=== PATIENT | male | born 1970 | race Caucasian/White ===

== ENCOUNTER 2025-04-25 18:33 | Emergency (ER) | payer MEDICARE, SELFPAY ==
--- NOTE | ~2025-04-25 | CT_ITS ---
CLINICAL HISTORY: RLQ pain CT abdomen and pelvis with contrast Comparison: None provided Findings: Mild bibasilar atelectasis and/or pneumonitis. Emphysematous changes and scarring also noted in the imaged lung bases. Mild/borderline cardiomegaly partially imaged. Steatotic change of the fat deposition of the liver noted. Gallbladder is distended. Imaged CBD measures 1 cm diameter. Adjacent low-density in the pancreas measures 2.2 cm, involving head and uncinate process of the pancreas, not further characterized by CT. Differential considerations include forming pseudo sinus dorsal sequela of pancreatitis. Pancreatic neoplasm not excluded given mild/borderline ductal dilatation of the imaged main pancreatic duct. Acute adjacent inflammatory stranding is noted as can be seen with a acute and/or recurrent pancreatitis. Mild bilateral adrenal hyperplasia. Spleen is nonenlarged. No hydronephrosis. Calcified and noncalcified plaque involving the imaged aorta and its branches. Small mesenteric, peripancreatic, and retroperitoneal lymph nodes are nonspecific and likely reactive. Mild small bowel dilatation likely due to sentinel loop ileus including left hemiabdomen. No definite small bowel obstruction at this time. Imaged appendix is within normal limits (image 53 of series 3). Wall thickening of the large intestine is nonspecific and may reflect colitis, including imaged cecum. Otherwise, severe stool burden present. Prostate gland measures 4.4 cm transverse. Mild wall thickening of the urinary bladder is nonspecific. Degenerative changes include the hips, SI joints, and spine. Degenerative disc changes and facet arthropathy are multifocal. Mild retrolisthesis of the L3-L4. Moderate height loss of the T11 compression fracture appears old/chronic and accentuated by upper endplate Schmorl's node. Vacuum disc phenomenon is multifocal. IMPRESSION: 1. Acute inflammatory stranding in the upper abdomen is concerning for acute or recurrent pancreatitis. 2. Mild biliary ductal dilatation and borderline pancreatic duct dilatation of the nonspecific by CT. Please consider ERCP, if clinically indicated, when clinically able. 3. Indeterminate cystic structure involving head and uncinate process of the pancreas may reflect sequela of pancreatitis. Please consider short-term follow-up or additional diagnostics. Pancreatic neoplasm not excluded by CT at this time. This document has been electronically signed by: Brandyn Davies MD on 04/26/2025 02:26:35
[2025-04-25 18:44] VITALS: BP 164/102; PULSE 102; O2SAT 97
[2025-04-25 18:50] VITALS: BP 175/106; PULSE 93; RESP 16; TEMP 36.8; O2SAT 97; BMI 22.0
[2025-04-25 20:05] LABS: MANUAL DIFF FLAG NO
[2025-04-25 20:07] VITALS: BP 178/105; PULSE 93; RESP 19; O2SAT 96
--- NOTE | 2025-04-25 20:07 | PC.NURSE ---
Labs drawn and sent for analysis. Results pending.
[2025-04-25 20:08] LABS: Appearance Urine Clear; Glucose Urine UA Negative (Negative); PH 6.0 (5.0-9.0); Specific Gravity - Urine 1.010 (1.005-1.025)
[2025-04-25 20:11] LABS: Hematocrit 45.0 % (42.0-52.0); Hemoglobin 16.2 g/dl (14.0-18.0); Imm Gran Abs Auto 0.12 X10*3/uL (0.00-0.03); Imm Gran Pct Auto 0.9 % (0.0-0.4); Lymphocytes Absolute Auto 2.0 X10*3/uL (1.2-4.9); Mean Corpuscular HGB Conc 36.0 g/dl (31.0-36.0); Mean Corpuscular Hemoglobin 34.2 pg (27.0-33.0); Mean Corpuscular Volume 94.9 fL (80.0-98.0); NRBC Abs Auto 0.000 X10*3/uL (0.0-0.012); NRBC Pct Auto 0.0 /100WBC (0.0-0.2); Platelet Count 348 X10*3/uL (160-400); Red Blood Count 4.74 X10*6/uL (4.60-5.80); White Blood Count 14.1 X10*3/uL (4.8-10.8)
[2025-04-25 20:20] LABS: Alanine Aminotransferase 9 U/L (0-40); Albumin Level 4.6 g/dL (3.5-5.0); Alkaline Phosphatase 102 U/L (39-117); Anion Gap 14 (12-20); Aspartate Amino Transferase 24 U/L (5-37); Blood Urea Nitrogen 5 mg/dL (9-16); Calcium 9.3 mg/dL (8.4-10.2); Carbon Dioxide 26 mmol/L (22-29); Chloride 100 mmol/L (96-108); Creatinine Clr Calc Pharmacy 114.8; Estimated Glomerular Filt Rate > 60; Potassium 3.8 mmol/L (3.3-5.1); Sodium 136 mmol/L (135-145); Total Protein 7.2 g/dL (6.5-8.0)
--- NOTE | 2025-04-25 20:52 | ED.GENADULT ---
HPI - General Adult General Chief complaint: General Medical Stated complaint: lower Ab pain and cramps x2 days radiates to back Time Seen by Provider: 04/25/25 20:50 Source: patient, RN notes reviewed and old records reviewed Mode of arrival: ambulatory Limitations: no limitations History of Present Illness ED Provider: Estefanía MADRIGAL narrative: 55-year-old male presents for evaluation of right-sided abdominal pain. He reports that he was lifting 3 days ago when he was lifting up his bed frame without any assistance. He did not have any pain at that time but developed pain the next morning pain He thought he had pulled a muscle in his head and uncinate back pain His pain worsened, was initially periumbilical now localized to the right lower abdomen. He denies any other significant symptoms including nausea vomiting, diarrhea, black or bloody stool Denies any fevers or chills pain Denies any burning with urination pain His pain radiates to his back in his currently a 01/01 Related Data Allergies Allergy/AdvReac Type Severity Reaction Status Date / Time Seasonal Allergies Allergy Intermediate Itchy Eyes Verified 04/25/25 18:56 Review of Systems Constitutional: Constitutional: Denies body ache(s), Denies chills and Denies fever(s) Eyes: Eyes: Denies blurry vision ENT: Denies vertigo and Denies dizziness Cardiovascular: Cardiovascular: Denies chest pain and Denies dyspnea on exertion Respiratory: Respiratory: Denies cough and Denies dyspnea on exertion Gastrointestinal: Gastrointestinal: Reports abdominal pain, Denies nausea and Denies vomiting Musculoskeletal: Musculoskeletal: Denies back pain Integumentary/Breasts: Skin/Breast: Denies rash Neurologic: Denies vertigo and Denies dizziness [facility] Social History Social History Alcohol intake: current Smoked in Last 30 Days: Yes Use of substances other than those prescribed or required for medical reasons: No Advance Directives: No Advance Directives Information Provided: No Physical Exam ED Vital Signs: Vital Signs - 24 hr 04/25/25 18:50 04/25/25 20:07 04/25/25 21:55 Temperature 98.3 F 97.7 F Pulse Rate 93 93 98 Respiratory Rate 16 19 18 Blood Pressure 175/106 H 178/105 H 174/104 H Pulse Oximetry 97 96 97 Oxygen Delivery Method Room Air Room Air Room Air BMI result Body Mass Index 22.0 Const General: healthy appearing, comfortable, no acute distress, alert and awake Nutritional Appearance: well nourished Orientation/consciousness: patient oriented x3 HENMT Head: Yes normocephalic and Yes atraumatic Eyes Eyelids: Yes eyelids normal Conjunctivae: conjunctivae normal Sclerae: sclerae normal Corneas: corneas normal Pupils: Equal, round and reactive pupils present EOM: EOMs intact bilaterally Neck Neck: Yes full ROM Resp Effort & Inspection: normal respiratory effort, able to speak in complete sentences and not labored Cardio Rate: regular rate Rhythm: regular rhythm GI Inspection: No distended Palpation (GI): Soft to palpation, not firm, Tenderness to palpation present (GI) in the RLQ and in the RUQ; Bardales's sign negative, Guarding due to palpation present (GI) in the RLQ and not rigid Auscultation: normoactive bowel sounds Skin General skin exam: elasticity normal Neuro General: patient oriented x3 Cranial nerves: Yes Equal, round and reactive pupils present and Yes Bilaterally intact EOM present Cognition (Neuro): normal cognition Extrem Other: Moving all extremities well without any obvious deformities Course Reevaluation(s) Reevaluation #1: The patient expressed desire to leave against medical advice prior to his CT scan that took several hours to be obtained. I was able to convince the patient to wait for the pictures to be taken but he does not want to wait for the report. He understands the risks of leaving of acute appendicitis and ultimately appendiceal perforation and sepsis/peritonitis. He reports he will come back if he feels worse or develops a fever Time: 00:16 Medications Administered Discontinued Medications Generic Name Dose Route Start Last Admin Trade Name Gustavo PRN Reason Stop Dose Admin Iohexol 85 ml 04/26/25 00:02 04/26/25 00:03 Iohexol 350 Mg/Ml 100 Ml Infus..Btl IV 04/26/25 00:03 85 ml ONCE ONE Administration Ketorolac Tromethamine 30 mg 04/25/25 21:17 04/25/25 21:35 Ketorolac Tromethamine 30 Mg/Ml Vial IVPUSH 04/25/25 21:18 30 mg ONCE ONE Administration Medical Decision Making Medical Decision Making MDM Narrative: 55-year-old male presents for evaluation of abdominal pain. The patient reports his pain started the day after lifting heavy, this possibly has a muscle strain or inguinal hernia. However he has a leukocytosis of 14.1 1000. His pain was initially umbilical and radiates to the right lower abdomen, I am concerned for acute appendicitis. Plan for CT scan to evaluate. His urinalysis is clear, less likely obstructive uropathy or pyelonephritis Differential Diagnosis Differential Diagnoses: The differential diagnosis associated with the presentation includes As above Lab Data MDM Lab Attestation statement: I reviewed the patient's lab results. Mild leukocytosis, no significant anemia. Normal platelet count. No electrolyte abnormalities warranting intervention. 04/25/25 20:01 04/25/25 20:01 Labs: Lab Results 04/25/25 04/25/25 Range/Units 19:56 20:01 WBC 14.1 H (4.8-10.8) X10*3/uL RBC 4.74 (4.60-5.80) X10*6/uL Hgb 16.2 (14.0-18.0) g/dl Hct 45.0 (42.0-52.0) % MCV 94.9 (80.0-98.0) fL MCH 34.2 H (27.0-33.0) pg MCHC 36.0 (31.0-36.0) g/dl RDW 13.1 (11.0-16.0) % Plt Count 348 (160-400) X10*3/uL MPV 9.0 L (9.4-12.4) fL Immature Gran % (Auto) 0.9 H (0.0-0.4) % Neut % (Auto) 70.8 (45-73) % Lymph % (Auto) 14.5 L (20-40) % [place] % (Auto) 7.6 (2-11) % Eos % (Auto) 5.6 H (0-4) % Baso % (Auto) 0.6 (0-2) % Lymph # (Auto) 2.0 (1.2-4.9) X10*3/uL Churchill # (Auto) 1.1 (0.1-1.2) X10*3/uL Eos # (Auto) 0.8 H (0.0-0.4) X10*3/uL Baso # (Auto) 0.1 (0.0-0.2) X10*3/uL Abs Immat Gran (auto) 0.12 H (0.00-0.03) X10*3/uL Absolute Neuts (auto) 10.0 H (2.0-8.3) x10*3/uL Absolute Nucleated RBC 0.000 (0.0-0.012) X10*3/uL Nucleated RBC % (auto) 0.0 (0.0-0.2) /100WBC Sodium 136 (135-145) mmol/L Potassium 3.8 (3.3-5.1) mmol/L Chloride 100 (96-108) mmol/L Carbon Dioxide 26 (22-29) mmol/L Anion Gap 14 (12-20) BUN 5 L (9-16) mg/dL Creatinine 0.66 (0.5-1.4) mg/dL Estim Creat Clear Calc 114.8 Estimated GFR > 60 Random Glucose 96 (60-115) mg/dL Calcium 9.3 (8.4-10.2) mg/dL Total Bilirubin 0.6 (0.0-1.0) mg/dL AST 24 (5-37) U/L ALT 9 (0-40) U/L Alkaline Phosphatase 102 (39-117) U/L Total Protein 7.2 (6.5-8.0) g/dL Albumin 4.6 (3.5-5.0) g/dL Urine Color Yellow Urine Appearance Clear Urine pH 6.0 (5.0-9.0) Ur Specific [place] 1.010 (1.005-1.025) Urine Protein Negative (Neg-Trace) mg/dL Urine Glucose (UA) Negative (Negative) mg/dL Urine Ketones 15 (Negative) mg/dL Urine Blood Negative (Negative) Urine Nitrite Negative (Negative) Ur Leukocyte Esterase Negative (Negative) Discharge Plan Discharge Clinical Impression: Abdominal pain Patient Disposition: Left Against Medical Advice Instructions: Abdominal Pain (ED) Additional Instructions: [place] [id number]. Given the location and radiation of your pain I am concerned for acute appendicitis. Therefore you are leaving against medical advice as you are leaving prior to the report of your CT scan. Return to the ER immediately if you develop severe or worsening pain, or if you develop a fever. Stand Alone Forms: Against Medical Advice Print Language: Faroese
[2025-04-25 21:55] VITALS: BP 174/104; PULSE 98; RESP 18; TEMP 36.5; O2SAT 97
--- NOTE | 2025-04-25 22:03 | PC.NURSE ---
Addendum entered by Lore Sumner 04/25/25 22:03: AUGUST Euceda aware of BP, no new orders at this time Original Note: aware of BP
[2025-04-26] MEDS: iohexoL 350 MG/ML 100 ML INFUS..BTL 85 ML IV (00:03)
[2025-04-26 00:18] VITALS: BP 171/102; PULSE 100; RESP 20; TEMP 36.6; O2SAT 99
--- NOTE | 2025-04-26 00:29 | PC.NURSE ---
pt requesting to leave after CT scan. provider aware. pt left AMA
[2025-04-26 00:30] VITALS: BP 171/102; PULSE 100; RESP 20; TEMP 36.6; O2SAT 99
== END 2025-04-26 02:32 | disposition left against medical advice (07) ==
PROVIDERS: Emergency Provider Emergency Medicine Emergency Medical Services; PCP Family Medicine
DX: R10.9 Unspecified abdominal pain (principal); Z53.29 Procedure and treatment not carried out because of patient's decision for other reasons
CPT/HCPCS: 36415; 74177; 80053; 81003; 85025; 96374; 99284; 99285; J1885; Q9967

== ENCOUNTER → 2025-04-25 21:17 | Outpatient (BNV) | payer MEDICARE, MEDICAID, SELFPAY | PROVIDERS: Emergency Provider Emergency Medicine Emergency Medical Services; PCP Family Medicine; Visit Provider Radiology Neuroradiology | DX: K83.8 Other specified diseases of biliary tract (principal) | CPT/HCPCS: 74177 ==

== ENCOUNTER 2025-06-24 21:07 | Inpatient (IN) | payer MEDICARE, SELFPAY ==
--- OUTSIDE RECORDS SUMMARY | 2014-03-19 23:00 | XMS_ITS | Encounter Summary ---
Author Organization [facility] Address [address] [place] [phone] Phone Care Team Providers Care Plant Changer Name Role Phone Unavailable Primary Care Provider Unavailabl e Reason for Visit * MRI/CAT Scan - Closed Specialty Diagnoses / Procedures Referred By Libertad ellis Referred To Contact Procedures MRI Brain Outside (No Interpretation) System, Provider Not In, [facility] [address] [address] Referral ID Status Reason Start Date Expiration Date Visits Re quested Visits Authorized [id number] Closed 11/23/2017 11/23/2018 1 1 Encounter Details Date Type Department Care Team (Late st Contact Info) Description 03/20/2014 Hospital Encounter [facility],Outside Imaging [address] [place] [address] System, Provider Not In, [facility] [address] [address] Social History Tobacco Use Types Packs/Day Years Used Date Smoking Tobacco: Every Day Cigarettes 0.5 30 Smokeless Tobacco: Never Alcohol Use Standard Drinks/Week Comments Yes 2 (1 standard drink = 0.6 oz pur e alcohol) occasionally Child or Family Care Answer Date Record ed Do you have problems with on e of the following making it difficult for you to work, study, or receive health care? I choose not to answer 07/14/2021 Education Answer Date Recorded Are you interested in more education? Not on kirk e 07/19/2023 Are you concerned about learning? Not on file 07/19/2023 No 07/19/2023 No 07/19/2023 Food Answer Date Recorded Within the past 6 months we worried whether our food would run out before we got money to buy more. Never True 07/14/2021 Within the past 6 months the food we bought just didn't last and we didn't have enough money to get more. Never True Residential Stability Answer Date Recor ded What is your housing situation today? I have aracelis frazier 07/14/2021 How many times have you moved in the past 12 tue ths? One time 07/14/2021 Paying for Meds Answer Date Recorded Do you have trouble paying for medicines? No 07/14/2021 Paying Utility Bills Answer Date Record ed Do you have trouble paying your heating or elect ricity bill? No 07/14/2021 Transportation Answer Date Recorded Has the lack of transportati on kept you from medical appointments or from getting medications? I choose not to answer 07/14/2021 Unemployment Answer Date Recorded Are you currently unemployed or working on a part-time or temporary basis, and looking for work? No 07/14/2021 Digital Access Answer Date Recorded No 12/20/2022 No 12/20/2022 Reliable internet access at home? Not on file 12/20/2022 Device with a working camera? Not on file Sex and Gender Information Value Date Recorded Sex Assigned at Male 09/22/2017 6:08 PM EST Legal Sex Male 9:37 PM EDT Gender Identity Male 09/22/2017 6:08 PM EST Sexual Orientation Lesbian or Mcnally 09/22/2017 6: 08 PM EST Occupation Industry Job Start Date Job End Date Disabled Not on file Not on file Not on file documented as of this encounter Functional Status * Calculated C-SSRS Risk Score (Lifetime/Recent) Answer Date of Assessment Author No Risk Indicated 06/18/2022 4:11 AM Veronica Faye RN * [place] Suicide Severity Rating Scale (Screener/Recent Self-Report) Question Answer Date of Assessment Author 1. Wish to be (Past 1 Month) No 022 4:11 AM Veronica Amos, DEBBY 2. Non-Specific Active Suici eliseo Thoughts (Past 1 Month) No 06/18/2022 4:11 AM Nikos Amos, RN 6. Suicidal Behavior (Lifetime) No 4:11 AM Veronica Amos, DEBBY documented as of this encounter Plan of Treatment Not on file documented as of this encounter Procedures Procedure Name Priority Date/Time Associated Diagnosis Comments MRI BRAIN OUTSIDE (NO INTERPRETATION) Routine 03/20/2014 12:00 AM EDT documented in this encounter Results * MRI Brain Outside (No Interpretation) (03/20/2014 12:00 AM EDT) Narrative SYSTEMGENERATED, DOCUMENTATION - 11/23/2017 2:01 PM EDT This study is for PACS storage only and not for interpretation. us Provider Not In System [facility] OUTSIDE IMAG[facility] W /OUT INTERPRETATION Final Result documented in this encounter Visit Diagnoses Not on filedocumented in this encounter Additional Source Comments The information contained in this document represents components of the legal health record. It is not the complete legal health record.[facility]
--- NOTE | ~2025-06-24 | CT_ITS ---
CLINICAL HISTORY: epigastric pain CT abdomen and pelvis with contrast Comparison: CT/SR - CT ABDOMEN PELVIS W IV CON - 04/25/25 23:58 EDT Findings: LIMITED CHEST: Scarring/atelectasis at the lung bases. LIVER: No focal liver lesion. BILIARY: No gallbladder wall thickening, radiopaque stone, or ductal dilatation. PANCREAS: Increased peripancreatic inflammatory stranding and peripancreatic edema. No organized fluid collection. Normal parenchymal enhancement. There is again question of a hypoenhancing mass in the pancreatic head measuring 1.9 x 1.4 cm on today's exam. SPLEEN: No splenomegaly. KIDNEYS: No hydronephrosis or radiopaque stone. ADRENALS: No nodule. VASCULAR: No aneurysm. 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 RETROPERITONEUM: No lymphadenopathy or mass. BOWEL/MESENTERY: No evidence of obstruction. No free fluid or air. ABDOMINAL WALL: No mass or significant abnormality. URINARY BLADDER: No focal wall thickening. PELVIC NODES: No pelvic lymphadenopathy. PELVIC ORGANS: Normal for age. BONES: No acute fracture. OTHER: Negative. IMPRESSION: Compared to prior examination on 04/26/2025, interval increase in peripancreatic inflammatory stranding and peripancreatic edema suggesting ongoing pancreatitis. No organized fluid collection or abscess. Pancreatic head hypoenhancing lesion measuring 1.9 cm, suspicious for underlying mass. 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 This document has been electronically signed by: eNena Johnson MD on 06/25/2025 00:41:11
--- NOTE | ~2025-06-24 | MR_ITS ---
EXAMINATION: MRCP HISTORY: ?pancreatitis and pancreatic mass COMPARISON: Correlation is made with CT scans of the abdomen performed 06/24/2025 and 04/26/2025. TECHNIQUE: Axial gradient echo in and out of phase T1, axial T2 and fat suppressed T2, and coronal haste T2 with fat saturation images were obtained through the abdomen. 3D MRCP Reconstructed images and thick slab imaging of the biliary tree were obtained. FINDINGS: There is heterogeneous loss of signal intensity within the liver on opposed phase imaging, consistent with steatosis. There is no intrahepatic biliary ductal dilatation. There is a lack of a normal flow void in the left intrahepatic portal vein compatible with thrombosis. There is extension into the main portal vein. No evidence of cholelithiasis. The common bile duct is normal in caliber. There is no evidence of choledocholithiasis. The pancreas is enlarged and there is a moderate to large amount of peripancreatic inflammatory stranding and fluid, consistent with the given history of acute pancreatitis. Evaluation for pancreatic necrosis is not possible without intravenous contrast material. Again seen is a 1.7 x 1.3 cm probable mass of the pancreatic head. This cannot be adequately evaluated without intravenous contrast. The pancreatic duct is normal in caliber. The spleen, adrenals, and kidneys have an unremarkable unenhanced appearance. No retroperitoneal lymphadenopathy is identified. The visualized bones demonstrate normal marrow signal intensity. MR/MR MRCP IMPRESSION: 1. Findings consistent with acute pancreatitis as described. Evaluation for necrosis is not possible without intravenous contrast. 2. Probable 1.7 x 1.3 cm mass of the pancreatic head. This cannot be adequately evaluated without intravenous contrast material. 3. 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 4. No evidence of cholelithiasis or choledocholithiasis. 5. Findings were sent to iVckie Garcia NP by secure text message on 06/25/2025 at 11:05 AM. Electronically signed by: Raad Rosa MD 06/25/2025 11:05 AM [facility]
[2025-06-24 21:16] VITALS: BP 168/92; PULSE 88; O2SAT 100
[2025-06-24 21:21] VITALS: BP 170/93; PULSE 88; RESP 20; TEMP 36.7; O2SAT 96; BMI 22.0
[2025-06-24 22:06] LABS: MANUAL DIFF FLAG NO
[2025-06-24 22:14] LABS: Hematocrit 47.3 % (42.0-52.0); Hemoglobin 16.5 g/dl (14.0-18.0); Imm Gran Abs Auto 0.17 X10*3/uL (0.00-0.03); Imm Gran Pct Auto 1.2 % (0.0-0.4); Lymphocytes Absolute Auto 2.1 X10*3/uL (1.2-4.9); Mean Corpuscular HGB Conc 34.9 g/dl (31.0-36.0); Mean Corpuscular Hemoglobin 33.5 pg (27.0-33.0); Mean Corpuscular Volume 96.1 fL (80.0-98.0); NRBC Abs Auto 0.000 X10*3/uL (0.0-0.012); NRBC Pct Auto 0.0 /100WBC (0.0-0.2); Platelet Count 295 X10*3/uL (160-400); Red Blood Count 4.92 X10*6/uL (4.60-5.80); White Blood Count 14.6 X10*3/uL (4.8-10.8)
[2025-06-24 22:16] LABS: Appearance Urine Clear; Glucose Urine UA Negative (Negative); PH 5.5 (5.0-9.0); Specific Gravity - Urine 1.010 (1.005-1.025)
[2025-06-24 22:29] LABS: Alanine Aminotransferase 18 U/L (0-40); Albumin Level 4.6 g/dL (3.5-5.0); Alkaline Phosphatase 94 U/L (39-117); Anion Gap 14 (12-20); Aspartate Amino Transferase 49 U/L (5-37); Blood Urea Nitrogen 7 mg/dL (9-16); Calcium 9.1 mg/dL (8.4-10.2); Carbon Dioxide 29 mmol/L (22-29); Chloride 98 mmol/L (96-108); Creatinine Clr Calc Pharmacy 101.0; Estimated Glomerular Filt Rate > 60; Potassium 4.3 mmol/L (3.3-5.1); Sodium 137 mmol/L (135-145); Total Protein 7.2 g/dL (6.5-8.0)
[2025-06-24 22:39] LABS: Lipase > 3000 U/L (8-78)
[2025-06-24 23:05] LABS: Triglycerides 50 mg/dL (<150)
--- NOTE | 2025-06-24 23:18 | ED_ITS ---
HPI - General Adult General Chief complaint: Abdominal Pain Stated complaint: R side flank pain x1 week Time Seen by Provider: 06/24/25 22:48 Source: patient and EMS Mode of arrival: EMS Limitations: no limitations History of Present Illness ED Provider: Dr. Ana Paula Escobedo HPI narrative: patient comes to the emergency room complaining of 2 weeks of epigastric pain that radiates towards the back. Patient states that today he started having pain and becoming more nauseous and vomiting. patient admits that he drank 4 beers throughout the day today, states that he was watching the football game. States that he usually does not drink large amounts of alcohol, binge drinking or chronic EtOH drinker. Patient denies any history of gastritis, small bowel obstructions or kidney stones. No issues with gallstones in the past. Related Data Allergies Allergy/AdvReac Type Severity Reaction Status Date / Time Seasonal Allergies Allergy Intermediate Itchy Eyes Verified 06/24/25 21:23 Review of Systems 2 Review of Systems: Constitutional : No Weight loss, No Fever, No Chills, No Night Sweats, No Fatigue, No Malaise ENT/Mouth : No Hearing loss, No Ear Pain, No Nasal Congestion, No Sinus Pain, No Hoarseness, No sore throat, No Rhinorrhea, No Swallowing Difficulty Eyes: No Eye Pain, No Swelling, No Redness, No Foreign Body, No Discharge, No Vision Changes Cardiovascular : No Chest Pain, No SOB, No Dyspnea on Exertion, No Orthopnea, No Edema, No Palpitations Respiratory : No Cough, No Sputum, No Wheezing, No Smoke Exposure, No Dyspnea Gastrointestinal : Complaining of nausea and vomiting, no diarrhea, complaining of epigastric pain radiating towards the back, No Hematochezia, No Melena Genitourinary : no irregular bleeding, No Dysuria, No Urinary Frequency, No Hematuria, No Urinary Incontinence, No Urgency, No Flank Pain, No Urinary Flow Changes, No Hesitancy Musculoskeletal : No joint pain, No Myalgias, No Joint Swelling Skin : No Skin Lesions, No rash Neuro : No Weakness, No Numbness, No Paresthesias, No Loss of Consciousness, No Dizziness, No Headache Psych : No Anxiety/Panic, No Depression, No SI/HI/AH/VH, No Social Issues, Heme/Lymph: No Bruising, No Bleeding,No Lymphadenopathy Endocrine : No Polyuria, No Polydipsia, No Temperature Intolerance PMFSH Past Medical History Medical History Seizures Parkinson's disease Social History Social History Alcohol intake: current Alcohol intake frequency: a few times a week Smoked in Last 30 Days: No Use of substances other than those prescribed or required for medical reasons: No Advance Directives: No Advance Directives Information Provided: Yes Physical Exam ED Exam Exam: Appearance: Alert. Oriented X3. seems uncomfortable Eyes: Pupils equal, round and reactive to light. has xanthelasma under the right lower eyelid ENT: Pharynx normal. Neck: Normal inspection. Neck supple. No lymph nodes noted. No crepitus CVS: Normal heart rate and rhythm. Pulses normal. Normal S1 and S2 Respiratory: No respiratory distress. Breath sounds normal. No Wheezing. No rales Abdomen: Soft tenderness to palpation in the epigastric area, mild guarding, no rebound Skin: Skin warm and dry. Normal skin color. Normal skin turgor. Extremities: No lower extremity edema. No Lacerations. No Rash Neuro: Oriented X 3. No motor deficit. No sensory deficit. Moving all extremities. No slurred speech. CN 2 through 12 grossly intact Psych: calm, cooperative, tearful Vital Signs: Vital Signs - 24 hr 06/24/25 21:21 Temperature 98.0 F Pulse Rate 88 Respiratory Rate 20 Blood Pressure 170/93 H Pulse Oximetry 96 Oxygen Delivery Method Room Air BMI result Body Mass Index 22.0 Course Course Course Narrative: as patient was waiting in triage, it was noted that patient's lipase is greater than 3000. Triglycerides within normal limits. Patient denies any history of kidney stones, alcohol abuse or dependence. Patient does take lamotrigine and Keppra, both which can cause pancreatitis CT scan of the abdomen pelvis pending. Patient is empirically getting IV fluids, nausea meds and pain medications. Medications Administered Generic Name Dose Route Start Last Admin Trade Name Freq PRN Reason Stop Dose Admin Sodium Chloride 3,000 mls @ 999 mls/hr 06/24/25 22:50 06/24/25 23:13 Ns IVCONT 06/25/25 01:50 999 mls/hr .Q3H1M ONE Administration Discontinued Medications Generic Name Dose Route Start Last Admin Trade Name Freq PRN Reason Stop Dose Admin Iohexol 85 ml 06/24/25 23:42 06/24/25 23:43 Iohexol 350 Mg/Ml 100 Ml Infus..Btl IV 06/24/25 23:43 85 ml ONCE ONE Administration Morphine Sulfate 4 mg 06/24/25 22:50 06/24/25 23:13 Morphine Sulfate 4 Mg/Ml Cartridge IVPUSH 06/24/25 22:51 4 mg ONCE ONE Administration Protocol Ondansetron HCl 4 mg 06/24/25 22:50 06/24/25 23:11 Ondansetron Hcl 4 Mg/2 Ml Vial IVPUSH 06/24/25 22:51 4 mg ONCE ONE Administration Medical Decision Making Medical Decision Making [facility] Narrative: My interpretation of labs: Patient's white blood cell count 14.6. Chemistry within normal limits, normal LFTs, lipase greater than 3000, triglycerides normal, ETOH 128. As mentioned above, patient states that he was drinking beer earlier today watching a football game, denies alcohol abuse. Patient denies previous history of gallbladder stones. Lamotrigine and Keppra are known to cause pancreatitis in rare cases. CT scan of the abdomen pelvis shows pancreatitis, possible mass in the pancreas. Patient may need an MRI in the morning or other advanced imaging. Patient already received IV fluids, pain medication. Patient is still complaining of ongoing pain. Nausea has resolved. I discussed the above-mentioned with Dr. Deleon from the Medicine team, patient being admitted Differential Diagnosis Differential Diagnoses: The differential diagnosis associated with the presentation includes ( pancreatitis, peptic ulcer disease, peptic ulcer perforation, SBO) Admission/Observation Consideration of admission/observation: Escalation of care including admission/observation considered Consult Healthcare Provider Management of the patient was discussed with: Hospitalist Lab Data [facility] Lab Attestation statement: I reviewed the patient's lab results. 06/24/25 21:56 06/24/25 21:56 Labs: Lab Results 06/24/25 06/24/25 Range/Units 21:53 21:56 WBC 14.6 H (4.8-10.8) X10*3/uL RBC 4.92 (4.60-5.80) X10*6/uL Hgb 16.5 (14.0-18.0) g/dl Hct 47.3 (42.0-52.0) % MCV 96.1 (80.0-98.0) fL MCH 33.5 H (27.0-33.0) pg MCHC 34.9 (31.0-36.0) g/dl RDW 14.0 (11.0-16.0) % Plt Count 295 (160-400) X10*3/uL MPV 8.8 L (9.4-12.4) fL Immature Gran % (Auto) 1.2 H (0.0-0.4) % Neut % (Auto) 68.0 (45-73) % Lymph % (Auto) 14.4 L (20-40) % [place] % (Auto) 9.5 (2-11) % Eos % (Auto) 6.1 H (0-4) % Baso % (Auto) 0.8 (0-2) % Lymph # (Auto) 2.1 (1.2-4.9) X10*3/uL [place] # (Auto) 1.4 H (0.1-1.2) X10*3/uL Eos # (Auto) 0.9 H (0.0-0.4) X10*3/uL Baso # (Auto) 0.1 (0.0-0.2) X10*3/uL Abs Immat Gran (auto) 0.17 H (0.00-0.03) X10*3/uL Absolute Neuts (auto) 9.9 H (2.0-8.3) x10*3/uL Absolute Nucleated RBC 0.000 (0.0-0.012) X10*3/uL Nucleated RBC % (auto) 0.0 (0.0-0.2) /100WBC Sodium 137 (135-145) mmol/L Potassium 4.3 (3.3-5.1) mmol/L Chloride 98 (96-108) mmol/L Carbon Dioxide 29 (22-29) mmol/L Anion Gap 14 (12-20) BUN 7 L (9-16) mg/dL Creatinine 0.75 (0.5-1.4) mg/dL Estim Creat Clear Calc 101.0 Estimated GFR > 60 Random Glucose 90 (60-115) mg/dL Calcium 9.1 (8.4-10.2) mg/dL Total Bilirubin 0.5 (0.0-1.0) mg/dL AST 49 H (5-37) U/L ALT 18 (0-40) U/L Alkaline Phosphatase 94 (39-117) U/L Total Protein 7.2 (6.5-8.0) g/dL Albumin 4.6 (3.5-5.0) g/dL Triglycerides 50 (<150) mg/dL Lipase > 3000 H (8-78) U/L Urine Color Yellow Urine Appearance Clear Urine pH 5.5 (5.0-9.0) Ur Specific [place] 1.010 (1.005-1.025) Urine Protein Negative (Neg-Trace) mg/dL Urine Glucose (UA) Negative (Negative) mg/dL Urine Ketones Trace (Negative) mg/dL Urine Blood Negative (Negative) Urine Nitrite Negative (Negative) Ur Leukocyte Esterase Negative (Negative) Urine RBC 0-2 (0-2) /HPF Urine WBC 0-5 (0-5) /HPF Ur Squamous Epith Cells 0-2 (0-2) /HPF Urine Bacteria None Seen (None Seen) Hyaline Casts 0-2 (0-2) /LPF Ethyl Alcohol 128 mg/dL Independent Interpretation I performed an independent interpretation of an: CT Scan Radiology Impression Discussion of test interpretation with radiology: I have reviewed the radiologist's reading. Radiologist Impression: Findings: LIMITED CHEST: Scarring/atelectasis at the lung bases. LIVER: No focal liver lesion. BILIARY: No gallbladder wall thickening, radiopaque stone, or ductal dilatation. PANCREAS: Increased peripancreatic inflammatory stranding and peripancreatic edema. No organized fluid collection. Normal parenchymal enhancement. There is again question of a hypoenhancing mass in the pancreatic head measuring 1.9 x 1.4 cm on today's exam. SPLEEN: No splenomegaly. KIDNEYS: No hydronephrosis or radiopaque stone. ADRENALS: No nodule. VASCULAR: No aneurysm. 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 RETROPERITONEUM: No lymphadenopathy or mass. BOWEL/MESENTERY: No evidence of obstruction. No free fluid or air. ABDOMINAL WALL: No mass or significant abnormality. URINARY BLADDER: No focal wall thickening. PELVIC NODES: No pelvic lymphadenopathy. PELVIC ORGANS: Normal for age. BONES: No acute fracture. OTHER: Negative. IMPRESSION: Compared to prior examination on 04/26/2025, interval increase in peripancreatic inflammatory stranding and peripancreatic edema suggesting ongoing pancreatitis. No organized fluid collection or abscess. Pancreatic head hypoenhancing lesion measuring 1.9 cm, suspicious for underlying mass. 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 Critical Care Time Critical Care Time Critical Care Time: Yes Total Critical Care Time: 60 Attestation: I have personally provided critical care time. Time includes review of lab data, radiology results, discussion with consultants, and monitoring for potential decompensation. Intervention performed as documented. Discharge Plan Discharge Clinical Impression: Pancreatitis Patient Disposition: Admitted As Inpatient Print Language: Mongolian
[2025-06-24] MEDS: iohexoL 350 MG/ML 100 ML INFUS..BTL 85 ML IV (23:43)
[2025-06-25] VITALS (10 sets, daily range): BP systolic 125–190; BP diastolic 78–116; PULSE 102–115; RESP 16–18; TEMP 36.4–37.7; O2SAT 92–99; BMI 23.7
--- OUTSIDE RECORDS SUMMARY | 2025-06-25 00:26 | XMS_ITS | Encounter Summary ---
Author Organization [facility] Address [address] [place] [address] Phone Care Team Providers Care Acute Care Occupational Therapist Name Role Phone Robert Loredo DO Primary Care Provider [phone] Reason for Visit * Reason Onset Date Comments same day cancel 05/24/2025 Encounter Details Date Type Department Care Team (Late st Contact Info) Description 05/24/2025 Telephone [employer] [facility] [address] [place] [address] Robert Loredo DO [address] [place] [address] [email or web address] same day cancel Social History Tobacco Use Types Packs/Day Years [...] is your housing situation today? I have araeclis frazier 07/14/2021 How many times have you [...] on file documented as of this encounter Progress Notes * Jeff Graves - 05/24/2025 9:05 AM EDT 24-48 Hour No-Show Notice If caller not the patient: Name: Relationship: Cancel Appt Visit Type: SICK VISIT Cancelation Reason: Lack of Transportation Cancelation Detail: ride did not show up Was Appt Reschedule: Yes Why Reschedule was not performed (W/Detail) Awareness: I have reiterated our late cancellation policy to the caller. Agent Action: > Reason for Call: NO SHOW > Comment: Enter Cancel Appt date > Route: Route to FD if the No-Show is a future date. > Route: OXBOW SDV and Sick Visit No-Show, route to RN for rescheduling. Do not Call Center: Ensure the appt has been cancel from the future tab > Reiterate Scripting: Provide our late cancellation policy to the caller Required Scripting for Existing Patients: Thank you for notifying us about the cancellation. We will inform the provider. As a reminder, our policy requires at least 24 hours' notice for cancellations, as providers reserve time for your appointment, and short notice often makes it difficult to reschedule. You can cancel appointments anytime through your [facility]. We appreciate your understanding. Required Scripting for New Patients: Thank you for notifying us about the cancellation. We will inform the provider. Please be aware of our 48-hour cancellation policy for new patients. If you need to cancel or reschedule, we ask for at least 48 hours' notice. If you miss an appointment or cancel without sufficient notice, it will be marked as a No-Show appointment. We allow for two unforeseen circumstances under this policy. This policy ensures that our providers can manage their schedules effectively. Additionally, you can cancel appointments anytime through your [facility]. documented in this encounter Plan of Treatment Not on file documented as of this encounter Visit Diagnoses Not on filedocumented in this encounter Additional Health Concerns Assessment Noted Time PHQ-9 Depression Total Score: 6 07/14/20 9:18 AM EST PHQ-2 Depression Total Score: 3 07/14/20 9:18 AM EST documented as of this encounter Care Teams Acute Care Occupational Therapist Relationship Specialty Start Date End Date Robert Loredo DO [address] [place] [id number] PCP - General 07/28/17 documented as of this encounter Additional Source Comments The information contained in this document represents components of the legal health record. It is not the complete legal health record.[facility]
--- OUTSIDE RECORDS SUMMARY | 2025-06-25 00:26 | XMS_ITS | Encounter Summary ---
Author Organization [facility] Address [address] [place] [address] Phone Care Team Providers Care Mason Apprentice Name Role Phone Robert Loredo DO Primary Care Provider [phone] Robert Loredo DO Unavailable Encounter Details Date Type Department Care Team (Late st Contact Info) Description 09/07/2022 Procedure Pass [facility] Admitting Dept Virtual Department [address] [place], [place] [id number] Social History Tobacco Use Types Packs/Day Years [...] Answer Date Recorded Are you interested in help w ith more adult education (for example, completing high school, GED, job training, learning the [place] language, technical skills, or developing parenting skills)? No 07/14/2021 Food Answer Date Recorded Within the past [...] basis, and looking for work? No 07/14/2021 Sex and Gender Information Value Date Recorded [...] documented as of this encounter Care Teams Mason Apprentice Relationship Specialty Start Date End Date Robert Loredo DO [address] [place] [address] PCP - General 07/28/17 Robert Loredo DO [address] [place] [address] Insurance Assigned Provider 10/30/22 documented as of this encounter Additional Source Comments The information contained in this document represents components of the legal health record. It is not the complete legal health record.[facility]
--- OUTSIDE RECORDS SUMMARY | 2025-06-25 00:26 | XMS_ITS | Encounter Summary ---
Author Organization [facility] Address [address] [place] [address] Phone Care Team Providers Care Gluing Machine Operator Automatic Name Role Phone Robert Loredo DO Primary Care Provider [phone] Robert Loredo DO Unavailable Alejandra Reveles RN Unavailable [email or web address] Robert Loredo DO Unavailable Encounter Details Date Type Department Care Team (Late st Contact Info) Description 01/09/2018 Procedure Pass [facility], [address] [address] Social History Tobacco Use Types Packs/Day Years Used Date Smoking Tobacco: Every Day Cigarettes 1 30 Smokeless Tobacco: Never Comments:now only 2 cigs per day since deetox program 1 month ago Alcohol Use Standard Drinks/Week Comments No 0 (1 standard drink = 0.6 oz pur e alcohol) stopped drinking 4-6 weeks ago Sex and Gender Information Value Date Recorded [...] Diagnoses Not on filedocumented in this encounter Care Teams Gluing Machine Operator Automatic Relationship Specialty Start Date End Date Robert Loredo DO [address] [place] [address] [email or web address] PCP - General 07/28/17 Robert Loredo DO [address] [place] [address] [email or web address] Insurance Assigned Provider 03/25/18 Alejandra Reveles RN [address] [place] [address] [email or web address] 01/21/2002/05 Robert Loredo DO [address] [place] [address] Insurance Assigned Provider 10/30/22 documented as of this encounter Additional Source Comments The information contained in this document represents components of the legal health record. It is not the complete legal health record.[facility]
--- OUTSIDE RECORDS SUMMARY | 2025-06-25 00:26 | XMS_ITS | Encounter Summary ---
Author Organization [facility] Address [address] [place] [id number] Phone Care Team Providers Care Handyperson Name Role Phone Robert Loredo DO Primary Care Provider [phone] Robert Loredo DO Unavailable Alejandra Reveles RN Unavailable [email or web address] Robert Loredo DO Unavailable Reason for Referral * MRI/CAT Scan - Closed Specialty Diagnoses / Procedures Referred By Libertad ellis Referred To Contact Radiology Diagnoses Left hand weakness Numbness Lightheadedness Carpal tunnel syndrome, unspecified laterality White matter disease Procedures MRI Brachial Plexus (Left) MRI CHEST MRI NECK Dru Nuñez MD Phone: tel: fax: [email or web address] Referral ID Status Reason Start Date Expiration Date Visits Re quested Visits Authorized [id number] Closed 09/11/2018 09/11/2019 1 1 Encounter Details Date Type Department Care Team (Late st Contact Info) Description 08/31/2018 Ancillary Orders [facility] Department [address] [place] [id number] Dru Nuñez MD [address] [place] [address], [address] [place] [address] [email or web address] Left hand weakness; Numbness; Lightheadedness; Carpal tunnel syndrome, unspecified laterality; White matter disease; TIA (transient ischemic attack) Social History Tobacco Use Types Packs/Day Years Used Date Smoking Tobacco: Every Day Cigarettes 1 30 Smokeless Tobacco: Never Alcohol Use Standard Drinks/Week Comments Yes 0 (1 standard drink = 0.6 oz pur e alcohol) daily several 12 packs of beer Sex and Gender Information Value Date Recorded [...] on file documented as of this encounter Results * US Carotid Duplex (Bilateral) (09/11/2018 2:25 PM EST) Anatomical Region Laterality Modality Heart, Thoracic Vasculature, Neck Ultrasound 09/11/2018 3:15 PM EST Impressions 09/11/2018 3:18 PM EST Soft plaque evident in the carotid bulbs bilaterally of minor degree. No significant internal carotid artery stenosis is evident on either side. Vertebral arteries are patent with antegrade flow bilaterally. S/S: TIA POS - [id number] Narrative 09/11/2018 3:18 PM EST The carotid circulation is visualized well with grayscale imaging, color flow imaging, and Doppler spectral analysis. On the right there is a small amount of soft plaque in the carotid bulb evident. On the left there is a small amount of soft plaque in the carotid bulb evident. Both external carotid and vertebral arteries are patent with antegrade flow bilaterally. No internal carotid artery stenosis is seen on either side. The right internal carotid artery has a peak systolic velocity of 1.0 m/s with an end-diastolic velocity of 0.46 m/s. On the left the internal carotid artery has a peak systolic velocity of 0.87 m/s with an end-diastolic velocity of 0.39 m/s. Mild bilateral spectral broadening is evident. Any stenosis measurement is relative to the distal ICA diameters. Procedure Note Joe Salomon MD - 09/11/2018 The carotid circulation is visualized well with grayscale imaging, colorflow imaging, and Doppler spectral analysis. On the right there is asmall amount of soft plaque in the carotid bulb evident. On the leftthere is a small amount of soft plaque in the carotid bulb evident. Bothexternal carotid and vertebral arteries are patent with antegrade flowbilaterally. No internal carotid artery stenosis is seen on either side. The right internal carotid artery has a peak systolic velocity of 1.0 m/swith an end-diastolic velocity of 0.46 m/s. On the left the internalcarotid artery has a peak systolic velocity of 0.87 m/s with anend-diastolic velocity of 0.39 m/s. Mild bilateral spectral broadening isevident. Any stenosis measurement is relative to the distal ICA diameters. IMPRESSION: Soft plaque evident in the carotid bulbs bilaterally of minor degree. Nosignificant internal carotid artery stenosis is evident on either side.Vertebral arteries are patent with antegrade flow bilaterally. S/S: TIA POS - [id number] us Dru Nuñez MD US NEUROVASCULAR Final Re sult * MRI BRACHIAL PLEXUS WITH AND WITHOUT CONTRAST(LEFT) (09/11/2018 1:37 PM EST) Anatomical Region Laterality Modality Chest Magnetic Resonan ce 09/11/2018 1:40 PM EST Impressions 09/11/2018 6:10 PM EST Degenerative changes in the mid/lower cervical spine where there appear to be multiple levels of severe neural foraminal narrowing which may account for symptoms. This would be better assessed with a dedicated cervical spine MRI. Progressive height loss of a moderate to severe compression fracture of T6 with mild marrow edema on the STIR sequences indicating a more recent fracture. There is retropulsion which has mild mass effect on the ventral cord. [id number] Edited by: Marifer Nguyen on 09/11/2018 2:35 PM Narrative 09/11/2018 6:10 PM EST HISTORY: Left hand (fourth and fifth digits) into left elbow numbness for two years. Left hand cramping and weakness. No surgery or trauma. COMPARISON: None. CORRELATION: Chest x-ray 07/25/2018, CT cervical spine 07/20/2018, CT chest 07/22/2018, MRI cervical spine 01/17/2018. TECHNIQUE: Multiplanar imaging performed without and with gadolinium. FINDINGS: Multilevel degenerative changes in the spine greatest at C4-5 through C6-7 where there is severe bilateral neural foraminal narrowing at C4-5 and C5-6 and severe on the left at C6-7. Mildly progressive compression fracture of T6 with greater than 50% loss of vertebral body height. This shows mild edema on the STIR sequence indicating a more acute compression fracture. There is retropulsion primarily in the midline which has slight mass effect on the ventral aspect of the cord. No cord signal abnormality detected. No clear abnormality involving the roots, trunks, divisions, cords, and branches of the brachial plexus. Scalene musculature appears within normal limits. No evidence of muscle denervation. No evidence of cervical ribs. No abnormality within the thoracic outlet. No soft tissue mass apparent. No vascular abnormality identified. Mild mucosal thickening in the visualized paranasal sinuses. Procedure Note Latasha Villegas MD - 09/11/2018 HISTORY: Left hand (fourth and fifth digits) into left elbow numbness fortwo years. Left hand cramping and weakness. No surgery or trauma. COMPARISON: None. CORRELATION: Chest x-ray 07/25/2018, CT cervical spine 07/20/2018, CTchest 07/22/2018, MRI cervical spine 01/17/2018. TECHNIQUE: Multiplanar imaging performed without and with gadolinium. FINDINGS: Multilevel degenerative changes in the spine greatest at C4-5 through C6-7where there is severe bilateral neural foraminal narrowing at C4-5 andC5-6 and severe on the left at C6-7. Mildly progressive compression fracture of T6 with greater than 50% lossof vertebral body height. This shows mild edema on the STIR sequenceindicating a more acute compression fracture. There is retropulsionprimarily in the midline which has slight mass effect on the ventralaspect of the cord. No cord signal abnormality detected. No clear abnormality involving the roots, trunks, divisions, cords, andbranches of the brachial plexus. Scalene musculature appears within normal limits. No evidence of muscledenervation. No evidence of cervical ribs. No abnormality within the thoracicoutlet. No soft tissue mass apparent. No vascular abnormality identified. Mild mucosal thickening in the visualized paranasal sinuses. IMPRESSION: Degenerative changes in the mid/lower cervical spine where there appear hank multiple levels of severe neural foraminal narrowing which may accountfor symptoms. This would be better assessed with a dedicated cervicalspine MRI. Progressive height loss of a moderate to severe compression fracture of T6with mild marrow edema on the STIR sequences indicating a more recentfracture. There is retropulsion which has mild mass effect on the ventralcord. [id number] Edited by: Marifer Nguyen on 09/11/2018 2:35 PM Dru Nuñez MD IM MR HEAD/NECK Final Resul t documented in this encounter Visit Diagnoses Diagnosis Left hand weakness Muscle weakness (generalized) Numbness Disturbance of skin sensation Lightheadedness Dizziness and giddiness Carpal tunnel syndrome, unspecified laterality White matter disease TIA (transient ischemic attack) Unspecified transient cerebral ischemia Left hand weakness Muscle weakness (generalized) Numbness Disturbance of skin sensation Lightheadedness Dizziness and giddiness Carpal tunnel syndrome, unspecified laterality White matter disease TIA (transient ischemic attack) Unspecified transient cerebral ischemia documented in this encounter Care Teams Handyperson Relationship Specialty Start Date End Date Robert Loredo DO [address] [place] [id number] PCP - General 07/28/17 Robert Loredo DO [address] [place] [id number] Insurance Assigned Provider 03/25/18 Alejandra Reveles, DEBBY [address] [place] [address] [email or web address] Childcare Worker 01/21/2002/05 Robert Loredo DO [address] [place] [address] [email or web address] Insurance Assigned Provider 10/30/22 documented as of this encounter Additional Source Comments The information contained in this document represents components of the legal health record. It is not the complete legal health record.[facility]
--- OUTSIDE RECORDS SUMMARY | 2025-06-25 00:26 | XMS_ITS | Clinical Summary ---
Author Organization [facility] Address [address] [place] [id number] Phone Care Team Providers Care Tin Roofer Name Role Phone Robert Loredo DO Primary Care Provider [phone] Allergies Active Allergy Reactions Criticality Noted Date Comments Amlodipine GI Upset 11/03/2018 Pollens Extract 10/27/2017 Medications * This document contains information received from the source organization and may not represent a complete record from that organization. calcium carbonate 1,250 mg (500 mg elemental) capsule Take 1,250 mg by mouth 2 (two) times a day with meals. Active fexofenadine (COLTON) 180 MG tablet Take 180 mg by mouth daily. Active cetirizine (ZYRTEC) 10 MG tablet Take 1 tablet (10 mg total) by mouth daily. 90 tablet 3 11/16/2024 Active multivitamin per tablet Take 1 tablet by mouth daily. 90 tablet 3 11/16/2024 Active carbidopa-levodo pa (SINEMET) 25-100 mg per tabletIndication s:Parkinson's disease TAKE 1 TABLET BY MOUTH 3 TIMES DAILY 300 tablet 2 12/06/2024 Active levETIRAcetam (KEPPRA) 500 MG tablet TAKE 3 TABLETS BY MOUTH TWICE DAILY 600 tablet 2 12/06/2024 Active acetaminophen (TYLENOL) 500 MG tablet TAKE 1 TABLET BY MOUTH EVERY 6 HOURS NEEDED FOR PAIN 360 tablet 3 02/01/2025 Active lamoTRIgine (LAMICTAL) 150 MG IMMEDIATE release tabletIndication s:Parkinson's disease TAKE 1 TABLET BY MOUTH TWICE DAILY 200 tablet 2 02/18/2025 Active diclofenac sodium (VOLTAREN) 50 MG EC tablet TAKE 1 TABLET BY MOUTH TWICE DAILY 180 tablet 3 03/01/2025 Active levothyroxine (SYNTHROID, LEVOTHROID) 112 MCG tabletIndication s:Hypothyroidism , unspecified type TAKE 1 TABLET BY MOUTH EVERY MORNING 90 tablet 05/06/2025 Active Active Problems Problem Noted Date Diagnosed Date Xanthelasma 11/16/2024 Assessment & Plan (11/16/2024 2:06 PM EDT): Will check lipids. Pt may wish to see Derm or plastics in the future to have lesion removed Arthralgia 11/16/2024 Assessment & Plan (11/16/2024 2:08 PM EDT): ? Inflammatory OA ? Lyme ? OA. Will order labs and refer to Rheumatology to further evaluate. Look to obtain imaging from previous evaluations. Chronic hip pain, right 02/17/2024 Assessment & Plan (02/17/2024 2:08 PM EDT): I suspect OA. Will order xray and refer to Orthopedics for further evaluation. Pt may be a candidate for PT and injection. Pt may use tylenol for discomfort in the interim. Chronic midline low back pain with bilateral sci atica 08/05/2022 Assessment & Plan (10/28/2023 11:55 AM EDT): Referral to physiatry. May use celebrex for pain. May be a candidate for spinal injections and PT. Assessment & Plan (08/05/2022 3:02 PM EST): Pt given handout with some gentle stretches to do at start of day some before getting out of bed, every day. If no improvement or worsening can consider PT referral. Pain in both thighs 08/05/2022 Assessment & Plan (08/05/2022 3:03 PM EST): Probably radicular in nature but tender right quad and so in addition to above back stretches, recommend massage, heat and gentle stretching to both thighs Vasectomy status 03/27/2021 Assessment & Plan (03/27/2021 8:07 AM EDT): Pt reports that he is in a stable relationship and has financial stability at this time. He and his partner wish to have a child. He is aware it can be difficult to reverse a vasectomy but wishes to proceed. Referral placed. Parkinson's disease 05/14/2020 Assessment & Plan (10/28/2023 11:47 AM EDT): Pt on sinemet and will be following with Neurology at [facility] as he is transferring care from Dr Nuñez. Assessment & Plan (04/08/2022 3:09 PM EDT): Pt on sinemet and will be following with Neurology at [facility] as he is transferring care from Dr Nuñez. Assessment & Plan (07/14/2021 9:52 AM EST): Pt on sinemet and will be following with Neurology Erin Li. Advice given about COVID-19 virus by telephone 0 11/05/2019 Assessment & Plan (04/24/2020 2:38 PM EDT): A virtual visit was used during the COVID-[address] of an in-person visit. This real-time, interactive virtual clinical encounter was conducted using videoconferencing technology from clinic or home office. The patient participated in the visit from home/temporary residence or other location as specified below. Consent for virtual care, including informing the patient that insurance will be billed, and that in-person care is available in case of emergencies or as needed otherwise, was discussed at the time of scheduling. Assessment & Plan (02/01/2020 12:00 PM EDT): A virtual visit was used during the COVID-[address] of an in-person visit. This real-time, interactive virtual clinical encounter was conducted using videoconferencing technology from clinic or home office. The patient participated in the visit from home/temporary residence or other location as specified below. Consent for virtual care, including informing the patient that insurance will be billed, and that in-person care is available in case of emergencies or as needed otherwise, was discussed at the time of scheduling. Assessment & Plan (11/12/2019 1:31 PM EDT): A virtual visit was used during the COVID-[address] of an in-person visit. This real-time 15 minuteinteractive virtual clinical encounter was conducted using telephone-only technology from clinic or home office. Consent for virtual care, including informing the patient that insurance will be billed, and that in- person care is available in case of emergencies or as needed otherwise, was discussed at the time of scheduling. Assessment & Plan (11/05/2019 12:24 PM EDT): A 30 minute virtual visit was used during the COVID-[address] of an in-person visit. This real-time interactive virtual clinical encounter was conducted using telephone-only technology from clinic or home office. Consent for virtual care, including informing the patient that insurance will be billed, and that in- person care is available in case of emergencies or as needed otherwise, was discussed at the time of scheduling. Diplopia 11/05/2019 Tremor 11/05/2019 Assessment & Plan (12/27/2019 11:00 AM EDT): ? Orthostatic tremor vs parkinsons. ? Trial with clonazepam or gabapentin. I will reach out to Dr Nuñez to discuss further Assessment & Plan (11/12/2019 1:30 PM EDT): Has Neurology appointment with Dr Nuñez pending to further evaluate. Assessment & Plan (11/05/2019 12:23 PM EDT): ? Whether pt may have TBI vs electrolyte abnormality vs poorly controlled thyroid. Pt has hx of ETOH and low sodium. He also had poorly controlled thyroid with last lab draw in August and no f/u labs. He was sent to the ED for eval, imaging and labs. Acute pain of right knee 09/25/2019 Assessment & Plan (11/05/2019 12:24 PM EDT): ? Fracture vs internal derangement vs sprain. Pt sent to the ED for eval and likely imaging, Assessment & Plan (09/25/2019 12:14 PM EST): ? Contusion vs Fracture. We'll obtain xray and consider Ortho eval prn. Pt may use ice and tylenol for discomfort. Annual physical exam 07/26/2019 Assessment & Plan (10/28/2023 12:21 PM EDT): Pt UTD with tdap, flu, pneumovax. He will get covid booster today and look into coverage for shingrix. Referred for colonoscopy. Pt declines prostate ca screening. Pt counseled on diet and exercise regimen. Routine fasting labs ordered. Assessment & Plan (07/14/2021 10:02 AM EST): Pt UTD with tdap, flu covid with booster and will have pneumovax today. Look into coverage for shingrix. Referred for colonoscopy. Pt declines prostate ca screening. Pt counseled on diet and exercise regimen. Routine fasting labs ordered. Assessment & Plan (07/26/2019 12:28 PM EST): Pt declines flu shot. UTD with tdap. Referred for colonoscopy. Pt declines prostate ca screening. Pt counseled on diet and exercise regimen. Routine fasting labs ordered. Alcohol dependence 07/26/2019 Overview (07/26/2019): chronic Assessment & Plan (07/14/2021 9:58 AM EST): Pt is not interested in medication. He has cut back significantly down to 0-8 beers a week from > 30 beers daily. Pt advised to completely refrain from drinking. Assessment & Plan (07/26/2019 12:27 PM EST): Pt is not interested in medication. He has cut back significantly down to 0-8 beers a week from > 30 beers daily. Pt advised to completely refrain from drinking. Impaired fasting blood sugar 01/12/2019 Assessment & Plan (10/28/2023 11:39 AM EDT): Elevated sugars in the past were likely not fasting.Pt's hgba1c was very reassuring returning at 4.9. We'll continue to monitor. Assessment & Plan (07/26/2019 12:25 PM EST): Elevated sugars in the past were likely not fasting.Pt's hgba1c was very reassuring returning at 4.9. We'll continue to monitor. Assessment & Plan (01/12/2019 3:14 PM EDT): Pt's hgba1c is very reassuring returning at 4.9. I suspect that the values reviewed by Dr Buchanan were not fasting. Pt reassured. Costochondritis 01/12/2019 Assessment & Plan (05/01/2019 2:00 AM EDT): Negative CXR and cardiac workup in the ED. Pt managing with diclofenac. Assessment & Plan (01/12/2019 2:37 PM EDT): Negative CXR and cardiac workup in the ED. We'll do a trial with diclofenac. RTC prn if symptoms fail to resolve. Other osteoporosis without current pathological fracture 01/03/2019 Assessment & Plan (10/28/2023 11:44 AM EDT): Pt previously followed with Dr Buchanan and had good improvement in bone density on fosamax. He struggled with compliance and switched to prolia. His last shot was 03/15 and the shot is administered q 6 months. He will schedule f/u with Dr Buchanan and is due for next BDS this month. I will order it and pt will f/u with Dr Buchanan to review and get his prolia injection. Assessment & Plan (03/11/2022 3:47 PM EDT): Patient has had good improvement of bone mineral density with Fosamax even though he has not been taking the medication more or less for the last year on a regular basis he states that because it is a weekly medication is different compared to his daily medications which he has a routine. He would like to switch over to Prolia subcutaneous injections and he does have Medicare so he is covered and we will administer the first injection today. He was again informed that he needs to stay current with calcium intake in order to prevent hypocalcemia. He is due for repeat DXA scan on 10/24/2023. Assessment & Plan (03/19/2021 3:06 PM EDT): He continues to do well with alendronate and he will continue take calcium and vitamin D supplementation. He has been scheduled for repeat DXA scan on 05/12/2021. I will see him in May 2021 to review the DXA scan. Assuming he is doing well with alendronate then we will continue the current medication if not we can consider other medications. I have renew Fosamax. He needs to do the basic panel today if at all possible because I need to see his glomerular filtration rate. This has to be in the normal reference range for him to continue with alendronate. Assessment & Plan (02/13/2020 12:37 PM EDT): This is a patient with osteoporosis who has multiple risk factors as indicated in the HPI. He continues with calcium 1 tablet daily with food vitamin D 2000 units and Fosamax once a week. Again I reminded him that Fosamax is taken fasting weekly on an empty stomach he must not eat for 30 minutes and remain upright for 30 minutes. Apparently he has not had any adverse effects so I have renew the medication. He is due for repeat DEXA scan in November 21, 2020 and have requested the studies I will see him approximately a month later in 2020. I requested a basic panel for review of glomerular filtration rate. Assessment & Plan (02/07/2019 1:05 PM EDT): The patient has osteoporosis with T6 compression fractures. I did not find any other etiology for him developing osteoporosis. Today we discussed management other than calcium and vitamin D supplementation. I discussed the use of anabolic hormones which are not contraindicated for him but he does not like needles and does not want to do daily injections. It is unclear that he will get approved for this medication anyway so this is fine. I also discussed IV bisphosphonates once yearly but again does not like the idea of getting an IV put in and having to drive to the hospital so he rather not do this. As for Prolia he will have to come to the office every 6 months. He informs me with his seizure disorder he cannot really drive and usually requires others to transport him to the doctor's office. He rather use oral bisphosphonate such as Fosamax. I will prescribe Fosamax 70 mg weekly. I informed him that this medication must be taking fasting with water and he should remain upright or standing for half an hour and not eat for half an hour after taking the medication. He is due for repeat DEXA scan on 11/21/2020. At this point what I will do is schedule him for a follow-up visit in 1 year and I will ask him to repeat urine N-telopeptide level prior to the visit in 1 year. Assessment & Plan (01/03/2019 2:31 PM EDT): This is a patient who had a T6 compression fracture which prompted DEXA scan and found that he has osteoporosis primarily of the lumbar spine. He has multiple reasons for having osteoporosis these include antiepileptic medications, tobacco use, heavy alcohol use in the past, possibly malnutrition or decreased calcium intake and vitamin D deficiency. Vitamin D levels have much been checked and it would be worthwhile to obtain them he is currently on cholecalciferol 2000 units but if he is quite deficient he may need ergocalciferol. He is currently taking calcium at least getting 500 mg of elemental calcium daily with food. He has some green leafy vegetables otherwise his diet is low in calcium intake. He states he is a lot of meat, potatoes. He does not tend to have dairy products such as milk cheese. He states that if he has cookies he may have an occasional glass of milk. In any case I suspect that his calcium dietary intake is not adequate and he may have to take 2 calcium supplementation tablets daily with food. In the meantime I will do secondary work-up for osteoporosis before recommending management. Hypothyroidism 10/16/2018 Assessment & Plan (11/16/2024 2:06 PM EDT): Due for TSH. Clinically euthyroid. Will adjust meds prn. Assessment & Plan (10/28/2023 11:39 AM EDT): Due for TSH. Clinically euthyroid. Will adjust meds prn. Assessment & Plan (07/14/2021 9:51 AM EST): Due for TSH. Clinically euthyroid. Will adjust meds prn. Assessment & Plan (03/27/2021 8:06 AM EDT): Due for TSH. Clinically euthyroid. Will adjust meds prn. Assessment & Plan (11/12/2019 1:29 PM EDT): Pt just restarted levothyroxine at 100 mcg dose. He will take I the AM on an empty stomach. We'' repeat labs in 6 weeks with prn med adjustments. Assessment & Plan (11/05/2019 12:19 PM EDT): Pt due for labs. He was subtherapeutic with last check. ? Relationship to tremor. Will check in the ED. Assessment & Plan (07/26/2019 12:24 PM EST): Pt due for f/u labs. We'll make med adjustments prn. Assessment & Plan (01/12/2019 3:13 PM EDT): Pt to take 100 mcg x 6 weeks and repeat labs. We'll make prn med adjustments. Pt counseled on the need to take daily and on an empty stomach Assessment & Plan (10/16/2018 1:39 PM EDT): Pt to be started on 100 mcg of levothyroxine with f/u lab in 6 weeks. Pt advised to take on an empty stomach and is advised of potential side effects Closed compression fracture of thoracic vertebra 09/28/2018 Assessment & Plan (05/01/2019 2:04 AM EDT): Related to osteoporosis. Pt started on alendronate, calcium and vit D and following with Dr Buchanan. Assessment & Plan (11/03/2018 6:28 PM EDT): Fracture is likely related to a fall. He has a BDS pending and is awaiting evaluation with surgery for consideration of balloon kyphoplasty. Pt may use tylenol and ibuprofen for pain. Assessment & Plan (09/28/2018 2:50 PM EST): Fracture is likely related to a fall. We will check BDS and expedite a referral to surgeon for consideration of balloon kyphoplasty. Pt may use tylenol for pain. Movement disorder 07/24/2018 Assessment & Plan (07/24/2018 3:17 PM EST): Continue Keppra Fatigue 07/24/2018 Assessment & Plan (04/08/2022 3:16 PM EDT): We'll check labs. Pt has not been fully compliant with his levothyroxine. Presentation raises ? Of possible VAIBHAV. We'll order sleep study. ? Possible relationship of parkinson's or antiseizure meds. Close f/u after labs and Neurology eval advised. Assessment & Plan (07/26/2018 3:22 PM EST): Continue efforts to mobilize Hyponatremia 07/20/2018 Assessment & Plan (07/27/2018 5:12 PM EST): Presented with severe hyponatremia, sodium 113. Likely related to chronic alcohol abuse beer potomaina Multiple contributing factors including CHF. Improving stable sodium 130 --Continue to trend labs Primary insomnia 04/04/2018 Assessment & Plan (02/01/2020 12:06 PM EDT): Pt's anxiety appears to be the primary helper/driver. He is advised to get exercise during the day such as taking a walk. He is advised to refrain from ETOH completely. He is working with his therapist and has an evaluation with [facility] pending. He will be started on SSRI and he may use benadryl or melatonin at night, We'll have close f/u and consider alternative regimens prn. Assessment & Plan (04/04/2018 9:13 AM EDT): Pt's anxiety appears to be the primary helper/driver. He is advised to get exercise during the day such as taking a walk. He is advised to refrain from ETOH completely. He has an evaluation with [facility] pending. In the interim we will rx a course of lorazepam. He is counseled on sedating side effects and advised not to drink etoh. Depression with anxiety 04/04/2018 Assessment & Plan (11/16/2024 2:07 PM EDT): Will refer to behavioral health for med consult. Pt with seizure d/o so will wish to exercise caution with meds. Pt advised to establish with a therapist as well. Assessment & Plan (07/14/2021 9:57 AM EST): Pt stable on fluoxetine.He is no longer working with his therapist and have close f/u here. We'll consider referral to psychiatry Dr Lauren pierre for med consult prn as well. Assessment & Plan (02/01/2020 12:07 PM EDT): Pt to be started on fluoxetine. He is counseled on potential side effects and delayed onset of action. He will continue working with his therapist and have close f/u here. We'll consider referral to psychiatry Dr Lauren pierre for med consult as well if his pending visit with [facility] is not scheduled in a reasonable time frame. Assessment & Plan (07/26/2019 12:01 PM EST): Following with therapist at [facility] and waiting to see psychiatrist. Assessment & Plan (04/04/2018 9:14 AM EDT): Intake with [facility] pending. Pt given short course of lorazepam in the interim. Chest wall pain 01/02/2018 Assessment & Plan (02/23/2019 1:45 PM EDT): Negative CXR and cardiac workup in the ED. We'll continue with diclofenac. I suspect he may have aggravated the issue inadvertently. RTC prn if symptoms fail to resolve and we'll consider repeating imaging. Assessment & Plan (01/02/2018 1:33 PM EDT): Workup in ED was unremarkable. Likely related to anxiety. Further eval prn if symptoms return. Chronic pain of both knees 11/10/2017 Assessment & Plan (05/01/2019 2:03 AM EDT): Xrays wnl. pt has worked with P.T with limited benefit. Assessment & Plan (01/02/2018 1:32 PM EDT): Xrays wnl. pt referred to [facility]. Consider injections and Ortho referral prn. Assessment & Plan (11/10/2017 8:17 AM EDT): I suspect OA. We'll obtain xrays and pt referred to P.T. Consider injections and Ortho referral prn. Acute gastric ulcer with hemorrhage 11/08/2017 Assessment & Plan (11/08/2017 9:20 AM EDT): Pt on pantoprazole BID and will be following with Dr Pastrana next month. Pt advised to avoid etoh, tobacco and nsaids. Disorder of right rotator cuff 11/08/2017 Assessment & Plan (03/27/2021 8:08 AM EDT): PT offered minimal relief. We will try injection today. If no relief noted we'll refer to Ortho. Patient informed of potential risks and benefits associated with the procedure including pain, bleeding, infection, bleaching of skin and steroid flare. Patient verbally agrees to proceed. The right shoulder is cleaned with betadine x 3 and alcohol, anesthetized with ethyl chloride a 22 gauge 1&1/2 inch needle was used to inject 5ml of lidocaine and 40 mg of kenalog from the posterior aspect into the joint space. Patient tolerated the procedure well with no complaints. Any signs of infection or complications and pt is instructed to follow up. Assessment & Plan (04/24/2020 2:37 PM EDT): Referral back to PT. We'll consider injection or referral to ortho prn. Pt to continue with HEP as well. Assessment & Plan (09/25/2019 12:13 PM EST): Referral back to [facility] for consideration of injection. Pt to continue with HEP as well. Assessment & Plan (11/10/2017 8:16 AM EDT): Exam is suggestive of rotator cuff tendonitis vs tear. Pt referred to P.T. And we'll consider Ortho eval prn. Melena 10/27/2017 Assessment & Plan (10/27/2017 4:07 PM EDT): As above. Stool is heme positive. Assessment & Plan (10/27/2017 1:36 PM EDT): Pt with likely GI ulcer from NSAID and etoh. He has been advised to d/c both. He will be started on PPI and have a GI eval. Labs to evaluate for anemia. Dizziness 10/27/2017 Assessment & Plan (10/27/2017 4:09 PM EDT): Improving with IV fluids and oxygen. Assessment & Plan (10/27/2017 1:35 PM EDT): Pt with ? GI ulcer and anemia. As we were attempting to have pt go to the lab for a draw he became dizzy and nearly passed out. EMS was called and quickly arrived. He will likely require EGD and ? Transfusion. GI bleed 10/27/2017 Assessment & Plan (10/27/2017 4:08 PM EDT): Presentation with several episodes of melena over the past 2 days, now status post endoscopy with Dr Pastrana which showed multiple gastric ulcers with small amount of bleeding. Per Dr Pastrana, significant ulcer volume, at risk for bleeding. - Admitted to medicine for overnight observation - Clear liquid diet - IV PPI given 80 mg today, then 40 mg twice a day starting tomorrow - Monitor H&H every 6 hours. If stable in a.m. Will advance diet and change PPI to oral. Anxiety disorder 10/10/2017 Assessment & Plan (11/03/2018 6:27 PM EDT): Pt advised to consider working with therapist. Not currently interested due to transportation issues and financial concerns. Will consider referral to psychiatrist Dr Aguilar as well. Assessment & Plan (01/02/2018 1:32 PM EDT): Pt advised to consider working with therapist. Not currently interested due to transportation issues and financial concerns. Will consider referral to psychiatrist Dr Aguilar as well. Assessment & Plan (10/27/2017 4:10 PM EDT): Stable. Patient calm. Lorazepam PRN. Assessment & Plan (10/10/2017 1:37 AM EDT): Pt advised to consider working with therapist. Not currently interested due to transportation issues and financial concerns. Will consider referral to psychiatrist Dr Aguilar as well. HTN (hypertension) 10/10/2017 Assessment & Plan (11/16/2024 2:05 PM EDT): Not an active issue. Previously consumed 30 + beers daily. Lifestyle changes have likely resolved the issue. Due for labs. Assessment & Plan (10/28/2023 11:37 AM EDT): Not an active issue. Previously consumed 30 + beers daily. Lifestyle changes have likely resolved the issue. Due for labs. Assessment & Plan (07/14/2021 9:47 AM EST): Not an active issue. Previously consumed 30 + beers daily. Lifestyle changes have likely resolved the issue. Due for labs. Assessment & Plan (07/26/2019 11:47 AM EST): Not an active issue. Previously consumed 30 + beers daily. Lifestyle changes have likely resolved the issue. Tobacco abuse 10/10/2017 Assessment & Plan (10/28/2023 11:52 AM EDT): He has used nicotine patch in the past and would like to try again.Wellbutrin and varencicline contraindicated due to seizure d/o. Assessment & Plan (07/14/2021 9:56 AM EST): He has used nicotine patch in the past and would like to try again.Wellbutrin contraindicated due to seizure d/o. Assessment & Plan (07/26/2019 12:02 PM EST): Pt is down to a few cigarettes and is hoping to quit prior to moving into his own place. He has used nicotine patch in the past. He is not interested in additional medication at this time. Assessment & Plan (10/27/2017 4:10 PM EDT): Patient now down to several cigarettes daily. Requesting a low-dose patch. Seizure disorder 09/23/2017 Overview (01/02/2018): Follows with Dr Nuñez Assessment & Plan (11/16/2024 2:07 PM EDT): No recent seizures. Follows with [facility]. Pt previously followed with Dr Nuñez and given a dx of epilepsy. Currently on Keppra and lamictal. He is no longer driving and exercising caution with ladders etc. Assessment & Plan (10/28/2023 12:21 PM EDT): No recent seizures. Transferring care to [facility]. Pt previously followed with Dr Nuñez and given a dx of epilepsy. Currently on Keppra and lamictal. He is no longer driving and exercising caution with ladders etc. Assessment & Plan (04/08/2022 3:14 PM EDT): No recent seizures. Transferring care to [facility]. Pt previously followed with Dr Nuñez and given a dx of epilepsy. Currently on Keppra and lamictal. He is no longer driving and exercising caution with ladders etc. ? Whether medication could be contributing to fatigue? Assessment & Plan (07/14/2021 9:51 AM EST): No seizures this year. Transferring care to [facility].Pt previously followed with Dr Nuñez and given a dx of epilepsy. Currently on Keppra and lamictal. He is no longer driving and exercising caution with ladders etc.Labs due and will be drawn. Assessment & Plan (11/12/2019 1:30 PM EDT): Pt following with Dr Nuñez and given a dx of epilepsy. Currently on Keppra and lamictal. He is no longer driving and exercising caution with ladders etc. Assessment & Plan (11/05/2019 12:20 PM EDT): Pt following with Dr Nuñez and given a dx of epilepsy. Currently on Keppra and lamictal. He is no longer driving and exercising caution with ladders etc. Dr Nuñez aware of recent episode and will have outpt f/u with further med adjustments prn. Assessment & Plan (09/25/2019 12:16 PM EST): Pt following with Dr Nuñez and given a dx of epilepsy. Currently on Keppra and lamictal. He is no longer driving and exercising caution with ladders etc. Recent seizure activity while compliant with meds and labs in therapeutic range. Pt to follow with Dr Nuñez for further eval and med adjustment. Assessment & Plan (07/26/2019 12:26 PM EST): Pt following with Dr Nuñez and given a dx of epilepsy. Currently on Keppra and lamictal. He is no longer driving and exercising caution with ladders etc. We will exercise caution with potential med changes so as not to increase risk for seizure. Pt's disability eval is pending. Recent seizure activity while compliant with meds and labs in therapeutic range. Pt to follow with Dr Nuñez for further eval and med adjustment. Assessment & Plan (05/01/2019 2:02 AM EDT): Pt following with Dr Nuñez and given a dx of epilepsy. Currently on Keppra and lamictal. He is no longer driving and exercising caution with ladders etc. We will exercise caution with potential med changes so as not to increase risk for seizure. Pt's disability paperwork completed today. Please see attached. Agree with disability due to above conditions. See scanned disability documents for additional information. Assessment & Plan (11/03/2018 6:31 PM EDT): Pt following with Dr Nuñez and given a dx of epilepsy. Currently on Keppra. He is no longer driving and exercising caution with ladders etc. We will exercise caution with potential med changes so as not to increase risk for seizure. Pt's disability paperwork completed today. Please see attached. Agree with disability due to above conditions. Assessment & Plan (04/04/2018 9:14 AM EDT): Pt following with Dr Nuñez and given a dx of epilepsy. Currently on Keppra. He is no longer driving and exercising caution with ladders etc. We will exercise caution with potential med changes so as not to increase risk for seizure. Assessment & Plan (01/02/2018 1:40 PM EDT): Pt following with Dr Nuñez and given a dx of epilepsy. Currently on Keppra. He is no longer driving and exercising caution with ladders etc. He is being further evaluated due to some concerns of possible development of MS as well. Disability paperwork completed. See attached Assessment & Plan (11/10/2017 8:14 AM EDT): Pt following with Dr Nuñez and given a dx of epilepsy. Currently on Keppra. He is no longer driving and exercising caution with ladders etc. He has an EEG pending. Some concerns of possible development of MS as well and an MRI was ordered by Dr Nuñez. Assessment & Plan (10/27/2017 4:08 PM EDT): Continue Keppra 1250 mg twice a day. This was taken this morning before his PCP appointment. Last seizure approximately one month ago when he went into alcohol detox. Assessment & Plan (10/10/2017 1:35 AM EDT): Stable on Keppra. Pt follows with Erin Li. He is advised to refrain from ETOH. Assessment & Plan (09/24/2017 3:31 PM EST): No acute issues, his usual Keppra ordered Multiple gastric ulcers Overview (10/27/2017): endoscopy with Dr Pastrana 10/27/17 Assessment & Plan (10/27/2017 4:08 PM EDT): As above Resolved Problems Problem Noted Date Diagnosed Date Resolved Date Alcohol withdrawal syndrome 10/10/2017 07/28/2018 Overview (10/10/2017): chronic Assessment & Plan (07/26/2018 3:22 PM EST): Completing phenobarbital protocol, thiamine, folate, MVI Assessment & Plan (11/10/2017 8:15 AM EDT): Drinking infrequently primarily as he does not have the money for ETOH. He is advised to refrain altogether. Assessment & Plan (10/27/2017 4:09 PM EDT): Recent detox 4-6 weeks ago. No alcohol since that time. Patient reports that his social life is difficult as his friends often come over to drink beer. - Social work consult Assessment & Plan (10/27/2017 1:34 PM EDT): Pt denies that he is currently drinking and states he intends to refrain from drinking. Assessment & Plan (10/10/2017 1:39 AM EDT): Pt insists he is not drinking heavily and can manage at present. He is not currently interested in AA, counseling or meds. Diarrhea 09/23/2017 09/25/2017 Assessment & Plan (09/24/2017 3:33 PM EST): Most likely related to WD , resolving, C. difficile negative Hyponatremia 09/22/2017 09/25/2017 Assessment & Plan (09/24/2017 3:32 PM EST): Improved, probably due to alcohol abuse Encounters Date Type Department Care Team Description 05/24/2025 Telephone [facility] [address] [place] [address] Robert Loredo, DO same day cancel 05/17/2025 Telephone [facility] [address] [place] [address] Robert Loredo, DO Triage (Green+Back and hip pain) 05/06/2025 Refill [facility] [address] [place] [address] Robert Loredo, DO Medication Refill 04/26/2025 Orders Only [facility] [address] [place] [address] Provider, MD Sabi from Last 3 Months Immunizations Immunization Administration Dates Next Due COVID-19 (Pre-05/16) Tigist Vaccine, [id number], P F 02/22/2021 COVID-19 Pfizer Comirnaty Vaccine 12+ 10/28/2023 Influenza Quadrivalent MDCK Preservative Free IM 05/21/2022 Influenza Quadrivalent Preservative Free IM 11/0 09/2020,04/12/2020 Influenza, Unspecified Formulation 04/12/2020, Pneumococcal conjugate, unspecified formulation 05/15/2015 Pneumococcal polysaccharide PPSV23 07/14/2021 Tdap 10/18/2016,05/12/2001 Family History Medical History Relation Comments Arthritis Father Bone cancer Father Hypertension Father Asthma Mother Emphysema Mother Heart disease Mother Hypertension Mother Kidney disease Mother Relation Status Comments Father Alive Mother Social History Tobacco Use Types Packs/Day Years Used Date Smoking Tobacco: Every Day Cigarettes 0.5 30 Smokeless Tobacco: Never Tobacco Cessation:Ready to Q uit: Yes; Counseling Given: Not Answered Alcohol Use Standard Drinks/Week Comments Yes 2 [...] file Not on file Not on file Last Filed Vital Signs Vital Sign Reading Time Taken Comments Blood Pressure 130/70 11/16/2024 1:06 PM EDT Pulse 84 11/16/2024 1:06 PM EDT Temperature 36.4 C (97.6 F) 11/16/2024 1:06 PM EDT Respiratory Rate 20 11/16/2024 1:06 PM EDT Oxygen Saturation 97% 11/16/2024 1:06 PM EDT Inhaled Oxygen Concentration 24% 07/26/2018 1 0:55 AM EST Weight 73.5 kg (162 lb) 11/16/2024 1:06 PM EDT Height 174.8 cm (5' 8.82 ) 10/28/2023 11:18 AM E DT Body Mass Index 24.05 10/28/2023 11:18 AM EDT Plan of Treatment Health Maintenance Due Date Last Done Comments SMOKING Hx and SMOKELESS TOBACCO SCREENING 02/18/1981 COLOGUARD 02/18/2013 COLONOSCOPY 02/18/2013 COLORECTAL CANCER SCREENING 02/18/2013 FIT TEST 02/18/2013 FOBT 02/18/2013 SIGMOIDOSCOPY 02/18/2013 VIRTUAL COLONOSCOPY 02/18/2013 ZOSTER VACCINES (1 of 2) 02/18/2018 DEPRESSION SCREENING 07/14/2022 07/14/2021, 07/14/20 21 PNEUMOCOCCAL VACCINES (50+ years) (2 of 2 - PCV) 07/14/2022 07/14/2021 TSH LEVEL 04/08/2023 04/08/2022, 06/25, 11/05/2019, Additional history exists INFLUENZA VACCINE (#1) 2025 , 05/21/2022, 05/27/2021, Additional history exists COVID-19 VACCINE (2024- season) 2025 10/28/2023, 05/21/2022, 06/02/2021, Additional history exists BLOOD PRESSURE 05/18/2025 11/16/2024 LIPID PANEL 07/14/2026 07/14/2021, 09/14/2016 Adult Td,Tdap Booster 10/18/2026 10/18/2016, 001 RSV VACCINE (1 - 1-dose 75+ series) 02/18/2043 HEPATITIS C SCREENING Completed 10/18/2016 HIV ONE-TIME SCREENING (18-65 YEARS) Completed 07/21/2018 HEPATITIS A VACCINES Aged Out No long er eligible based on patient's age to complete this topic HIB VACCINES Aged Out No longer eligi ble based on patient's age to complete this topic IPV VACCINES Aged Out No longer eligi ble based on patient's age to complete this topic MENINGOCOCCAL VACCINES (ACWY) Aged Out No longer eligible based on patient's age to complete this topic MENINGOCOCCAL VACCINES (B) Aged Out N o longer eligible based on patient's age to complete this topic Medical Devices Not on file Procedures Procedure Name Priority Date/Time Associated Diagnosis Comments OUTSIDE IMAGING Routine 04/25/2025 8:24 AM EDT TSH WITH REFLEX Routine 04/08/2022 3:10 PM EDT Hypothyroidism, unspecified type LIPID PANEL Routine 07/14/2021 10:23 AM EST Annual physical exam from Last 3 Months or Most Recently Relevant to Health Maintenance Results * Outside Imaging Report Only (04/25/2025 8:24 AM EDT) us Historical Provider MD RODRIGUEZ XR CHEST Edited Re sult - Final * (ABNORMAL) TSH with reflex (04/08/2022 3:10 PM EDT) TSH 9.24(H) 0.27 - 4.20 uIU/mL [facility] Blood 04/08/2022 3:10 PM EDT 04/08/2022 3:14 PM EDT Robert Loredo DO LAB BLOOD BKR ORDERABLES Final R esult [address] [id number] * (ABNORMAL) Lipid panel (07/14/2021 10:23 AM EST) HDL 90 mg/dL [facility] Comment: Interpretation <40 mg/dL: Low HDL cholesterol (major risk factor for CHD) Greater than or equal to 60 mg/dL: High HDL cholesterol ( negative risk factor for CHD) HDL - cholesterol is affected by a number of factors, e.g. smoking, excerise, hormones, sex and age. CHOLESTEROL 141 0 - 240 mg/dL [facility] TRIGLYCERIDES 49 30 - 160 mg/dL [facility] LDL 41(L) 50 - 129 mg/dL [facility] Comment: LDL levels in terms of risk for coronary heart disease: <100 mg/dL: Optimal 100-129 mg/dL: Near or above optimal 130-159 mg/dL: Borderline high 160-189 mg/dL: High >190 mg/dL: Very High CARDIAC RISK RATIO 1.6(L) 3.4 - 5.0 C [facility] Blood 07/14/2021 10:2 3 AM EST 07/14/2021 10:43 AM EST us Robert Loredo DO LAB BLOOD BKR ORDERABLES Final R esult [facility] [address] [place], [place] [id number] from Last 3 Months or Most Recently Relevant to Health Maintenance Insurance MEDICARE PART A & B Member Subscriber Plan / Payer (Ef fective 2020-Present) Name:Carlos Wiggins Member ID:[id number] Relation to Subscriber:Self Name:Carlos Wiggins Subscriber ID:[id number] Payer ID:[id number] Group ID:Not on file Type:Medicare Address: [facility] [employer] [facility] [address] [facility] [place] [address] UNITED [employer] MEDICARE REPLACEMENT MEDICARE PART A & B CARE MEDICARE REPLACEMENT Member Subscriber Plan / Payer (Ef fective 2024-Present) Name:Rosalie Carlos Relation to Subscriber:Self Name:Enrique Wigginsale Payer ID:[id number] (NAIC) Group ID:[id number] Type:Medicare Address: [place] [phone] [place] [address] MEDICARE PART A & B CARE MEDICARE REPLACEMENT [address] [place] [address] MEDICARE PART A & B MEDICARE RE[address] [place] [phone] MEDICARE PART A & B MEDICARE RE[address] [place] [address] MEDICARE PART A & B UNITED ONE [employer] MEDICARE REPLACEMENT Member Subscriber Plan / Payer (Ef fective 2024-) Name:Carlos Wiggins Relation to Subscriber:Self Name:Carlos Wiggins Payer ID:[id number] (NAIC) Group ID:[id number] Type:Medicare Address: [place] [phone] [place] [address] MEDICARE PART A & B [address] [place] [address] MEDICARE PART A & B [address] [place] [address] MEDICARE PART A & B Advance Directives For more information, please contact: [phone] (9AM - 5PM [facility], Tuesday-Tuesday) Documents on File Type Date Recorded Patient Intake Man Expl anation Healthcare Proxy 07/31/2018 12:19 PM * Full Code (Presumed) (Latest Code Status on File) Date Activated Date Inactivated Comments 07/20/2018 8:08 PM 07/28/2018 2:35 PM * Full Code (Confirmed) Date Activated Date Inactivated Comments 10/27/2017 5:45 PM 10/28/2017 3:54 PM Question Answer Comments Code Discussion Comments: patient * Full Code (Confirmed) Date Activated Date Inactivated Comments 09/22/2017 10:37 PM 09/25/2017 2:24 PM Question Answer Comments Code Discussion Comments: patient Healthcare Agents on File Name Relationship Healthcare Agent Relationship Communication Halie Clark Sister .Primary Health Care Agent (Proxy form on file) Care Teams Tin Roofer Relationship Specialty Start Date End Date Robert Loredo DO [address] [place] [id number] [email or web address] PCP - General 07/28/17 Additional Source Comments The information contained in this document represents components of the legal health record. It is not the complete legal health record.[facility]
--- OUTSIDE RECORDS SUMMARY | 2025-06-25 00:26 | XMS_ITS | Encounter Summary ---
Author Organization [facility] Address [address] [place] [phone] Phone Care Team Providers Care Baker Doughnut Name Role Phone Robert Loredo DO Primary Care Provider [phone] Robert Loredo DO Unavailable Alejandra Reveles RN Unavailable [email or web address] Robert Loredo DO Unavailable Reason for Referral * MRI/CAT Scan - Closed Specialty Diagnoses / Procedures Referred By Libertad ellis Referred To Contact Radiology Diagnoses Compression fracture of T6 vertebra . Procedures MRI Thoracic Spine Dru Nuñez MD Phone: tel: fax: [email or web address] Referral ID Status Reason Start Date Expiration Date Visits Re quested Visits Authorized [id number] Closed 12/05/2018 01/05/2019 1 1 Encounter Details Date Type Department Care Team (Latest Contact Info) Description 11/24/2018 Transcribe Orders [facility] Department [address] [place] [phone] Dru Nuñez MD [address] [facility], [address] [place] [address] [email or web address] Compression fracture of T6 vertebra (Primary Dx) Social History Tobacco Use Types Packs/Day Years Used Date Smoking Tobacco: Every Day Cigarettes 1 30 Smokeless Tobacco: Never Alcohol Use Standard Drinks/Week Comments Yes 0 (1 standard drink = 0.6 oz pur e alcohol) daily several 12 packs of beer Child or Family Care Answer Date Record ed Do you have problems with on e of the following making it difficult for you to work, study, or receive health care? No 10/16/2018 Education Answer Date Recorded Are you interested in help w ith more adult education (for example, completing high school, GED, job training, learning the Czech language, technical skills, or developing parenting skills)? I choose not to answer 10/16/2018 Are you concerned about learning? Not on file 10/16/2018 Not on file 10/16/2018 Not on file 10/16/2018 Food Answer Date Recorded Within the past 6 months we worried whether our food would run out before we got money to buy more. Sometimes True 019 Food didn't last Not on file 10/16/2018 Paying for Meds Answer Date Recorded Do you have trouble paying for medicines? Yes 10/16/2018 Paying Utility Bills Answer Date Record ed Do you have trouble paying your heating or elect ricity bill? No 10/16/2018 Transportation Answer Date Recorded Has the lack of transportati on kept you from medical appointments or from getting medications? Yes 10/16/2018 Sex and Gender Information Value Date Recorded [...] documented as of this encounter Results * MRI THORACIC SPINE (NEURO) WITHOUT CONTRAST (01/05/2019 2:01 PM EDT) Anatomical Region Laterality Modality T-spine Magnetic Resonan ce 01/05/2019 2:34 PM EDT Impressions 01/05/2019 3:20 PM EDT 1. Severe subacute compression deformity of T6 vertebral body with small retropulsed fracture fragment that results in mild local canal stenosis. 2. Chronic mild compression deformities of T9 and T11 vertebral bodies. 3. Mild bilateral neuroforaminal stenosis at T6-T7, T9-T10 and T10-T11. POS - [id number] Narrative 01/05/2019 3:20 PM EDT EXAM: MRI THORACIC SPINE WITHOUT INTRAVENOUS CONTRAST COMPARISON: Chest radiograph on October 22, 2018. Lumbar spine radiograph on September 04, 2018. TECHNIQUE: MRI of the thoracic spine TECHNIQUE: Exam performed on a 1.5 Suad high-field MRI scanner. Multiple sequences were obtained without administration of intravenous contrast using standard department protocols. FINDINGS: ALIGNMENT: Anatomic alignment is maintained. No anterior or posterior subluxations. VERTEBRAL BODIES: Severe compression deformity of T6 vertebral body with small retropulsed fracture fragment, associated with minimal marrow edema represents subacute fracture. Chronic mild compression fracture deformities of T9 and T11 vertebral bodies. Bone marrow signal pattern is within normal limits. INTERVERTEBRAL DISCS: Desiccation changes involving all included discs. No significant loss of disc height. SPINAL CORD: Included spinal cord has normal caliber and signal characteristics. Level by level analysis yields the following: Canal stenosis: Mild canal stenosis at the level of the retropulsed fracture fragment at T6 level. Neuroforamina: Mild bilateral neuroforaminal stenosis at T6-T7. Tiny bulging discs at T9-T10 and T10-T11 results in mild bilateral neuroforaminal stenosis at those levels. OTHERS: Posterior paraspinal soft tissues are unremarkable. Procedure Note Magdi Baker MD - 01/05/2019 EXAM: MRI THORACIC SPINE WITHOUT INTRAVENOUS CONTRAST COMPARISON: Chest radiograph on October 22, 2018. Lumbar spine radiographon September 04, 2018. TECHNIQUE: MRI of the thoracic spine TECHNIQUE: Exam performed on a 1.5 Suad high-field MRI scanner. Multiplesequences were obtained without administration of intravenous contrastusing standard department protocols. FINDINGS: ALIGNMENT: Anatomic alignment is maintained. No anterior or posteriorsubluxations. VERTEBRAL BODIES: Severe compression deformity of T6 vertebral body withsmall retropulsed fracture fragment, associated with minimal marrow edemarepresents subacute fracture. Chronic mild compression fracturedeformities of T9 and T11 vertebral bodies. Bone marrow signal pattern iswithin normal limits. INTERVERTEBRAL DISCS: Desiccation changes involving all included discs. Nosignificant loss of disc height. SPINAL CORD: Included spinal cord has normal caliber and signalcharacteristics. Level by level analysis yields the following: Canal stenosis: Mild canal stenosis at the level of the retropulsedfracture fragment at T6 level. Neuroforamina: Mild bilateral neuroforaminal stenosis at T6-T7. Tinybulging discs at T9-T10 and T10-T11 results in mild bilateralneuroforaminal stenosis at those levels. OTHERS: Posterior paraspinal soft tissues are unremarkable. IMPRESSION: 1. Severe subacute compression deformity of T6 vertebral body with smallretropulsed fracture fragment that results in mild local canal stenosis. 2. Chronic mild compression deformities of T9 and T11 vertebral bodies. 3. Mild bilateral neuroforaminal stenosis at T6-T7, T9-T10 and T10-T11. POS - [id number] Dru Nuñez MD IMG MR XSPECIALTY Final Resu lt documented in this encounter Visit Diagnoses Diagnosis Compression fracture of T6 vertebra- Primary Compression fracture of T6 vertebra documented in this encounter Care Teams Baker Doughnut Relationship Specialty Start Date End Date Robert Loredo DO [address] [place] [address] PCP - General 07/28/17 Robert Loredo DO [address] [place] [address] Insurance Assigned Provider 03/25/18 Alejandra Reveles RN [address] [place] [address] [email or web address] [employer] Service Engineer 01/21/2002/05 Robert Loredo DO [address] [place] [address] [email or web address] Insurance Assigned Provider 10/30/22 documented as of this encounter Additional Source Comments The information contained in this document represents components of the legal health record. It is not the complete legal health record.[facility]
--- OUTSIDE RECORDS SUMMARY | 2025-06-25 00:26 | XMS_ITS | Encounter Summary ---
Author Organization [facility] Address [address] [place] [address] Phone Care Team Providers Care Outer Diameter Grinder Tool Name Role Phone Robert Loredo DO Primary Care Provider [phone] Robert Loredo DO Unavailable Alejandra Reevles RN Unavailable [email or web address] Robert Loredo DO Unavailable Encounter Details Date Type Department Care Team (Late st Contact Info) Description 08/31/2018 Procedure Pass [address] [address] Social History Tobacco Use Types Packs/Day Years [...] on filedocumented in this encounter Care Teams Outer Diameter Grinder Tool Relationship Specialty Start Date End Date Robert Loredo DO [address] [place] [address] [email or web address] PCP - General 07/28/17 Robert Loredo DO [address] [place] [address] Insurance Assigned Provider 03/25/18 Alejandra Reveles, DEBBY [address] [place] [address] [email or web address] [facility] Offset Machine Operator 01/21/2002/05 Robert Loredo DO [address] [place] [address] Insurance Assigned Provider 10/30/22 documented as of this encounter Additional Source Comments The information contained in this document represents components of the legal health record. It is not the complete legal health record.[facility]
--- OUTSIDE RECORDS SUMMARY | 2025-06-25 00:27 | XMS_ITS | Encounter Summary ---
Author Organization [facility] Address [address] [place] [address] Phone Care Team Providers Care International Bank Manager Name Role Phone Robert Loredo DO Primary Care Provider [phone] Robert Loredo DO Unavailable Alejandra Reveles RN Unavailable [email or web address] Robert Loredo DO Unavailable Encounter Details Date Type Department Care Team (Late st Contact Info) Description 11/24/2018 Procedure Pass [facility], [address] [address] Social History Tobacco Use Types Packs/Day Years [...] high school, GED, job training, learning the Venezuelan language, technical skills, or developing parenting skills)? [...] on filedocumented in this encounter Care Teams International Bank Manager Relationship Specialty Start Date End Date Robert Loredo DO [address] [place] [address] [email or web address] PCP - General 07/28/17 Robert Loredo DO [address] [place] [address] [email or web address] Insurance Assigned Provider 03/25/18 Alejandra Reveles RN [address] [place] [address] [facility] Outside Plant Engineer 01/21/2002/05 Robert Loredo DO [address] [place] [address] [email or web address] Insurance Assigned Provider 10/30/22 documented as of this encounter Additional Source Comments The information contained in this document represents components of the legal health record. It is not the complete legal health record.[facility]
--- OUTSIDE RECORDS SUMMARY | 2025-06-25 00:27 | XMS_ITS | Encounter Summary ---
Author Organization [facility] Address [address] [place] [address] [place] [address] Phone Care Team Providers Care Java Xml Developer Name Role Phone Robert Loredo DO Primary Care Provider [phone] Robert Loredo DO Unavailable Alejandra Reveles RN Unavailable [email or web address] Robert Loredo DO Unavailable Encounter Details Date Type Department Care Team (Latest Contact Info) Description 04/04/2019 Transcribe Orders [address] [place] [address] Dru Nuñez MD [address] [place] [address], [address] [place], [place] [id number] [email or web address] Seizure (Primary Dx) Social History Tobacco Use Types [...] high school, GED, job training, learning the Slovenian language, technical skills, or developing parenting skills)? [...] documented as of this encounter Results * Lamotrigine level (04/04/2019 12:40 PM EDT) LAMOTRIGINE 4.3 4.0 - 18.0 mg/L [facility] Blood 04/04/2019 12:4 0 PM EDT 04/04/2019 12:44 PM EDT us Dru Nuñez MD LAB BLOOD BKR ORDERABLES Fin al Result [facility] [address] [place] [address] documented in this encounter Visit Diagnoses Diagnosis Seizure- Primary Other convulsions documented in this encounter Care Teams Java Xml Developer Relationship Specialty Start Date End Date Robert Loredo DO [address] [facility] [place] [address] [email or web address] PCP - General 07/28/17 Robert Loredo DO [address] [place] [address] [email or web address] Insurance Assigned Provider 03/25/18 Alejandra Reveles RN [address] [place] [address] [email or web address] 01/21/2002/05 Robert Loredo DO [address] [place] [address] [email or web address] Insurance Assigned Provider 10/30/22 documented as of this encounter Additional Source Comments The information contained in this document represents components of the legal health record. It is not the complete legal health record.[facility]
--- OUTSIDE RECORDS SUMMARY | 2025-06-25 00:27 | XMS_ITS | Encounter Summary ---
Author Organization [facility] Address [address] [place] [address] Phone Care Team Providers Care Glaze Mixer Name Role Phone Robert Loredo DO Primary Care Provider [phone] Robert Loredo DO Unavailable Alejandra Reveles RN Unavailable [email or web address] Robert Loredo DO Unavailable Encounter Details Date Type Department Care Team (Latest Contact Info) Description 11/14/2017 Transcribe Orders [facility] [address] [place] [address] Dru Nuñez MD [address] [place] [address], [address] [place], [place] [id number] [email or web address] Numbness (Primary Dx) Social History Tobacco Use Types [...] documented as of this encounter Results * Vitamin B12 (11/14/2017 12:12 PM EDT) VITAMIN B12 827 232 - 1,245 pg/mL [facility] Comment:The reference range had been changed on November 04, 2017 from 243 - 894pg/mL to 232 - 1245 pg/mL. Blood 11/14/2017 12:1 2 PM EDT 11/14/2017 12:17 PM EDT us Dru Nuñez MD LAB BLOOD BKR ORDERABLES Fin al Result Performing Organization Address City/[facility]/ZIP Co de Phone Number [facility] [address] [place] [address] * Ceruloplasmin (11/14/2017 12:12 PM EDT) CERULOPLASMIN,S 30.0 19.0 - 31.0 mg/dL [facility] DPT OF LAB MED AND PAT+ Blood 11/14/2017 12:1 2 PM EDT 11/14/2017 12:17 PM EDT us Dru Nuñez MD LAB BLOOD ORDERABLES Final R esult [facility] DPT OF LAB MED AND PAT+ [address] [place] [address] * (ABNORMAL) Monoclonal protein study, serum (11/14/2017 12:12 PM EDT) TOTAL PROTEIN 7.3 6.3 - 7.9 g/dL [facility] DPT OF LAB MED AND PAT+ ALBUMIN 3.5 3.4 - 4.7 g/dL [facility] DPT OF LAB MED AND PAT+ ALPHA-1 GLOBULIN 0.3 0.1 - 0.3 g/dL [facility] DPT OF LAB MED AND PAT+ ALPHA-2 GLOBULIN 1.3(H) 0.6 - 1.0 g/dL [facility] DPT OF LAB MED AND PAT+ BETA-GLOBULIN 1.0 0.7 - 1.2 g/dL [facility] DPT OF LAB MED AND PAT+ GAMMA-GLOBULIN 1.3 0.6 - 1.6 g/dL [facility] DPT OF LAB MED AND PAT+ A/G RATIO 0.91 [facility] DPT OF LAB MED AND PAT+ M SPIKE Test component not applicable or not reported. not reported [facility] DPT OF LAB MED AND PAT+ M SPIKE Test component not applicable or not reported. not reported [facility] DPT OF LAB MED AND PAT+ IMPRESSION SEE NOTE [facility] DPT OF LAB MED AND PAT+ Comment: (NOTE) No apparent monoclonal protein on serum electrophoresis. See Immunofixation. IMMUNOFIXATION No monoclonal protein detected. [facility] DPT OF LAB MED AND PAT+ Blood 11/14/2017 12:1 2 PM EDT 11/14/2017 12:17 PM EDT us Dru Nuñez MD LAB BLOOD BKR ORDERABLES Fin al Result [facility] DPT OF LAB MED AND PAT+ [address] [place] [address] * (ABNORMAL) TSH (11/14/2017 12:12 PM EDT) TSH 4.88(H) 0.27 - 4.20 uIU/mL [facility] Blood 11/14/2017 12:1 2 PM EDT 11/14/2017 12:17 PM EDT Dru Nuñez MD LAB BLOOD BKR ORDERABLES Fin al Result [facility] [address] [place] [address] * (ABNORMAL) Antinuclear antibody (GIOVANNI) (11/14/2017 12:12 PM EDT) GIOVANNI SCREEN ON HEP 2 Positive(A ) Negative [facility] Comment:An GIOVANNI Titer has bee n reflexed. The results will follow. Blood 11/14/2017 12:1 2 PM EDT 11/14/2017 12:17 PM EDT us Dru Nuñez MD LAB BLOOD BKR ORDERABLES Fin al Result [facility] [address] [place] [address] documented in this encounter Visit Diagnoses Diagnosis Numbness- Primary Disturbance of skin sensation documented in this encounter Care Teams Glaze Mixer Relationship Specialty Start Date End Date Robert Loredo DO [address] [place] [address] [email or web address] PCP - General 07/28/17 Robert Loredo DO [address] [place] [address] Insurance Assigned Provider 03/25/18 Alejandra Reveles RN [address] [place] [address] [email or web address] [facility] Adult Educator 01/21/2002/05 Robert Loredo DO [address] [place] [address] [email or web address] Insurance Assigned Provider 10/30/22 documented as of this encounter Additional Source Comments The information contained in this document represents components of the legal health record. It is not the complete legal health record.[facility]
--- OUTSIDE RECORDS SUMMARY | 2025-06-25 00:27 | XMS_ITS | Encounter Summary ---
Author Organization [facility] Address [address] [place] [address] [place] [address] Phone Care Team Providers Care Supervisor Color Paste Mixing Name Role Phone Robert Loredo DO Primary Care Provider [phone] Robert Loredo DO Unavailable Alejandra Reveles RN Unavailable [email or web address] Robert Loredo DO Unavailable Encounter Details Date Type Department Care Team (Late st Contact Info) Description 03/08/2019 Ancillary Orders [facility], X-Ray - [address] [address] Vincent Willams, DO [address] [place], [place] [id number] [email or web address] Pain in thoracic spine; Low back pain, unspecified back pain laterality, unspecified chronicity, with sciatica presence unspecified Social History Tobacco Use Types Packs/Day Years [...] high school, GED, job training, learning the Bulgarian language, technical skills, or developing parenting skills)? [...] documented as of this encounter Results * XR LUMBOSACRAL SPINE 2-3 VIEWS (03/08/2019 12:13 PM EDT) Anatomical Region Laterality Modality L-spine Radiographic Lilly ging 03/08/2019 12:2 2 PM EDT Impressions 03/08/2019 12:24 PM EDT No significant interval change from 01/02/2019. POS - [id number] Narrative 03/08/2019 12:24 PM EDT COMPARISON: 01/02/2019 FINDINGS: Frontal and lateral views reveal a minimal stable upper endplate compression deformity of the L1 body and inferior endplate compression deformity of the L3 body. No new fracture or subluxation apparent. There is a 4 mm retrolisthesis of the L5 relation to S1 bodies which I believe was present previously but seen to better advantage currently. Disc spaces are stable in height. Procedure Note Leo Duarte MD - 03/08/2019 COMPARISON: 01/02/2019 FINDINGS: Frontal and lateral views reveal a minimal stable upper endplatecompression deformity of the L1 body and inferior endplate compressiondeformity of the L3 body. No new fracture or subluxation apparent. Thereis a 4 mm retrolisthesis of the L5 relation to S1 bodies which I believewas present previously but seen to better advantage currently. Discspaces are stable in height. IMPRESSION: No significant interval change from 01/02/2019. POS - [email or web address] Vincent Willams DO IMG XR SPINE Final Result * XR THORACIC SPINE 3 VIEW (03/08/2019 12:11 PM EDT) Anatomical Region Laterality Modality T-spine Radiographic Lilly ging 03/08/2019 12:2 1 PM EDT Impressions 03/08/2019 12:22 PM EDT Grossly stable compression deformities at the T6, T9, and T11 levels. POS - [email or web address] Narrative 03/08/2019 12:22 PM EDT COMPARISON: 01/05/2019 MR FINDINGS: Frontal and lateral views were obtained. No gross progression of the compression deformities of the T6, T9, or T11 levels apparent. No new fracture or subluxation. There is a right convex thoracolumbar scoliotic curvature. Visualized paraspinal soft tissues are within normal limits. Procedure Note Leo Duarte MD - 03/08/2019 COMPARISON: 01/05/2019 MR FINDINGS: Frontal and lateral views were obtained. No gross progression of thecompression deformities of the T6, T9, or T11 levels apparent. No newfracture or subluxation. There is a right convex thoracolumbar scolioticcurvature. Visualized paraspinal soft tissues are within normal limits. IMPRESSION: Grossly stable compression deformities at the T6, T9, and T11 levels. POS - [email or web address] Vincent Kenny Willams IMG XR SPINE Final Result documented in this encounter Visit Diagnoses Diagnosis Pain in thoracic spine Low back pain, unspecified back pain laterality, unspecified chronicity, with sciatica presence unspecified Pain in thoracic spine Low back pain, unspecified back pain laterality, unspecified chronicity, with sciatica presence unspecified documented in this encounter Care Teams Supervisor Color Paste Mixing Relationship Specialty Start Date End Date Robert Loredo DO [address] [place] [address] [email or web address] PCP - General 07/28/17 Robert Loredo DO [address] [place] [address] [email or web address] Insurance Assigned Provider 03/25/18 Alejandra Reveles RN [address] [place] [address] [email or web address] Lodging Facilities Manager 01/21/2002/05 Robert Loredo DO [address] [place] [address] [email or web address] Insurance Assigned Provider 10/30/22 documented as of this encounter Additional Source Comments The information contained in this document represents components of the legal health record. It is not the complete legal health record.[facility]
--- OUTSIDE RECORDS SUMMARY | 2025-06-25 00:27 | XMS_ITS | Encounter Summary ---
Author Organization [facility] Address [address] [place] [address] [place] [address] Phone Care Team Providers Care Placement Manager Name Role Phone Robert Loredo DO Primary Care Provider [phone] Robert Loredo DO Unavailable Alejandra Reveles RN Unavailable [email or web address] Robert Loredo DO Unavailable Encounter Details Date Type Department Care Team (Late st Contact Info) Description 01/02/2019 Ancillary Orders [facility], X-Ray - [address] [address] Vincent Willams, DO [address] [place] [address] [email or web address] Low back pain, unspecified back pain laterality, [...] high school, GED, job training, learning the Romansh language, technical skills, or developing parenting skills)? [...] this encounter Results * XR LUMBOSACRAL SPINE 4 OR MORE VIEWS (01/02/2019 12:52 PM EDT) Anatomical Region Laterality Modality L-spine Radiographic Lilly ging 01/02/2019 1:10 PM EDT Impressions 01/02/2019 1:14 PM EDT 1. Osteopenia and mild L1 and L3 and moderate T11 anterior wedge compression deformities. 2. Moderate L4-5 and L5-S1 disc space narrowing with L5-S1 facet arthropathy. POS - [email or web address] Narrative 01/02/2019 1:14 PM EDT HISTORY: As above. No trauma. COMPARISON: None. LUMBAR SPINE RADIOGRAPH FINDINGS: Seven views obtained. Bones are osteopenic. Mild L1 and L3 and moderate T11 anterior wedge compression deformities. Moderate L4-5 and L5-S1 disc space narrowing, moderate L5-S1 facet arthropathy and multilevel endplate spurring. No malalignment, spondylolysis or bone lesions. Mild abdominal aortic calcified plaque. Procedure Note Dm Chavarria MD - 01/02/2019 HISTORY: As above. No trauma. COMPARISON: None. LUMBAR SPINE RADIOGRAPH FINDINGS: Seven views obtained. Bones are osteopenic. Mild L1 and L3 and [id number] anterior wedge compression deformities. Moderate L4-5 and L5-S1 discspace narrowing, moderate L5-S1 facet arthropathy and multilevel endplatespurring. No malalignment, spondylolysis or bone lesions. Mild abdominalaortic calcified plaque. IMPRESSION: 1. Osteopenia and mild L1 and L3 and moderate T11 anterior wedgecompression deformities. 2. Moderate L4-5 and L5-S1 disc space narrowing with L5-S1 facetarthropathy. POS - [email or web address] Vincent Willams DO IMG XR SPINE Final Result documented in this encounter Visit Diagnoses Diagnosis Low back pain, unspecified back pain laterality, unspecified chronicity, with sciatica presence unspecified Low back pain, unspecified back pain laterality, unspecified chronicity, with sciatica presence unspecified documented in this encounter Care Teams Placement Manager Relationship Specialty Start Date End Date Robert Loredo DO [address] [place] [address] PCP - General 07/28/17 Robert Loredo DO [address] [place] [address] Insurance Assigned Provider 03/25/18 Alejandra Reveles RN [address] [place] [address] [facility] Physician'S Aide 01/21/2002/05 Robert Loredo DO [address] [place] [address] [email or web address] Insurance Assigned Provider 10/30/22 documented as of this encounter Additional Source Comments The information contained in this document represents components of the legal health record. It is not the complete legal health record.[facility]
--- OUTSIDE RECORDS SUMMARY | 2025-06-25 00:27 | XMS_ITS | Encounter Summary ---
Author Organization [facility] Address [address] [place] [address] Phone Care Team Providers Care Tumbling Instructor Name Role Phone Robert Loredo DO Primary Care Provider [phone] Robert Loredo DO Unavailable Alejandra Reveles RN Unavailable [email or web address] Robert Loredo DO Unavailable Reason for Referral * MRI/CAT Scan - Closed Specialty Diagnoses / Procedures Referred By Libertad ellis Referred To Contact Procedures MRI Brain Outside (No Interpretation) System, Provider Not In, [facility] [address] [address] Referral ID Status Reason Start Date Expiration Date Visits Re quested Visits Authorized [id number] Closed 11/23/2017 11/23/2018 1 1 Encounter Details Date Type Department Care Team (Late st Contact Info) Description 11/23/2017 Ancillary Orders [facility],Outside Imaging [address] [place] [address] System, Provider Not In, [facility] [address] [address] Social History Tobacco Use Types Packs/Day Years [...] as of this encounter Results * MRI Brain Outside (No Interpretation) (03/20/2014 12:00 AM EDT) Narrative SYSTEMGENERATED, DOCUMENTATION - 11/23/2017 2:01 PM EDT This study is for PACS storage only and not for interpretation. us Provider Not In System PhD IMG OUTSIDE IMAGING W /OUT INTERPRETATION Final Result documented in this encounter Visit Diagnoses Not on filedocumented in this encounter Care Teams Tumbling Instructor Relationship Specialty Start Date End Date Robert Loredo DO [address] [place] [address] [email or web address] PCP - General 07/28/17 Robert Loredo DO [address] [place] [address] [email or web address] Insurance Assigned Provider 03/25/18 Alejandra Reveles RN [address] [place] [address] [email or web address] [facility] Hospital Scientist 01/21/2002/05 Robert Loredo DO [address] [place] [address] Insurance Assigned Provider 10/30/22 documented as of this encounter Additional Source Comments The information contained in this document represents components of the legal health record. It is not the complete legal health record.[facility]
--- OUTSIDE RECORDS SUMMARY | 2025-06-25 00:27 | XMS_ITS | Encounter Summary ---
Author Organization [facility] Address [address] [place] [address] Phone Care Team Providers Care Nut Culler Name Role Phone Robert Loredo DO Primary Care Provider [phone] Robert Loredo DO Unavailable Alejandra Reveles RN Unavailable [email or web address] Robert Loredo DO Unavailable Encounter Details Date Type Department Care Team (Late st Contact Info) Description 12/26/2017 Ancillary Orders [facility] [address] [place] [address] Te Pendleton DO [address] [place] [address] [facility] [place] [address] [email or web address] Social History Tobacco Use Types Packs/Day Years [...] on filedocumented in this encounter Care Teams Nut Culler Relationship Specialty Start Date End Date Robert Loredo DO [address] [place] [address] PCP - General 07/28/17 Robert Loredo DO [address] [place] [address] Insurance Assigned Provider 03/25/18 Alejandra Reveles RN [address] [place] [address] [email or web address] 01/21/2002/05 Robert Loredo DO [address] [place] [address] [email or web address] Insurance Assigned Provider 10/30/22 documented as of this encounter Additional Source Comments The information contained in this document represents components of the legal health record. It is not the complete legal health record.[facility]
--- OUTSIDE RECORDS SUMMARY | 2025-06-25 00:27 | XMS_ITS | Encounter Summary ---
Author Organization [facility] Address [address] [place] [address] Phone Care Team Providers Care Movie Theater Manager Name Role Phone Robert Loredo DO Primary Care Provider [phone] Robert Loredo DO Unavailable Alejandra Reveles RN Unavailable [email or web address] Robert Loredo DO Unavailable Encounter Details Date Type Department Care Team (Late st Contact Info) Description 10/27/2017 Procedure Pass [facility] Endoscopy Admitting Dept Virtual Department [address] [place] [address] Social History Tobacco Use Types Packs/Day Years [...] on filedocumented in this encounter Care Teams Movie Theater Manager Relationship Specialty Start Date End Date Robert Loredo DO [address] [place] [address] PCP - General 07/28/17 Robert Loredo DO [address] [place] [address] Insurance Assigned Provider 03/25/18 Alejandra Reveles RN [address] [place] [address] [email or web address] [facility] Public Bath Attendant 01/21/2002/05 Robert Loredo DO [address] [place] [address] [email or web address] Insurance Assigned Provider 10/30/22 documented as of this encounter Additional Source Comments The information contained in this document represents components of the legal health record. It is not the complete legal health record.[facility]
--- OUTSIDE RECORDS SUMMARY | 2025-06-25 00:27 | XMS_ITS | Encounter Summary ---
Author Organization [facility] Address [address] [place] [address] [place] [address] Phone Care Team Providers Care Cosmetic Maker Name Role Phone Robert Loredo DO Primary Care Provider [phone] Robert Loredo DO Unavailable Alejandra Reveles RN Unavailable [email or web address] Robert Loredo DO Unavailable Encounter Details Date Type Department Care Team (Late st Contact Info) Description 12/26/2017 Ancillary Orders [address] [address] Te Pendleton DO [address] [place] [address] Orthopedics & Sports Medicine, [facility] [place] [address] [email or web address] Pain in both knees, unspecified chronicity Social History Tobacco Use Types Packs/Day Years [...] documented as of this encounter Visit Diagnoses Diagnosis Pain in both knees, unspecified chronicity documented in this encounter Care Teams Cosmetic Maker Relationship Specialty Start Date End Date Robert Loredo DO [address] [place] [address] [email or web address] PCP - General 07/28/17 Robert Loredo DO [address] [place] [address] [email or web address] Insurance Assigned Provider 03/25/18 Alejandra Reveles, DEBBY [address] [place] [address] [email or web address] [facility] Watermelon Harvesting Supervisor 01/21/2002/05 Robert Loredo DO [address] [place] [address] [email or web address] Insurance Assigned Provider 10/30/22 documented as of this encounter Additional Source Comments The information contained in this document represents components of the legal health record. It is not the complete legal health record.[facility]
--- OUTSIDE RECORDS SUMMARY | 2025-06-25 00:27 | XMS_ITS | Encounter Summary ---
Author Organization [facility] Address [address] [place] [address] Phone Care Team Providers Care Tank House Operator Helper Name Role Phone Robert Loredo DO Primary Care Provider [phone] Robert Loredo DO Unavailable Alejandra Reveles RN Unavailable [email or web address] Robert Loredo DO Unavailable Encounter Details Date Type Department Care Team (Late st Contact Info) Description 11/08/2017 Procedure Pass [facility], [address] [address] Social History Tobacco Use Types Packs/Day Years [...] on filedocumented in this encounter Care Teams Tank House Operator Helper Relationship Specialty Start Date End Date Robert Loredo DO [address] [place] [address] PCP - General 07/28/17 Robert Loredo DO [address] [place] [address] Insurance Assigned Provider 03/25/18 Alejandra Reveles RN [address] [place] [address] [email or web address] Investigator Fraud 01/21/2002/05 Robert Loredo DO [address] [place] [address] Insurance Assigned Provider 10/30/22 documented as of this encounter Additional Source Comments The information contained in this document represents components of the legal health record. It is not the complete legal health record.[facility]
--- OUTSIDE RECORDS SUMMARY | 2025-06-25 00:27 | XMS_ITS | Encounter Summary ---
Author Organization [facility] Address [address] [place] [address] Phone Care Team Providers Care Card Painter Name Role Phone Robert Loredo DO Primary Care Provider [phone] Robert Loredo DO Unavailable Alejandra Reveles RN Unavailable [email or web address] Robert Loredo DO Unavailable Encounter Details Date Type Department Care Team (Late st Contact Info) Description 11/08/2017 Ancillary Orders Virtual Department [address] [place] [address] Dru Nuñez MD [address] [place] [address], [address] [place], [place] [id number] [email or web address] Ataxia; Seizure Social History Tobacco Use Types Packs/Day Years [...] as of this encounter Results * MRI BRAIN (SEIZURE) WITHOUT CONTRAST (11/25/2017 1:31 PM EDT) Anatomical Region Laterality Modality Head Magnetic Resonan ce 11/25/2017 1:24 PM EDT Impressions 11/25/2017 2:06 PM EDT No intracranial hemorrhage, mass, or infarction detected. No specific source of the seizures is identified. No prominent posterior fossa atrophy. There is moderate diffuse volume loss for age and multiple abnormal foci of white matter signal alteration throughout the supratentorial brain in a non-specific but similar pattern to study of March 20, 2014. POS - [id number] Edited by: Jaqui Jacobs on 11/25/2017 1:43 PM Narrative 11/25/2017 2:06 PM EDT HISTORY: Seizures. Numbness in left hand. Bilateral hand tremors. Dizziness and balance disturbance. COMPARISON: March 20, 2014 TECHNIQUE: Exam performed on a 1.5 Suad high-field MRI scanner. Axial T1, T2, T2 FLAIR and diffusion-weighted imaging with ADC map, coronal T2 FLAIR and STIR, sagittal T1 sequences were obtained. FINDINGS: There is moderate diffuse volume loss for age. There are multiple foci of abnormal white matter signal alteration in this supratentorial white matter tracts, both centrally and subcortically. Most of these appear to be present on prior study. There may be 1 or 2 new lesions in the frontal lobes but no dramatic change has occurred. No areas of restricted diffusion or worrisome susceptibility effect. Pituitary not enlarged. No prominent asymmetries in the medial temporal lobes. No abnormal signal seen. Pituitary not enlarged. Cerebellar tonsils not ectopic. No intra- or extra-axial blood or fluid collection, mass, or mass effect is identified. No gross orbital lesion. There appear to be preserved flow voids in the major intracranial arteries and veins. There is opacification of the left maxillary sinus with circumferential mucosal thickening and presumed partially desiccated debris centrally. Small amounts of fluid in the right maxillary sinus with mild mucosal thickening along the floor. Mild mucosal thickening in frontal sinuses as well as left sphenoid sinus. Procedure Note Maximino Wallace MD - 11/25/2017 HISTORY: Seizures. Numbness in left hand. Bilateral hand tremors.Dizziness and balance disturbance. COMPARISON: March 20, 2014 TECHNIQUE: Exam performed on a 1.5 Suad high-field MRI scanner. AxialT1, T2, T2 FLAIR and diffusion-weighted imaging with ADC map, coronal [id number] and STIR, sagittal T1 sequences were obtained. FINDINGS: There is moderate diffuse volume loss for age. There are multiple foci ofabnormal white matter signal alteration in this supratentorial whitematter tracts, both centrally and subcortically. Most of these appear hank present on prior study. There may be 1 or 2 new lesions in the frontallobes but no dramatic change has occurred. No areas of restricteddiffusion or worrisome susceptibility effect. Pituitary not enlarged. Noprominent asymmetries in the medial temporal lobes. No abnormal signalseen. Pituitary not enlarged. Cerebellar tonsils not ectopic. No intra- orextra-axial blood or fluid collection, mass, or mass effect is identified.No gross orbital lesion. There appear to be preserved flow voids in themajor intracranial arteries and veins. There is opacification of the leftmaxillary sinus with circumferential mucosal thickening and presumedpartially desiccated debris centrally. Small amounts of fluid in the rightmaxillary sinus with mild mucosal thickening along the floor. Mild mucosalthickening in frontal sinuses as well as left sphenoid sinus. IMPRESSION: No intracranial hemorrhage, mass, or infarction detected. No specificsource of the seizures is identified. No prominent posterior fossaatrophy. There is moderate diffuse volume loss for age and multipleabnormal foci of white matter signal alteration throughout thesupratentorial brain in a non-specific but similar pattern to study Luc 2013. POS - [id number] Edited by: Jaqui Jacobs on 11/25/2017 1:43 PM us Dru Nuñez MD IMG MR HEAD/NECK Final Resul t documented in this encounter Visit Diagnoses Diagnosis Ataxia Lack of coordination Seizure Other convulsions Ataxia Lack of coordination Seizure Other convulsions documented in this encounter Care Teams Card Painter Relationship Specialty Start Date End Date Robert Loredo DO [address] [place] [address] [email or web address] PCP - General 07/28/17 Robert Loredo DO [address] [place] [address] Insurance Assigned Provider 03/25/18 Alejandra Reveles RN [address] [place] [address] [email or web address] 01/21/2002/05 Robert Loredo DO [address] [place] [address] [email or web address] Insurance Assigned Provider 10/30/22 documented as of this encounter Additional Source Comments The information contained in this document represents components of the legal health record. It is not the complete legal health record.[facility]
--- OUTSIDE RECORDS SUMMARY | 2025-06-25 00:27 | XMS_ITS | Encounter Summary ---
Author Organization [facility] Address [address] [place] [address] Phone Care Team Providers Care Cloth Shader Name Role Phone Robert Loredo DO Primary Care Provider [phone] Robert Loredo DO Unavailable Alejandra Reveles RN Unavailable [email or web address] Robert Loredo DO Unavailable Encounter Details Date Type Department Care Team (Late st Contact Info) Description 01/09/2018 Ancillary Orders Virtual Department [address] [place] [address] Dru Nuñez MD [address] [place] [address], [address] [place], [place] [id number] [email or web address] Weakness; Numbness Social History Tobacco Use Types Packs/Day Years [...] as of this encounter Results * MRI CERVICAL SPINE (BONE) WITHOUT CONTRAST (01/17/2018 2:47 PM EDT) Anatomical Region Laterality Modality C-spine Magnetic Resonan ce 01/17/2018 4:58 PM EDT Impressions 01/17/2018 6:55 PM EDT 1. Multilevel degenerative changes as described above causing mild neuroforaminal stenosis at multiple levels. 2. Mild retrolisthesis of C4 on C5 and minimally of C5 on C6. POS [id number] Edited by: Marifer Nguyen on 01/17/2018 5:42 PM Narrative 01/17/2018 6:55 PM EDT EXAM: MRI CERVICAL SPINE (BONE) WITHOUT CONTRAST COMPARISON: None. TECHNIQUE: Exam performed on a 1.5 Suad high-field MRI scanner. Sagittal T1, T2 and STIR, axial T2* gradient echo and 3D bright fluid sequences were obtained. FINDINGS: ALIGNMENT: Anatomic alignment is maintained. Mild retrolisthesis of C4 on C5 and minimal retrolisthesis of C5 on C6. VERTEBRAL BODIES: Vertebral body heights are maintained. Bone marrow signal pattern is within normal limits. Endplate changes and prominent anterior marginal osteophytes at C4-C5 and a minor degree at C6-C7. INTERVERTEBRAL DISCS: Desiccation changes in all included levels. Mild loss of disc height at C4-C5, C5-C6 and C6-C7 levels. Schmorl node in the endplate of C4. POSTERIOR FOSSA STRUCTURES/SPINAL CORD: Posterior fossa structures are grossly unremarkable. Included spinal cord has normal caliber and signal characteristics. Axial images were obtained from C2-C3 through T1-T2. Level by level analysis yields the following: C2-C3: No disc herniation. No significant canal or neuroforaminal stenosis. C3-C4: Minimal bulging disc, but no significant canal or neuroforaminal stenosis. C4-C5: Mild retrolisthesis of C4 on C5, uncovertebral degenerative changes and facet arthropathy contributes to mild bilateral neuroforaminal stenosis. No significant canal stenosis. C5-C6: Disc osteophyte complex, uncovertebral degenerative changes and facet arthropathy result in mild bilateral neuroforaminal stenosis. No significant canal stenosis. C6-C7: Disc osteophyte complex, uncovertebral degenerative change of facet arthropathy result in mild bilateral neuroforaminal stenosis. No significant canal stenosis. C7-T1: No disc herniation. No significant canal or neuroforaminal stenosis. T1-T2: No disc herniation. No significant canal or neuroforaminal stenosis. OTHERS: Prevertebral soft tissues and posterior paraspinal soft tissues are unremarkable. Procedure Note Magdi Baker MD - 01/17/2018 EXAM: MRI CERVICAL SPINE (BONE) WITHOUT CONTRAST COMPARISON: None. TECHNIQUE: Exam performed on a 1.5 Suad high-field MRI scanner.Sagittal T1, T2 and STIR, axial T2* gradient echo and 3D bright fluidsequences were obtained. FINDINGS: ALIGNMENT: Anatomic alignment is maintained. Mild retrolisthesis of C4 onC5 and minimal retrolisthesis of C5 on C6. VERTEBRAL BODIES: Vertebral body heights are maintained. Bone marrowsignal pattern is within normal limits. Endplate changes and prominentanterior marginal osteophytes at C4-C5 and a minor degree at C6-C7. INTERVERTEBRAL DISCS: Desiccation changes in all included levels. Mildloss of disc height at C4-C5, C5-C6 and C6-C7 levels. Schmorl node in theendplate of C4. POSTERIOR FOSSA STRUCTURES/SPINAL CORD: Posterior fossa structures aregrossly unremarkable. Included spinal cord has normal caliber and signalcharacteristics. Axial images were obtained from C2-C3 through T1-T2. Level by levelanalysis yields the following: C2-C3: No disc herniation. No significant canal or neuroforaminalstenosis. C3-C4: Minimal bulging disc, but no significant canal or neuroforaminalstenosis. C4-C5: Mild retrolisthesis of C4 on C5, uncovertebral degenerative changesand facet arthropathy contributes to mild bilateral neuroforaminalstenosis. No significant canal stenosis. C5-C6: Disc osteophyte complex, uncovertebral degenerative changes andfacet arthropathy result in mild bilateral neuroforaminal stenosis. Nosignificant canal stenosis. C6-C7: Disc osteophyte complex, uncovertebral degenerative change of facetarthropathy result in mild bilateral neuroforaminal stenosis. Nosignificant canal stenosis. C7-T1: No disc herniation. No significant canal or neuroforaminalstenosis. T1-T2: No disc herniation. No significant canal or neuroforaminalstenosis. OTHERS: Prevertebral soft tissues and posterior paraspinal soft tissuesare unremarkable. IMPRESSION: 1. Multilevel degenerative changes as described above causing mildneuroforaminal stenosis at multiple levels. 2. Mild retrolisthesis of C4 on C5 and minimally of C5 on C6. POS [email or web address] Edited by: Marifer Nguyen on 01/17/2018 5:42 PM Dru Nuñez MD IMG MR XSPECIALTY Final Resu lt documented in this encounter Visit Diagnoses Diagnosis Weakness Other malaise and fatigue Numbness Disturbance of skin sensation Weakness Other malaise and fatigue Numbness Disturbance of skin sensation documented in this encounter Care Teams Cloth Shader Relationship Specialty Start Date End Date Robert Loredo DO [address] [place] [address] PCP - General 07/28/17 Robert Loredo DO [address] [place] [address] [email or web address] Insurance Assigned Provider 03/25/18 Alejandra Reveles RN [address] [place] [address] [email or web address] [facility] Manager Steel 01/21/2002/05 Robert Loredo DO [address] [place] [address] [email or web address] Insurance Assigned Provider 10/30/22 documented as of this encounter Additional Source Comments The information contained in this document represents components of the legal health record. It is not the complete legal health record.[facility]
--- OUTSIDE RECORDS SUMMARY | 2025-06-25 00:27 | XMS_ITS | Encounter Summary ---
Author Organization [facility] Address [address] [place] [address] Phone Care Team Providers Care Cow Washer Name Role Phone Robert Loredo DO Primary Care Provider [phone] Robert Loredo DO Unavailable Alejandra Reveles RN Unavailable [email or web address] Robert Loredo DO Unavailable Encounter Details Date Type Department Care Team (Late st Contact Info) Description 11/23/2017 Procedure Pass [facility] Imaging [address] [place], [place] [id number] Social History Tobacco Use Types Packs/Day Years Used Date Smoking Tobacco: Every Day Cigarettes 0.5 30 Smokeless Tobacco: Never Alcohol Use Standard Drinks/Week Comments Yes 2 (1 standard drink = 0.6 oz pur e alcohol) occasionally Sex and Gender Information Value Date Recorded [...] on filedocumented in this encounter Care Teams Cow Washer Relationship Specialty Start Date End Date Dacus, Robert J, DO [address] [place] [address] [email or web address] PCP - General 07/28/17 Robert Loredo DO [address] [place] [address] [email or web address] Insurance Assigned Provider 03/25/18 Alejandra Reveles RN [address] [place] [address] [email or web address] 01/21/2002/05 Robert Loredo DO [address] [place] [address] [email or web address] Insurance Assigned Provider 10/30/22 documented as of this encounter Additional Source Comments The information contained in this document represents components of the legal health record. It is not the complete legal health record.[facility]
--- NOTE | 2025-06-25 01:06 | PM.IMHP ---
History of Present Illness Date of Service: 06/25/25 Attending physician on admission: Alber Deleon Chief Complaint: R abd/back pain Patient is a 55-year-old male with a past medical history significant for seizure disorder, hypothyroid and Parkinson's, who presented to the ED due to 2 weeks of epigastric pain that radiates to the back. He reported that his pain became worse today after having 4 beers with associated nausea and vomiting. He reports that he does not usually drink large amounts of alcohol and does not have any history of binge drinking or chronic alcoholism. He denies any acid reflux, diarrhea, constipation or history of kidney stones. Review of Systems Constitutional: Constitutional: Denies body ache(s), Denies chills, Denies fatigue, Denies fever(s) and Denies headache(s) Eyes: Eyes: Denies change in vision ENT: Denies headache(s), Denies nasal discharge and Denies sore throat Cardiovascular: Cardiovascular: Denies chest pain, Denies rapid heart rate, Denies leg edema, Denies lightheadedness and Denies dyspnea Respiratory: Respiratory: Denies chest congestion, Denies cough, Denies dyspnea and Denies wheezing Gastrointestinal: Gastrointestinal: Reports as per HPI Genitourinary: Genitourinary: Denies dysuria and Denies urinary urgency Musculoskeletal: Musculoskeletal: Reports back pain Integumentary/Breasts: Skin/Breast: Denies rash Neurologic: Denies confusion and Denies headache(s) Psychiatric: Psychiatric: Denies confusion Endocrine: Endocrine: Denies fatigue Hematologic/Lymphatic: Hematologic/Lymphatic: Denies easy bleeding Allergic/Immunologic: Allergic/Immunologic: Denies wheezing [facility] Medical History Hypothyroid Seizures Parkinson's disease Functional capacity: independent ambulation Social History Alcohol intake: current Alcohol intake frequency: a few times a week Smoked in Last 30 Days: No Use of substances other than those prescribed or required for medical reasons: No Advance Directives: No Advance Directives Information Provided: Yes Meds Allergies Allergy/AdvReac Type Severity Reaction Status Date / Time Seasonal Allergies Allergy Intermediate Itchy Eyes Verified 06/24/25 21:23 Active Medications: Current Medications Acetaminophen (Acetaminophen 325 Mg Tablet) 650 mg PO Q6H PRN PRN Reason: Pain, Mild 1-3,fever,headache Calcium Carbonate (Calcium Carbonate 750 Mg Tab.Chew) 750 mg PO Q4H PRN PRN Reason: Heartburn Heparin Sodium (Porcine) (Heparin Sodium,Porcine 5,000 Unit/Ml Vial) 5,000 unit SUBCUT Q8H TAYLOR Hydromorphone HCl (Hydromorphone Hcl 1 Mg/Ml Syringe) 0.5 mg IVPUSH Q4H PRN; Protocol PRN Reason: Pain, Severe (Pain Scale 7-10) Sodium Chloride (Ns) 3,000 mls @ 999 mls/hr IVCONT .Q3H1M ONE Stop: 06/25/25 01:50 Last Admin: 06/24/25 23:13 Dose: 999 mls/hr Levetiracetam (Keppra) 1,500 mg in 100 mls @ 400 mls/hr IV ONCE ONE Stop: 06/25/25 01:07 Lactated Ringer's (Lr) 1,000 mls @ 100 mls/hr IVCONT .Q10H TAYLOR Magnesium Hydroxide (Milk Of Magnesia 30 Ml Oral.Susp) 30 ml PO DAILY PRN PRN Reason: Constipation Melatonin (Melatonin 3 Mg Tablet) 6 mg PO BEDTIME PRN PRN Reason: Insomnia Ondansetron HCl (Ondansetron Hcl 4 Mg/2 Ml Vial) 4 mg IVPUSH Q8H PRN PRN Reason: Nausea and Vomiting Oxycodone HCl (Oxycodone Hcl Immed Release 5 Mg Tablet) 5 mg PO Q6H PRN PRN Reason: Pain, Moderate(Pain Scale 4-6) Sodium Chloride (0.9 % Sodium Chloride Flush 3 Ml Syringe) 3 ml IVFLUSH QSHIFT [facility] Physical Exam Vital Signs and Narrative: Vital Signs: Last Vital Signs Temp 98.0 F 06/24/25 21:21 Pulse 88 06/24/25 21:21 Resp 20 06/24/25 21:21 BP 170/93 H 06/24/25 21:21 Pulse Ox 96 06/24/25 21:21 O2 Del Method Room Air 06/24/25 21:21 BMI result Body Mass Index 22.0 General: AOx3, no acute distress Resp: CTA bilaterally CVS: S1, S2, RRR GI: hypoactive, tender epigastric region, no distention Skin: Warm, dry Neuro: Cranial nerves II-XII grossly intact bilaterally. Motor grossly intact bilaterally Extremities: No edema Psych: Appropriate affect Const: General: No confusion Orientation/consciousness: No confusion Neuro: General: No confusion Results Labs 06/24/25 21:56 06/24/25 21:56 Labs: Laboratory Results - last 24 hr 06/24/25 06/24/25 21:53 21:56 MCV 96.1 MCH 33.5 H MCHC 34.9 RDW 14.0 Plt Count 295 MPV 8.8 L Immature Gran % (Auto) 1.2 H Neut % (Auto) 68.0 Lymph % (Auto) 14.4 L [place] % (Auto) 9.5 Eos % (Auto) 6.1 H Baso % (Auto) 0.8 Lymph # (Auto) 2.1 [place] # (Auto) 1.4 H Eos # (Auto) 0.9 H Baso # (Auto) 0.1 Abs Immat Gran (auto) 0.17 H Absolute Neuts (auto) 9.9 H Absolute Nucleated RBC 0.000 Nucleated RBC % (auto) 0.0 Anion Gap 14 Estim Creat Clear Calc 101.0 Estimated GFR > 60 Random Glucose 90 Calcium 9.1 Total Bilirubin 0.5 AST 49 H ALT 18 Alkaline Phosphatase 94 Total Protein 7.2 Albumin 4.6 Triglycerides 50 Lipase > 3000 H Urine Color Yellow Urine Appearance Clear Urine pH 5.5 Ur Specific [place] 1.010 Urine Protein Negative Urine Glucose (UA) Negative Urine Ketones Trace Urine Blood Negative Urine Nitrite Negative Ur Leukocyte Esterase Negative Urine RBC 0-2 Urine WBC 0-5 Ur Squamous Epith Cells 0-2 Urine Bacteria None Seen Hyaline Casts 0-2 Ethyl Alcohol 128 Assessment and Plan (1) Pancreatitis: Status: Acute (2) Mass of pancreas: Status: Acute (3) Portal vein thrombosis: Status: Acute Plan Patient is a 55-year-old male with a past medical history significant for seizure disorder, hypothyroid and Parkinson's, who presented to the ED due to 2 weeks of epigastric pain that radiates to the back. Lipase significantly elevated and CTs consistent with pancreatitis and possible pancreatic mass. Pancreatitis with possible pancreatic mass - leukocytosis likely reactive - MRCP - GI consult - NPO for MRCP - IV fluids - pain management with oxycodone and Dilaudid - monitor CBC and CMP Portal vein thrombosis on CT, nonocclusive - lovenox 70mg Q12H - GI consult as above Seizure disorder - Keppra and lamotrigine Hypothyroid - levothyroxine Parkinson's - carbidopa/levodopa Med rec pending Full code VTE prophylaxis: lovenox Patient with acute pancreatitis with possible pancreatic mass, requiring admission for at least 2 midnight stay for further evaluation and pain management. Quality Stroke Does the patient have a stroke diagnosis?: No VTE Prior VTE?: No VTE Risk Level:: Medical - moderate - high VTE Device Contraindication: Treatment Not Indicated VTE Drug Contraindication: N/A - Med Ordered
[2025-06-25] MEDS: levETIRAcetam in NaCl (iso-os) 1,500 MG/100 ML PIGGYBACK 400 MG IV ×2 (01:24→08:40)
[2025-06-25] MEDS: Lactated Ringers 1,000 ML 80 ML IVCONT ×3 (02:48→23:16)
[2025-06-25 05:01] LABS: MANUAL DIFF FLAG NO
[2025-06-25 05:04] LABS: Hematocrit 46.0 % (42.0-52.0); Hemoglobin 16.1 g/dl (14.0-18.0); Imm Gran Abs Auto 0.14 X10*3/uL (0.00-0.03); Imm Gran Pct Auto 0.9 % (0.0-0.4); Lymphocytes Absolute Auto 1.2 X10*3/uL (1.2-4.9); Mean Corpuscular HGB Conc 35.0 g/dl (31.0-36.0); Mean Corpuscular Hemoglobin 33.6 pg (27.0-33.0); Mean Corpuscular Volume 96.0 fL (80.0-98.0); NRBC Abs Auto 0.000 X10*3/uL (0.0-0.012); NRBC Pct Auto 0.0 /100WBC (0.0-0.2); Platelet Count 301 X10*3/uL (160-400); Red Blood Count 4.79 X10*6/uL (4.60-5.80); White Blood Count 16.1 X10*3/uL (4.8-10.8)
[2025-06-25 05:22] LABS: Alanine Aminotransferase 24 U/L (0-40); Albumin Level 4.4 g/dL (3.5-5.0); Alkaline Phosphatase 83 U/L (39-117); Anion Gap 16 (12-20); Aspartate Amino Transferase 37 U/L (5-37); Blood Urea Nitrogen 7 mg/dL (9-16); Calcium 8.2 mg/dL (8.4-10.2); Carbon Dioxide 24 mmol/L (22-29); Chloride 102 mmol/L (96-108); Creatinine Clr Calc Pharmacy 114.8; Estimated Glomerular Filt Rate > 60; Potassium 4.1 mmol/L (3.3-5.1); Sodium 138 mmol/L (135-145); Total Protein 6.8 g/dL (6.5-8.0)
[2025-06-25 05:33] LABS: Lipase 1170 U/L (8-78)
--- NOTE | 2025-06-25 08:08 | PHA.MEDREC ---
Pharmacy Consult ? Medication Reconciliation Pharmacy has completed the medication reconciliation. Spoke with pt to confirm medications. Pt takes Keppra 500mg 3 tabs BID.
--- NOTE | 2025-06-25 08:50 | PC.NURSE ---
[place] [id number]. report received from doug GUARDADO. pt ambulates steadily using walker to and from bathroom . MRI screening form filled out and faxed at this time.
--- NOTE | 2025-06-25 09:55 | PC.NURSE ---
Patient away for MRI.
--- NOTE | 2025-06-25 10:42 | PM.EVENT ---
Event Note Date of Service: 06/25/25 Event Note: 55-year-old male with a past medical history significant for seizure disorder, hypothyroid and Parkinson's, who presented to the ED due to 2 weeks of epigastric pain that radiates to the back. Lipase significantly elevated and CTs consistent with pancreatitis and possible pancreatic mass. Pancreatitis with possible pancreatic mass leukocytosis likely reactive MRCP results pending GI consult NPO for MRCP IV fluids pain management with oxycodone and Dilaudid monitor CBC and CMP Portal vein thrombosis on CT, nonocclusive lovenox 70mg Q12H GI consult as above Seizure disorder Keppra and lamotrigine Hypothyroid levothyroxine Parkinson's carbidopa/levodopa Full code VTE prophylaxis: lovenox Time Spent With Patient Time: Total time managing care of this patient today ____ minutes.
--- NOTE | 2025-06-25 13:57 | PC.NURSE ---
Ambulated to bathroom and back with walker use. Patient is alert/oriented, calm/cooperative. Awaiting med/surg bed. Admission assessment completed earlier this shift. Consents to receiving Flu shot on unit during admission.
--- NOTE | 2025-06-25 15:14 | HO.SKINPHOTO ---
Location: back patient has discoloration on his back - patient reported that he was using a heating pad frequently at home due to pain.
[2025-06-25] MEDS: Nicotine 14 MG PATCH.TD24 TRANSDERMA (15:41)
--- NOTE | 2025-06-25 16:00 | PC.NURSE ---
Patient alert and oriented, expressed alcohol use every weekend and every Mondays and Wednesdays, 3-4 drinks a day. Patient tachycardic, hypertensive, tremors (patient reports tremors due to Parkinsons) and positive Audit - C score on admission. Provider Cathi Garcia notified via [employer] verbalized for CIWA order.
[2025-06-25] MEDS: PHENobarbitaL sodium 130 MG/ML IM ONCE 328 MG IM (17:00)
[2025-06-25] MEDS: PHENobarbitaL sodium 130 MG/ML VIAL IM Q3Hx2 246 MG IM ×2 (21:35→23:16)
[2025-06-25] MEDS: Diclofenac Sodium Delayed Rel 50 MG TABLET.DR PO (21:47)
[2025-06-26 03:26] VITALS: BP 112/67; PULSE 104; RESP 18; TEMP 37.4; O2SAT 94
[2025-06-26 06:25] LABS: MANUAL DIFF FLAG NO
[2025-06-26 06:36] LABS: Hematocrit 40.3 % (42.0-52.0); Hemoglobin 14.1 g/dl (14.0-18.0); Imm Gran Abs Auto 0.06 X10*3/uL (0.00-0.03); Imm Gran Pct Auto 0.4 % (0.0-0.4); Lymphocytes Absolute Auto 1.7 X10*3/uL (1.2-4.9); Mean Corpuscular HGB Conc 35.0 g/dl (31.0-36.0); Mean Corpuscular Hemoglobin 33.5 pg (27.0-33.0); Mean Corpuscular Volume 95.7 fL (80.0-98.0); NRBC Abs Auto 0.000 X10*3/uL (0.0-0.012); NRBC Pct Auto 0.0 /100WBC (0.0-0.2); Platelet Count 257 X10*3/uL (160-400); Red Blood Count 4.21 X10*6/uL (4.60-5.80); White Blood Count 14.4 X10*3/uL (4.8-10.8)
[2025-06-26 06:51] LABS: Alanine Aminotransferase 6 U/L (0-40); Albumin Level 3.2 g/dL (3.5-5.0); Alkaline Phosphatase 57 U/L (39-117); Aspartate Amino Transferase 33 U/L (5-37); Blood Urea Nitrogen 9 mg/dL (9-16); Calcium 8.0 mg/dL (8.4-10.2); Creatinine Clr Calc Pharmacy 117.6; Estimated Glomerular Filt Rate > 60; Total Protein 5.1 g/dL (6.5-8.0)
[2025-06-26 07:00] LABS: Anion Gap 12 (12-20); Carbon Dioxide 29 mmol/L (22-29); Chloride 97 mmol/L (96-108); Potassium 3.5 mmol/L (3.3-5.1); Sodium 134 mmol/L (135-145)
[2025-06-26 07:44] VITALS: BP 134/86; PULSE 107; RESP 17; TEMP 37.5; O2SAT 94
[2025-06-26] MEDS: Diclofenac Sodium Delayed Rel 50 MG TABLET.DR PO ×2 (07:58→21:14)
[2025-06-26] MEDS: Nicotine 14 MG PATCH.TD24 TRANSDERMA (07:59)
--- NOTE | 2025-06-26 08:46 | PM.GICN ---
History of Present Illness Data of Consult Service Date: 06/26/25 Primary Care Provider: Unknown Physician HPI Reason for consult: pancreatitis 55-year-old male with a past medical history significant for seizure disorder, hypothyroid and Parkinson's, who i am seeing for assessment for pancreatitis and pamncreas lesion He initially presents with few days hx of 10/10 epigastric pain with nausea going into the back and worse with food and moving, with no relieving factors. Pain may have came after he drank beers for thanksgiving. He denies fevr, chills, melena or rectal bleeding. He has a remote history of heavy alcohol use. IMAGING: CT with peripancreatic fluid and stranding with edematous pancreas and dense lesion in head of pancreas and clot in PV, scoliosis MRCP- pancreas lesion and PVT LABS: lipase >3000, AST mild elevation, Review of Systems Review of Systems: Constitutional : No Weight loss, No Fever, No Chills ENT/Mouth : No sore throat, No Rhinorrhea Eyes: No Swelling, No Redness Cardiovascular : No Chest Pain, No SOB, No Edema Respiratory : No Cough, No Sputum, No Wheezing Gastrointestinal : see HPI Genitourinary : NO Dysuria, No Urinary Frequency, No Hematuria, No Urgency Musculoskeletal : + joint pain, No Myalgias, No Joint Swelling Skin : No Skin Lesions, No rash Neuro : No Weakness, No Numbness, No Dizziness, No Headache Psych : No Anxiety/Panic, No Depression Heme/Lymph: No Bruising, No Lymphadenopathy Endocrine : No Polyuria, No Polydipsia All other systems reviewed and are negative. [facility] Past Medical History Medical History Hypothyroid Seizures Parkinson's disease Social History Social History Household Members: Friend(s) Housing: Other Do you presently have visiting nurse or other home services: No Alcohol intake: current Alcohol intake frequency: a few times a week Patient Tobacco Use Status: Current everyday Tobacco user Tobacco use type: Cigarette service: No Meds Allergies Allergy/AdvReac Type Severity Reaction Status Date / Time Seasonal Allergies Allergy Intermediate Itchy Eyes Verified 06/24/25 21:23 Active Medications: Current Medications Acetaminophen (Acetaminophen 325 Mg Tablet) 650 mg PO Q6H PRN PRN Reason: Pain, Mild 1-3,fever,headache Calcium Carbonate (Calcium Carbonate 750 Mg Tab.Chew) 750 mg PO Q4H PRN PRN Reason: Heartburn Carbidopa/Levodopa (Carbidopa/Levodopa 25/100 Tablet) 1 tab PO TID [facility] Last Admin: 06/26/25 07:58 Dose: 1 tab Diclofenac Sodium (Diclofenac Sodium Delayed Rel 50 Mg Tablet.Dr) 50 mg PO BID [facility] Last Admin: 06/26/25 07:58 Dose: 50 mg Enoxaparin Sodium (Enoxaparin Sodium 80 Mg/0.8 Ml Syringe) 70 mg 1 mg/kg (70 mg) SUBCUT Q12H [facility] Last Admin: 06/26/25 02:31 Dose: 70 mg Hydromorphone HCl (Hydromorphone Hcl 1 Mg/Ml Syringe) 0.5 mg IVPUSH Q4H PRN; Protocol PRN Reason: Pain, Severe (Pain Scale 7-10) Last Admin: 06/25/25 21:47 Dose: 0.5 mg Lactated Ringer's (Lr) 1,000 mls @ 100 mls/hr IVCONT .Q10H [facility] Last Admin: 06/25/25 23:16 Dose: 80 mls/hr Lamotrigine (Lamotrigine 25 Mg Tablet) 150 mg PO BID [facility] Last Admin: 06/26/25 07:59 Dose: 150 mg Levetiracetam (Levetiracetam 500 Mg Tablet) 1,500 mg PO BID [facility] Last Admin: 06/26/25 07:59 Dose: 1,500 mg Levothyroxine Sodium (Levothyroxine Sodium 112 Mcg Tablet) 112 mcg PO DAILY@0600 [facility] Last Admin: 06/26/25 05:18 Dose: 112 mcg Lisinopril (Lisinopril 2.5 Mg Tablet) 2.5 mg PO DAILY [facility]; Protocol Last Admin: 06/26/25 07:58 Dose: 2.5 mg Loratadine (Loratadine 10 Mg Tablet) 10 mg PO DAILY [facility] Last Admin: 06/26/25 07:59 Dose: 10 mg Magnesium Hydroxide (Milk Of Magnesia 30 Ml Oral.Susp) 30 ml PO DAILY PRN PRN Reason: Constipation Melatonin (Melatonin 3 Mg Tablet) 6 mg PO BEDTIME PRN PRN Reason: Insomnia Multivitamins/Vitamin C (Multivitamin Tablet) 1 tab PO DAILY [facility] Last Admin: 06/26/25 07:58 Dose: 1 tab Nicotine (Nicotine 14 Mg Patch.Td24) 14 mg TRANSDERMA DAILY [facility] Last Admin: 06/26/25 07:59 Dose: 14 mg Ondansetron HCl (Ondansetron Hcl 4 Mg/2 Ml Vial) 4 mg IVPUSH Q8H PRN PRN Reason: Nausea and Vomiting Last Admin: 06/25/25 17:41 Dose: 4 mg Oxycodone HCl (Oxycodone Hcl Immed Release 5 Mg Tablet) 5 mg PO Q6H PRN PRN Reason: Pain, Moderate(Pain Scale 4-6) Pharmacy Consult (Consult Rx Etoh Phenob Im/Po) 1 each MISCELLANE ONCE PRN; Protocol PRN Reason: Consult order Phenobarbital (Phenobarbital 15 Mg Tablet) 45 mg PO BID [facility] Stop: 06/27/25 21:01 Last Admin: 06/26/25 07:58 Dose: 45 mg Phenobarbital (Phenobarbital 30 Mg Tablet) 30 mg PO BID [facility] Stop: 06/29/25 21:01 Phenobarbital (Phenobarbital 15 Mg Tablet) 15 mg PO DAILY [facility] Stop: 07/01/25 09:01 Sodium Chloride (0.9 % Sodium Chloride Flush 3 Ml Syringe) 3 ml IVFLUSH QSHIFT [facility] Last Admin: 06/26/25 08:10 Dose: Not Given Home Medications ?Medication ?Instructions ?Recorded ?Confirmed ?Last Taken ?Type acetaminophen 500 mg tablet 500 mg PO Q6H PRN Pain 06/25/25 06/25/25 06/24/25 History carbidopa 25 mg-levodopa 100 mg 1 tab PO TID 06/25/25 06/25/25 06/24/25 History tablet cetirizine 10 mg tablet 10 mg PO DAILY 06/25/25 06/25/25 06/24/25 History diclofenac sodium 50 mg 50 mg PO BID 06/25/25 06/25/25 06/24/25 History tablet,delayed release lamotrigine 150 mg tablet 150 mg PO BID 06/25/25 06/25/25 06/24/25 History levetiracetam 500 mg tablet 1,500 mg PO BID 06/25/25 06/25/25 06/24/25 History levothyroxine 112 mcg tablet 112 mcg PO DAILY@0600 06/25/25 06/25/25 06/24/25 History multivitamin 1 tab PO DAILY 06/25/25 06/25/25 06/24/25 History Physical Exam Exam: Exam: EXAM: GENERAL: The patient is well developed and nontoxic. VITAL SIGNS:see workflow HEENT: Nonicteric sclerae, PERRLA, EOMI. Oropharynx clear. Moist mucous membranes. Conjunctivae appear well perfused. No thyroid mass. CHEST: Chest wall is nontender. HEART: Regular rate and rhythm without murmurs. LUNGS: Clear to auscultation bilaterally. ABDOMEN: Soft, positive bowel sounds, tender epigastrium, no organomegaly.no flank tenderness SKIN: No rash, no excessive bruising, petechiae, or purpura. NEUROLOGIC: Cranial nerves II-XII intact without motor/sensory deficit. parkinsonian facies Psych: normal affect Vital Signs: Vital Signs: Last Vital Signs Temp 99.5 F 06/26/25 07:44 Pulse 107 H 06/26/25 07:44 Resp 17 06/26/25 07:44 BP 134/86 06/26/25 07:44 Pulse Ox 94 06/26/25 07:44 O2 Del Method Nasal Cannula 06/26/25 07:44 O2 Flow Rate 2 06/26/25 07:44 BMI result Body Mass Index 23.7 Results Labs 06/27/25 05:22 06/27/25 05:22 Labs: Short CBC 06/26/25 Range/Units 05:53 WBC 14.4 H (4.8-10.8) X10*3/uL Hgb 14.1 (14.0-18.0) g/dl Hct 40.3 L (42.0-52.0) % Plt Count 257 (160-400) X10*3/uL BMP 06/26/25 05:53 Sodium 134 L Potassium 3.5 Chloride 97 Carbon Dioxide 29 BUN 9 Creatinine 0.67 Calcium 8.0 L Liver Function 06/26/25 Range/Units 05:53 Total Bilirubin 0.9 (0.0-1.0) mg/dL AST 33 (5-37) U/L ALT 6 (0-40) U/L Alkaline Phosphatase 57 (39-117) U/L Albumin 3.2 L (3.5-5.0) g/dL Imaging CT scan - abdomen: Attestation: I personally reviewed and interpreted this imaging study as follows: (pancreatitis, PVT, lesion in head of pancreas ) Assessment and Plan (1) Mass of pancreas: Status: Acute (2) Portal vein thrombosis: Status: Acute Plan 1/ Pancreatitis and PVT, possible pancreatic mass, vs panc cyst PLAN: 1/ fluids and analgesia, PO diet as tolerated, alcohol abstinence 2/ agree with anticoagulation, 3-6 months, likely 2/2 to pancreatitis due to alcohol use 3/ repeat MRI with contrast to better delineate lesion on imaging, may need referral for EUS if indeed a mass lesion is confirmed Procedures Date of Service Date of Service: 06/27/25
[2025-06-26] MEDS: Lactated Ringers 1,000 ML 100 ML IVCONT ×2 (09:37→19:40)
[2025-06-26 12:00] VITALS: BP 109/58; PULSE 100; RESP 13; TEMP 37.3; O2SAT 94
--- NOTE | 2025-06-26 13:04 | P.PNIM_ITS ---
Subjective Subjective Date of Service: 06/26/25 Interval History: Patient seen and examined at bedside this morning, patient states that he continues with pain, recently diagnosed with pancreatitis and portal vein thrombosis, GI consulted. Continues on IV fluids and pain medications. Review of Systems Review of Systems: Yes all other systems are reviewed and are negative Physical Exam 2 Exam: Exam: General: Somnolent Ox3, No acute distress Head: AT/NC ENT: Moist mucous membranes Neck: supple CVS; RRR, S1 S2 normal Lungs: Clear bilateral breath sounds, no wheezes or crackles Abd: Soft, tender to palpation on superficial palpation Ext: No edema and no calf tenderness MSK: moving all 4 limbs Skin: No cyanosis or edema Psych: Cooperative with exam Neurology: no focal deficit Vital Signs: Vital Signs: Last Vital Signs Temp 99.1 F 06/26/25 12:00 Pulse 100 06/26/25 12:00 Resp 13 06/26/25 12:00 BP 109/58 L 06/26/25 12:00 Pulse Ox 94 06/26/25 12:00 O2 Del Method Room Air 06/26/25 12:00 O2 Flow Rate 2 06/26/25 07:44 BMI result Body Mass Index 23.7 Objective Data Active Medications Acetaminophen (Acetaminophen 325 Mg Tablet) 650 mg PO Q6H PRN PRN Reason: Pain, Mild 1-3,fever,headache Calcium Carbonate (Calcium Carbonate 750 Mg Tab.Chew) 750 mg PO Q4H PRN PRN Reason: Heartburn Carbidopa/Levodopa (Carbidopa/Levodopa 25/100 Tablet) 1 tab PO TID [facility] Last Admin: 06/26/25 07:58 Dose: 1 tab Documented By: SATISH Diclofenac Sodium (Diclofenac Sodium Delayed Rel 50 Mg Tablet.) 50 mg PO BID [facility] Last Admin: 06/26/25 07:58 Dose: 50 mg Documented By: SATISH Enoxaparin Sodium (Enoxaparin Sodium 80 Mg/0.8 Ml Syringe) 70 mg 1 mg/kg (70 mg) SUBCUT Q12H [facility] Last Admin: 06/26/25 02:31 Dose: 70 mg Documented By: OUSMANE Hydromorphone HCl (Hydromorphone Hcl 1 Mg/Ml Syringe) 0.5 mg IVPUSH Q4H PRN; Protocol PRN Reason: Pain, Severe (Pain Scale 7-10) Last Admin: 06/25/25 21:47 Dose: 0.5 mg Documented By: OUSMANE Lactated Ringer's (Lr) 1,000 mls @ 100 mls/hr IVCONT .Q10H [facility] Last Admin: 06/26/25 09:37 Dose: 100 mls/hr Documented By: SATISH Lamotrigine (Lamotrigine 25 Mg Tablet) 150 mg PO BID [facility] Last Admin: 06/26/25 07:59 Dose: 150 mg Documented By: SATISH Levetiracetam (Levetiracetam 500 Mg Tablet) 1,500 mg PO BID [facility] Last Admin: 06/26/25 07:59 Dose: 1,500 mg Documented By: SATISH Levothyroxine Sodium (Levothyroxine Sodium 112 Mcg Tablet) 112 mcg PO DAILY@0600 [facility] Last Admin: 06/26/25 05:18 Dose: 112 mcg Documented By: OUSMANE Lisinopril (Lisinopril 2.5 Mg Tablet) 2.5 mg PO DAILY [facility]; Protocol Last Admin: 06/26/25 07:58 Dose: 2.5 mg Documented By: SATISH Loratadine (Loratadine 10 Mg Tablet) 10 mg PO DAILY [facility] Last Admin: 06/26/25 07:59 Dose: 10 mg Documented By: SATISH Magnesium Hydroxide (Milk Of Magnesia 30 Ml Oral.Susp) 30 ml PO DAILY PRN PRN Reason: Constipation Melatonin (Melatonin 3 Mg Tablet) 6 mg PO BEDTIME PRN PRN Reason: Insomnia Multivitamins/Vitamin C (Multivitamin Tablet) 1 tab PO DAILY [facility] Last Admin: 06/26/25 07:58 Dose: 1 tab Documented By: SATISH Nicotine (Nicotine 14 Mg Patch.Td24) 14 mg TRANSDERMA DAILY [facility] Last Admin: 06/26/25 07:59 Dose: 14 mg Documented By: SATISH Ondansetron HCl (Ondansetron Hcl 4 Mg/2 Ml Vial) 4 mg IVPUSH Q8H PRN PRN Reason: Nausea and Vomiting Last Admin: 06/25/25 17:41 Dose: 4 mg Documented By: TR Oxycodone HCl (Oxycodone Hcl Immed Release 5 Mg Tablet) 5 mg PO Q6H PRN PRN Reason: Pain, Moderate(Pain Scale 4-6) Pharmacy Consult (Consult Rx Etoh Phenob Im/Po) 1 each MISCELLANE ONCE PRN; Protocol PRN Reason: Consult order Phenobarbital (Phenobarbital 15 Mg Tablet) 45 mg PO BID [facility] Stop: 06/27/25 21:01 Last Admin: 06/26/25 07:58 Dose: 45 mg Documented By: SATISH Phenobarbital (Phenobarbital 30 Mg Tablet) 30 mg PO BID [facility] Stop: 06/29/25 21:01 Phenobarbital (Phenobarbital 15 Mg Tablet) 15 mg PO DAILY [facility] Stop: 07/01/25 09:01 Sodium Chloride (0.9 % Sodium Chloride Flush 3 Ml Syringe) 3 ml IVFLUSH QSHIFT [facility] Last Admin: 06/26/25 08:10 Dose: Not Given Documented By: SATISH Non-Admin Reason: IV Running Labs 06/26/25 05:53 06/26/25 05:53 Labs: Laboratory Results - last 24 hr 06/26/25 05:53 MCV 95.7 MCH 33.5 H MCHC 35.0 RDW 14.1 Plt Count 257 MPV 9.6 Immature Gran % (Auto) 0.4 Neut % (Auto) 75.6 H Lymph % (Auto) 11.5 L [place] % (Auto) 6.3 Eos % (Auto) 5.4 H Baso % (Auto) 0.8 Lymph # (Auto) 1.7 [place] # (Auto) 0.9 Eos # (Auto) 0.8 H Baso # (Auto) 0.1 Abs Immat Gran (auto) 0.06 H Absolute Neuts (auto) 10.8 H Absolute Nucleated RBC 0.000 Nucleated RBC % (auto) 0.0 Anion Gap 12 Estim Creat Clear Calc 117.6 Estimated GFR > 60 Random Glucose 87 Calcium 8.0 L Total Bilirubin 0.9 AST 33 ALT 6 Alkaline Phosphatase 57 Total Protein 5.1 L Albumin 3.2 L Assessment and Plan (1) Pancreatitis: Status: Acute (2) Mass of pancreas: Status: Acute (3) Portal vein thrombosis: Status: Acute Plan 55-year-old male with a past medical history significant for seizure disorder, hypothyroid and Parkinson's, who presented to the ED due to 2 weeks of epigastric pain that radiates to the back. Lipase significantly elevated and CTs consistent with pancreatitis and possible pancreatic mass. Pancreatitis, improving Pancreatic head mass measuring 1.7 x 1.3 cm mass MRCP reviewed GI consult Continue IV LR fluids pain management with Dilaudid clear liquid diets ordered, will advance if tolerated Will require outpatient MRI with contrast and follow up for Pancreatic head mass Portal vein thrombosis on CT, nonocclusive lovenox 70mg Q12H, will likely require lifelong anticoagulation GI consult as above Seizure disorder Keppra and lamotrigine Hypothyroid levothyroxine Parkinson's carbidopa/levodopa alcohol use disorder -continue phenobarbital protocol -[facility] -Addiction medicine consulted Full code VTE prophylaxis: lovenox Total time managing care of this patient today: 55 minutes. Quality Stroke Does the patient have a stroke diagnosis?: No VTE Prior VTE?: No VTE Risk Level:: Medical - moderate - high VTE Device Contraindication: Treatment Not Indicated VTE Drug Contraindication: N/A - Med Ordered
[2025-06-26] MEDS: 0.9 % Sodium Chloride Flush 3 ML SYRINGE IVFLUSH (14:58)
--- NOTE | 2025-06-26 15:28 | MHC.CM.PN ---
[facility] DELIVERED PT LIVES WITH ROOMMATE AND IS FUNCTIONALLY INDEPENDENT. NO SERVICES OR DME. PT DECLINES TO COMPLETE A HCP AT THIS TIME. PCP DR. GRAJEDA DP: HOME WITH NEW [facility] (FIRST CHOICE) IF NEEDS LOVENOX BRIDGE. PT MAY NEED ASSIST WITH A RIDE HOME. CM WILL CONTINUE TO FOLLOW FOR ANY CHANGE TO DC PLAN.
[2025-06-26 15:35] VITALS: BP 93/61; PULSE 106; RESP 20; TEMP 36.8; O2SAT 91
[2025-06-26 19:16] VITALS: BP 117/73; PULSE 102; RESP 18; TEMP 36.7; O2SAT 96
[2025-06-26 23:40] VITALS: BP 109/64; PULSE 88; RESP 18; TEMP 36.9; O2SAT 92
[2025-06-27 03:12] VITALS: BP 102/65; PULSE 82; RESP 18; TEMP 36.6; O2SAT 92
[2025-06-27 06:04] LABS: MANUAL DIFF FLAG NO
[2025-06-27 06:05] LABS: Hematocrit 37.1 % (42.0-52.0); Hemoglobin 12.8 g/dl (14.0-18.0); Imm Gran Abs Auto 0.10 X10*3/uL (0.00-0.03); Imm Gran Pct Auto 0.8 % (0.0-0.4); Lymphocytes Absolute Auto 1.9 X10*3/uL (1.2-4.9); Mean Corpuscular HGB Conc 34.5 g/dl (31.0-36.0); Mean Corpuscular Hemoglobin 33.6 pg (27.0-33.0); Mean Corpuscular Volume 97.4 fL (80.0-98.0); NRBC Abs Auto 0.000 X10*3/uL (0.0-0.012); NRBC Pct Auto 0.0 /100WBC (0.0-0.2); Platelet Count 224 X10*3/uL (160-400); Red Blood Count 3.81 X10*6/uL (4.60-5.80); White Blood Count 11.8 X10*3/uL (4.8-10.8)
[2025-06-27] MEDS: Lactated Ringers 1,000 ML 100 ML IVCONT (06:14)
[2025-06-27 06:19] LABS: Alanine Aminotransferase 6 U/L (0-40); Albumin Level 2.9 g/dL (3.5-5.0); Alkaline Phosphatase 54 U/L (39-117); Anion Gap 9 (12-20); Aspartate Amino Transferase 41 U/L (5-37); Blood Urea Nitrogen 7 mg/dL (9-16); Calcium 8.1 mg/dL (8.4-10.2); Carbon Dioxide 30 mmol/L (22-29); Chloride 99 mmol/L (96-108); Creatinine Clr Calc Pharmacy 119.4; Estimated Glomerular Filt Rate > 60; Potassium 3.3 mmol/L (3.3-5.1); Sodium 135 mmol/L (135-145); Total Protein 4.9 g/dL (6.5-8.0)
[2025-06-27 07:25] VITALS: BP 133/80; PULSE 88; RESP 18; TEMP 36.6; O2SAT 97
[2025-06-27 08:54] VITALS: BP 133/80
[2025-06-27] MEDS: Nicotine 14 MG PATCH.TD24 TRANSDERMA (08:54)
[2025-06-27] MEDS: 0.9 % Sodium Chloride Flush 3 ML SYRINGE IVFLUSH (08:54)
[2025-06-27] MEDS: Diclofenac Sodium Delayed Rel 50 MG TABLET.DR PO (08:55)
[2025-06-27 11:15] VITALS: BP 126/82; PULSE 98; RESP 18; TEMP 36.6; O2SAT 95
--- NOTE | 2025-06-27 12:31 | PC.NURSE ---
Patient states that he wants to leave against medical advice. Patient stating that he is very agitated having a roommate and that the staff here is too loud and it isnt helping him get better. States that he will feel better in his own home. MD went over all isks of leaving AMA and patient understood. All belongings given back to patient IV removed and tele taken off.
--- NOTE | 2025-06-27 13:01 | P.DS_ITS ---
DS: Providers Provider Date of Service: 06/27/25 Date of admission: 06/25/25 01:02 Date of discharge: 06/27/25 Primary care physician: Unknown Physician Consults: 06/25/25 14:34 Consult to Gastroenterology Routine Consulting Provider: [facility] [place] [facility] Reason for consultation: mass to pancreas 06/26/25 10:39 Addiction Medicine Provider Routine Consulting Provider: Addiction Covering Reason for consultation: alcohol use disorder Has provider been notified: No DS: Diagnosis Discharge Diagnosis (1) Mass of pancreas: Status: Acute (2) Portal vein thrombosis: Status: Acute DS: Summary Hospital Course Hospital Course: 55-year-old male with a past medical history significant for seizure disorder, hypothyroid and Parkinson's, who presented to the ED due to 2 weeks of epigastric pain that radiates to the back. Lipase significantly elevated and CTs consistent with pancreatitis and possible pancreatic mass. With MRCP showing 1.7 x 1.3 cm mass of the pancreatic head, requiring to be followed up with MRI IV contrast to further assess. Patient also with thrombosis of the left portal vein with extension into the main portal vein. Patient today stated that he wishes to leave AMA, as he does not want a roommate, also feeling anxious. Counseling was given to patient on the importance of remaining in the hospital to continue treatment for his pancreatitis and portal vein thrombosis, as if this is not treated appropriately, may lead to sepsis and ultimately , patient states that he understands but that his anxiety will kill him and not pancreatitis . Medications offered, patient refused. We will send DOAC, as ideally he would require warfarin bridging, however left AMA without setting this up. Patient advised to follow up as an outpatient with PCP as well as GI. Patient signed AMA paperwork and left. Pancreatitis, improving Pancreatic head mass measuring 1.7 x 1.3 cm mass MRCP reviewed GI consult and follow up Will require outpatient MRI with contrast and follow up for Pancreatic head mass Portal vein thrombosis on CT, nonocclusive continue Eliquis for at least 6 months, follow up with PCP Seizure disorder Keppra and lamotrigine Hypothyroid levothyroxine Parkinson's carbidopa/levodopa alcohol use disorder -counselling given Time Attestation Discharge Coordination Time (in mins): 35 minutes Quality: Safe Use of Opioids Does Pt have an Active Cancer Diagnosis on the Problem List?: No Quality: Stroke Does the patient have a stroke diagnosis?: No Physical Exam Exam: Exam: General: AxOx3, No acute distress Head: AT/NC ENT: Moist mucous membranes Neck: supple CVS; RRR, S1 S2 normal Lungs: Clear bilateral breath sounds, no wheezes or crackles Abd: Soft non tender, non distended Ext: No edema and no calf tenderness MSK: moving all 4 limbs Skin: No cyanosis or edema Psych: Anxious and demanding Neurology: no focal deficit Vital Signs: Vital Signs: Last Vital Signs Temp 97.8 F 06/27/25 11:15 Pulse 98 06/27/25 11:15 Resp 18 06/27/25 11:15 BP 126/82 06/27/25 11:15 Pulse Ox 95 06/27/25 11:15 O2 Del Method Room Air 06/27/25 11:15 O2 Flow Rate 2 06/26/25 07:44 BMI result Body Mass Index 23.7 DS: Data Data Completed and Pending Labs on day of discharge: Laboratory Results - last 24 hr 06/27/25 05:22 WBC 11.8 H RBC 3.81 L Hgb 12.8 L Hct 37.1 L MCV 97.4 MCH 33.6 H MCHC 34.5 RDW 13.9 Plt Count 224 MPV 9.8 Immature Gran % (Auto) 0.8 H Neut % (Auto) 62.2 Lymph % (Auto) 16.1 L [place] % (Auto) 10.0 Eos % (Auto) 10.0 H Baso % (Auto) 0.9 Lymph # (Auto) 1.9 [place] # (Auto) 1.2 Eos # (Auto) 1.2 H Baso # (Auto) 0.1 Abs Immat Gran (auto) 0.10 H Absolute Neuts (auto) 7.4 Absolute Nucleated RBC 0.000 Nucleated RBC % (auto) 0.0 Sodium 135 Potassium 3.3 Chloride 99 Carbon Dioxide 30 H Anion Gap 9 L BUN 7 L Creatinine 0.66 Estim Creat Clear Calc 119.4 Estimated GFR > 60 Random Glucose 79 Calcium 8.1 L Total Bilirubin 0.7 AST 41 H ALT 6 Alkaline Phosphatase 54 Total Protein 4.9 L Albumin 2.9 L Discharge Plan Discharge Patient Disposition: Left Against Medical Advice Discharge Diagnosis: Pancreatitis Portal Vein thrombosis Referrals: Alistair Linn MD [Physician, Gastroenterology] - 2 Weeks Physician,Unknown J [Primary Care Provider, Medical] - 1 Week Discharge Medications: New Eliquis 5 mg tablet 5 mg PO BID 90 Days Qty: 180 0RF Continued multivitamin Tablet 1 tab PO DAILY lamotrigine 150 mg tablet 150 mg PO BID cetirizine 10 mg tablet 10 mg PO DAILY levetiracetam 500 mg tablet 1,500 mg PO BID acetaminophen 500 mg tablet 500 mg PO Q6H PRN (Reason: Pain) diclofenac sodium 50 mg tablet,delayed release (DR/EC) 50 mg PO BID carbidopa-levodopa 25-100 mg tablet 1 tab PO TID levothyroxine 112 mcg tablet 112 mcg PO DAILY@0600 Discharge Orders: Discharge Order (Routine); Ordered 06/27/25 Ordered By: Bryce Craig Print Language: Tunisian Care Plan Goals: continue anticoagulation avoid alcohol Health Concerns: pancreatitis pancreatic mass portal vein thrombosis Plan of Treatment: anticoagulation follow up with GI and PCP MRI as outpatient avoid alocohol Assessment: 55-year-old male with a past medical history significant for seizure disorder, hypothyroid and Parkinson's, who presented to the ED due to 2 weeks of epigastric pain that radiates to the back. Lipase significantly elevated and CTs consistent with pancreatitis and possible pancreatic mass. With MRCP showing 1.7 x 1.3 cm mass of the pancreatic head, requiring to be followed up with MRI IV contrast to further assess. Patient also with thrombosis of the left portal vein with extension into the main portal vein. Patient today stated that he wishes to leave AMA, as he does not want a roommate, also feeling anxious. Counseling was given to patient on the importance of remaining in the hospital to continue treatment for his pancreatitis and portal vein thrombosis, as if this is not treated appropriately, may lead to sepsis and ultimately , patient states that he understands but that his anxiety will kill him and not pancreatitis . Medications offered, patient refused. We will send DOAC, as ideally he would require lovenox/warfarin bridging, however left AMA without setting this up. Patient advised to follow up as an outpatient with PCP as well as GI. Patient signed AMA paperwork and left. Discharge Date/Time: 06/27/25 12:13
--- NOTE | 2025-06-27 13:49 | MHC.CM.PN ---
Patient has left AMA.
== END 2025-06-27 12:13 | disposition left against medical advice (07) | DRG 438 ==
LOC: HO.ED 06-25 00:23 → HO.EDOVER 06-25 01:11 → HO.S3 06-25 14:29 → HO.IMC 06-26 14:47
PROVIDERS: Admitting Provider Physician Assistant; Emergency Provider Emergency Medicine; Visit Provider Student in an Organized Health Care Education/Training Program
DX: K85.90 Acute pancreatitis without necrosis or infection, unspecified (principal); I81 Portal vein thrombosis; E03.9 Hypothyroidism, unspecified; G20.A1 Parkinson's disease without dyskinesia, without mention of fluctuations; F10.90 Alcohol use, unspecified, uncomplicated; K86.9 Disease of pancreas, unspecified; Y90.6 Blood alcohol level of 120-199 mg/100 ml; G40.909 Epilepsy, unspecified, not intractable, without status epilepticus; F17.210 Nicotine dependence, cigarettes, uncomplicated; Z71.6 Tobacco abuse counseling; Z79.890 Hormone replacement therapy; Z79.899 Other long term (current) drug therapy
CPT/HCPCS: 36415; 74177; 74181; 80053; 80307; 81001; 83690; 84478; 85025; 99285; J0360; J1171; J1650; J1953; J2270; J2405; J2560; J7120; Q9967; S9485

== ENCOUNTER → 2025-06-24 22:51 | Outpatient (BNV) | payer MEDICARE, SELFPAY | PROVIDERS: Emergency Provider Emergency Medicine; Visit Provider Student in an Organized Health Care Education/Training Program | DX: R10.13 Epigastric pain (principal) | CPT/HCPCS: 74177 ==

== ENCOUNTER 2025-06-25 01:02 | Outpatient (BNV) | payer MEDICARE, SELFPAY | END 2025-06-25 10:00 | PROVIDERS: Admitting Provider Physician Assistant; Emergency Provider Emergency Medicine; Visit Provider Radiology Diagnostic Radiology | DX: Z03.89 Encounter for observation for other suspected diseases and conditions ruled out (principal) | CPT/HCPCS: 74181 ==

== ENCOUNTER → 2025-06-25 01:02 | Outpatient (BNV) | payer MEDICARE, SELFPAY | PROVIDERS: Admitting Provider Physician Assistant; Emergency Provider Emergency Medicine; Visit Provider Nurse Practitioner Acute Care | DX: K85.90 Acute pancreatitis without necrosis or infection, unspecified (principal); K86.89 Other specified diseases of pancreas; I81 Portal vein thrombosis | CPT/HCPCS: 99222; 99499 ==

== ENCOUNTER → 2025-06-25 01:02 | Outpatient (BNV) | payer MEDICARE, SELFPAY | PROVIDERS: Admitting Provider Physician Assistant; Emergency Provider Emergency Medicine; Visit Provider Internal Medicine Gastroenterology | DX: K86.89 Other specified diseases of pancreas (principal); I81 Portal vein thrombosis | CPT/HCPCS: 99223 ==

== ENCOUNTER 2025-07-14 20:04 | Emergency (ER) | payer MEDICARE, SELFPAY ==
--- OUTSIDE RECORDS SUMMARY | 2014-03-19 23:00 | XMS_ITS | Encounter Summary ---
Author Organization [facility] Address [address] [place] [id number] Phone Care Team Providers Care Medical Collector Name Role Phone Unavailable Primary Care Provider Unavailabl e Reason for Visit * MRI/CAT Scan - Closed Specialty Diagnoses / Procedures Referred By Libertad ellis Referred To Contact Procedures MRI Brain Outside (No Interpretation) System, Provider Not In, [facility] [address] [address] Referral ID Status Reason Start Date Expiration Date Visits Re quested Visits Authorized [id number] Closed 11/23/2017 11/23/2018 1 1 Encounter Details Date Type Department Care Team (Late st Contact Info) Description 03/20/2014 Hospital Encounter [facility],Outside Imaging [address] [place] [address] System, Provider Not In, [facility] [address] [address] Social History Tobacco Use Types Packs/Day Years [...] on file documented as of this encounter Plan of Treatment Upcoming Encounters Date Type Department Care Team (Late st Contact Info) Description 07/05/2025 Procedure Pass [address] [place] [address] 07/26/2025 2:30 PM EST Appointment [address] [place] [address] Robert Loredo, DO [address] [facility] [place] [address] [email or web address] documented as of this encounter Procedures Procedure [...] It is not the complete legal health record.[facility]
--- NOTE | ~2025-07-14 | XR_ITS ---
CLINICAL HISTORY: Cough 1 view chest x-ray Comparison: None provided Findings: The lungs are clear. Normal size heart. No acute fracture. Degenerative changes of the bilateral shoulders. IMPRESSION: No consolidation. This document has been electronically signed by: Loli Summers MD on 07/14/2025 20:45:31
[2025-07-14 20:10] VITALS: BP 150/96; BP 150/98; PULSE 120; PULSE 125; RESP 20; TEMP 37.6; O2SAT 98; BMI 22.8
--- NOTE | 2025-07-14 20:17 | ECG_ITS ---
Test Reason : CHEST PAIN Blood Pressure : */* mmHG Vent. Rate : 125 BPM Atrial Rate : 125 BPM P-R Int : 146 ms QRS Dur : 130 ms QT Int : 314 ms P-R-T Axes : 22 98 13 degrees QTcB Int : 453 ms Sinus tachycardia Possible Left atrial enlargement Right bundle branch block Abnormal ECG No previous ECGs available Referred By: Generic ED Physician Electronically Signed By: TAMIKO KATZ MD
[2025-07-14 20:28] VITALS: O2SAT 98
--- OUTSIDE RECORDS SUMMARY | 2025-07-14 20:29 | XMS_ITS | Encounter Summary ---
Author Organization [facility] Address [address] [place] [address] [place] [address] Phone Care Team Providers Care Chain Sales Representative Name Role Phone Robert Loredo DO Primary Care Provider [phone] Encounter Details Date Type Department Care Team (Late st Contact Info) Description 07/10/2025 Ancillary Orders [facility],Outside Imaging [address] [place], [place] [id number] Unknown, Unknown, Social History Tobacco Use Types Packs/Day Years [...] enough money to get more. Never True 12/21/202 1 Residential Stability Answer Date Recor ded What is your housing situation today? I have aracelis frazier 07/14/2021 How many times have you moved in the past 12 mon ths? One time 07/14/2021 Paying for Meds [...] st Contact Info) Description 07/05/2025 Procedure [address] [place] [address] 07/26/2025 2:30 PM EST Appointment [address] [place] [address] Robert Loredo, DO [address] [place] [address] documented as of this encounter Results * CT Abdomen/Pelvis Outside (No Interpretation) (06/24/2025 12:00 AM EST) Narrative Urszula Purvis - 07/10/2025 8:45 AM EST This study is for PACS storage only and not for interpretation. Procedure Note Urszula Purvis - 07/10/2025 This study is for PACS storage only and not for interpretation. us Unknown Unknown MD RODRIGUEZ OUTSIDE IMAGING W/OUT INT ERPRETATION Final Result documented in this encounter Visit Diagnoses Not on filedocumented in this encounter Additional Health Concerns Assessment Noted Time PHQ-9 Depression Total Score: 6 07/14/20 21 9:18 AM EST PHQ-2 Depression Total Score: 3 07/14/20 21 9:18 AM EST documented as of this encounter Care Teams Chain Sales Representative Relationship Specialty Start Date End Date Robert Loredo DO [address] [place] [address] [email or web address] PCP - General 07/28/17 documented as of this encounter Additional Source Comments The information contained in this document represents components of the legal health record. It is not the complete legal health record.[facility]
--- OUTSIDE RECORDS SUMMARY | 2025-07-14 20:29 | XMS_ITS | Encounter Summary ---
Author Organization [facility] Address [address] [place] [address] [place] [address] Phone Care Team Providers Care Transfer And Pumphouse Operator Name Role Phone Robert Loredo DO Primary Care Provider [phone] Robert Loredo DO Unavailable Alejandra Reveles RN Unavailable [email or web address] Robert Loredo DO Unavailable Encounter Details Date Type Department Care Team (Late st Contact Info) Description 01/02/2019 Ancillary Orders [facility], X-Ray - [address] [address] Vincent Willams, DO [address] [place] [address] [email or web address] Low back pain, unspecified back pain laterality, [...] high school, GED, job training, learning the Armenian language, technical skills, or developing parenting skills)? [...] st Contact Info) Description 07/05/2025 Procedure Pass [address] [place] [address] 07/26/2025 2:30 PM EST Appointment [address] [place] [address] Robert Loredo, [address] [place] [address] documented as of this encounter Results * [...] are osteopenic. Mild L1 and L3 and [id number] anterior wedge compression deformities. Moderate L4-5 and [...] unspecified documented in this encounter Care Teams Transfer And Pumphouse Operator Relationship Specialty Start Date End Date Robert Loredo DO [address] [place] [address] [email or web address] PCP - General 07/28/17 Robert Loredo DO [address] [place] [address] [email or web address] Insurance Assigned Provider 03/25/18 Alejandra Reveles RN [address] [place] [address] [email or web address] Farmer Cash Grain 01/21/2002/05 Robert Loredo DO [address] [place] [address] [email or web address] Insurance Assigned Provider 10/30/22 documented as of this encounter Additional Source Comments The information contained in this document represents components of the legal health record. It is not the complete legal health record.[facility]
--- OUTSIDE RECORDS SUMMARY | 2025-07-14 20:29 | XMS_ITS | Encounter Summary ---
Author Organization [facility] Address [address] [place] [address] Phone Care Team Providers Care Obstetrics Scrub Nurse Name Role Phone Robert Loredo DO Primary Care Provider [phone] Robert Loredo DO Unavailable Alejandra Reveles RN Unavailable [email or web address] Robert Loredo DO Unavailable Reason for Referral * MRI/CAT Scan - Closed Specialty Diagnoses / Procedures Referred By Libertad ellis Referred To Contact Radiology Diagnoses Left hand weakness Numbness Lightheadedness Carpal tunnel syndrome, unspecified laterality White matter disease Procedures MRI Brachial Plexus (Left) MRI CHEST MRI NECK Dru Nuñez MD Phone: tel: fax: [email or web address] Referral ID Status Reason Start Date Expiration Date Visits Re quested Visits Authorized [id number] Closed 09/11/2018 09/11/2019 1 1 Encounter Details Date Type Department Care Team (Late st Contact Info) Description 08/31/2018 Ancillary Orders [facility] Department [address] [place] [address] Dru Nuñez MD [address] [place] [address], [address] [place] [address] [email or web address] Left hand weakness; Numbness; Lightheadedness; Carpal tunnel [...] st Contact Info) Description 07/05/2025 Procedure Pass [address] [place] [address] 07/26/2025 2:30 PM EST Appointment [address] [place] [address] Robert Loredo DO [address] [place] [address] [email or web address] documented as of this encounter Results * [...] antegrade flow bilaterally. S/S: TIA POS - [id number] Narrative 09/11/2018 3:18 PM EST The carotid [...] antegrade flow bilaterally. S/S: TIA POS - [id number] us Dru Nuñez MD CV US NEUROVASCULAR Final Re sult * MRI [...] on 09/11/2018 2:35 PM Dru Nuñez MD IMG MR HEAD/NECK Final [...] ischemia documented in this encounter Care Teams Obstetrics Scrub Nurse Relationship Specialty Start Date End Date Robert Loredo DO [address] [place] [address] [email or web address] PCP - General 07/28/17 Robert Loreod DO [address] [place] [address] [email or web address] Insurance Assigned Provider 03/25/18 Alejandra Reveles RN [address] [place] [address] [email or web address] Class Instructor 01/21/2002/05 Robert Loredo DO [address] [place] [address] [email or web address] Insurance Assigned Provider 10/30/22 documented as of this encounter Additional Source Comments The information contained in this document represents components of the legal health record. It is not the complete legal health record.[facility]
--- OUTSIDE RECORDS SUMMARY | 2025-07-14 20:29 | XMS_ITS | Encounter Summary ---
Author Organization [facility] Address [address] [place] [address] Phone Care Team Providers Care Sewer And Drain Technician Name Role Phone Robert Loredo DO Primary Care Provider [phone] Robert Loredo DO Unavailable Alejandra Reveles RN Unavailable [email or web address] Robert Loredo DO Unavailable Encounter Details Date Type Department Care Team (Late st Contact Info) Description 01/09/2018 Procedure Pass [facility], [address] [address] Social History Tobacco Use Types Packs/Day Years [...] st Contact Info) Description 07/05/2025 Procedure Pass [address] [place] [address] 07/26/2025 2:30 PM EST Appointment [address] [place] [address] Robert Loredo DO [address] [place] [address] documented as of this encounter Visit Diagnoses Not on filedocumented in this encounter Care Teams Sewer And Drain Technician Relationship Specialty Start Date End Date Robert Loredo DO [address] [place] [address] PCP - General 07/28/17 Robert Loredo DO [address] [place] [address] Insurance Assigned Provider 03/25/18 Alejandra Reveles, DEBBY [address] [place] [address] [email or web address] Cnc Mechanic 01/21/2002/05 Robert Loredo DO [address] [place] [address] Insurance Assigned Provider 10/30/22 documented as of this encounter Additional Source Comments The information contained in this document represents components of the legal health record. It is not the complete legal health record.[facility]
--- OUTSIDE RECORDS SUMMARY | 2025-07-14 20:29 | XMS_ITS | Encounter Summary ---
Author Organization [facility] Address [address] [place] [address] Phone Care Team Providers Care Ingot Passer Name Role Phone Robert Loredo DO Primary Care Provider [phone] Encounter Details Date Type Department Care Team (Late st Contact Info) Description 07/12/2025 Telephone [facility] [address] [place] [address] Keeley Fonseca [address] [place] [address] [email or web address] Social History Tobacco Use Types Packs/Day Years [...] is your housing situation today? I have aracleis frazier 07/14/2021 How many times have you [...] as of this encounter Progress Notes * Keeley Fonseca - 07/12/2025 1:05 PM EST Provider needs to sign the medical clarification request form for Cetirizine documented in this encounter Plan of Treatment Upcoming Encounters Date Type Department Care Team (Late st Contact Info) Description 07/05/2025 Procedure Pass [address] [place] [address] 07/26/2025 2:30 PM EST Appointment [address] [place] [address] Robert Loredo, DO [address] [place] [address] [email or web address] documented as of this encounter Visit Diagnoses Not on filedocumented in this encounter Additional Health Concerns Assessment Noted Time PHQ-9 Depression Total Score: 6 07/14/20 21 9:18 AM EST PHQ-2 Depression Total Score: 3 07/14/20 21 9:18 AM EST documented as of this encounter Care Teams Ingot Passer Relationship Specialty Start Date End Date Robert Loredo DO [address] [place] [address] [email or web address] PCP - General 07/28/17 documented as of this encounter Additional Source Comments The information contained in this document represents components of the legal health record. It is not the complete legal health record.[facility]
--- OUTSIDE RECORDS SUMMARY | 2025-07-14 20:29 | XMS_ITS | Encounter Summary ---
Author Organization [facility] Address [address] [place] [address] Phone Care Team Providers Care Pastry Cook Name Role Phone Robert Loredo DO Primary Care Provider [phone] Robert Loredo DO Unavailable Alejandra Reveles RN Unavailable [email or web address] Robert Loredo DO Unavailable Encounter Details Date Type Department Care Team (Late st Contact Info) Description 01/09/2018 Ancillary Orders Virtual Department [address] [place] [address] Dru Nuñez MD [address] [place] [address], [address] [place], [place] [id number] [email or web address] Weakness; Numbness Social History [...] st Contact Info) Description 07/05/2025 Procedure Pass [address] [place] [address] 07/26/2025 2:30 PM EST Appointment [address] [place] [address] Robert Loredo, DO [address] [place] [address] documented as of this encounter Results * [...] sensation documented in this encounter Care Teams Pastry Cook Relationship Specialty Start Date End Date Robert Loredo DO [address] [place] [address] PCP - General 07/28/17 Robert Loredo DO [address] [place] [address] [email or web address] Insurance Assigned Provider 03/25/18 Alejandra Reveles RN [address] [place] [address] [email or web address] Driver 01/21/2002/05 Robert Loredo DO [address] [place] [address] [email or web address] Insurance Assigned Provider 10/30/22 documented as of this encounter Additional Source Comments The information contained in this document represents components of the legal health record. It is not the complete legal health record.[facility]
--- OUTSIDE RECORDS SUMMARY | 2025-07-14 20:29 | XMS_ITS | Encounter Summary ---
Author Organization [facility] Address [address] [place] [address] [place] [address] Phone Care Team Providers Care Geophysical Prospecting Permit Agent Name Role Phone Robert Loredo DO Primary Care Provider [phone] Robert Loredo DO Unavailable Alejandra Reveles RN Unavailable [email or web address] Robert Loredo DO Unavailable Encounter Details Date Type Department Care Team (Late st Contact Info) Description 03/08/2019 Ancillary Orders [facility], X-Ray - [address] [address] Vincent Willams, DO [address] [place], [place] [id number] [email or web address] Pain in thoracic spine; Low back pain, [...] high school, GED, job training, learning the Kosovan language, technical skills, or developing parenting skills)? [...] st Contact Info) Description 07/05/2025 Procedure Pass [address] [place] [address] 07/26/2025 2:30 PM EST Appointment [address] [place] [address] Robert Loredo, DO [address] [place] [address] documented as of this encounter Results * [...] and T11 levels. POS - [id number] Vincent Willams DO IMG XR SPINE Final Result documented in this encounter Visit Diagnoses Diagnosis Pain in thoracic spine Low back pain, unspecified back pain laterality, unspecified chronicity, with sciatica presence unspecified Pain in thoracic spine Low back pain, unspecified back pain laterality, unspecified chronicity, with sciatica presence unspecified documented in this encounter Care Teams Geophysical Prospecting Permit Agent Relationship Specialty Start Date End Date Robert Loredo DO [address] [place] [address] [email or web address] PCP - General 07/28/17 Robert Loredo DO [address] [place] [address] [email or web address] Insurance Assigned Provider 03/25/18 Alejandra Reveles RN [address] [place] [address] [email or web address] [facility] Night Nurse 01/21/2002/05 Robert Loredo DO [address] [place] [address] [email or web address] Insurance Assigned Provider 10/30/22 documented as of this encounter Additional Source Comments The information contained in this document represents components of the legal health record. It is not the complete legal health record.[facility]
--- OUTSIDE RECORDS SUMMARY | 2025-07-14 20:29 | XMS_ITS | Encounter Summary ---
Author Organization [facility] Address [address] [place] [address] Phone Care Team Providers Care Learning Strategist Name Role Phone Robert Loredo DO Primary Care Provider [phone] Robert Loredo DO Unavailable Alejandra Reveles RN Unavailable [email or web address] Robert Loredo DO Unavailable Reason for Referral * MRI/CAT Scan - Closed Specialty Diagnoses / Procedures Referred By Libertad ellis Referred To Contact Procedures MRI Brain Outside (No Interpretation) System, Provider Not In, [facility] [address] [address] Referral ID Status Reason Start Date Expiration Date Visits Re quested Visits Authorized [id number] Closed 11/23/2017 11/23/2018 1 1 Encounter Details Date Type Department Care Team (Late st Contact Info) Description 11/23/2017 Ancillary Orders [facility],Outside Imaging [address] [place] [address] System, Provider Not In, [facility] [address] [address] Social History Tobacco Use Types Packs/Day Years [...] st Contact Info) Description 07/05/2025 Procedure Pass [address] [place] [address] 07/26/2025 2:30 PM EST Appointment [address] [place] [address] Roebrt Loredo DO [address] [place] [address] documented as of this encounter Results * MRI Brain Outside (No Interpretation) (03/20/2014 12:00 AM EDT) Narrative SYSTEMGENERATED, DOCUMENTATION - 11/23/2017 2:01 PM EDT This study is for PACS storage only and not for interpretation. us Provider Not In System PhD IMG OUTSIDE IMAGING W /OUT INTERPRETATION Final Result documented in this encounter Visit Diagnoses Not on filedocumented in this encounter Care Teams Learning Strategist Relationship Specialty Start Date End Date Robert Loredo DO [address] [place] [address] PCP - General 07/28/17 Robert Loredo DO [address] [place] [address] [email or web address] Insurance Assigned Provider 03/25/18 Alejandra Reveles RN [address] [place] [address] [email or web address] Riding Instructor 01/21/2002/05 Robert Loredo DO [address] [place] [address] Insurance Assigned Provider 10/30/22 documented as of this encounter Additional Source Comments The information contained in this document represents components of the legal health record. It is not the complete legal health record.[facility]
--- OUTSIDE RECORDS SUMMARY | 2025-07-14 20:29 | XMS_ITS | Encounter Summary ---
Author Organization [facility] Address [address] [place] [address] Phone Care Team Providers Care Top Stitcher Name Role Phone Robert Loredo DO Primary Care Provider [phone] Robert Loredo DO Unavailable Alejandra Reveles RN Unavailable [email or web address] Robert Loredo DO Unavailable Encounter Details Date Type Department Care Team (Late st Contact Info) Description 11/08/2017 Procedure Pass [facility], [address] [address] Social History Tobacco Use Types Packs/Day Years [...] st Contact Info) Description 07/05/2025 Procedure Pass [address] [place] [address] 07/26/2025 2:30 PM EST Appointment [address] [place] [address] Robert Loredo DO [address] [place] [address] [email or web address] documented as of this encounter Visit Diagnoses Not on filedocumented in this encounter Care Teams Top Stitcher Relationship Specialty Start Date End Date Robert Loredo DO [address] [place] [address] [email or web address] PCP - General 07/28/17 Robert Loredo DO [address] [place] [address] [email or web address] Insurance Assigned Provider 03/25/18 Alejandra Reveles, DEBBY [address] [place] [address] [email or web address] Currency Exchange Specialist 01/21/2002/05 Robert Loredo DO [address] [place] [address] [email or web address] Insurance Assigned Provider 10/30/22 documented as of this encounter Additional Source Comments The information contained in this document represents components of the legal health record. It is not the complete legal health record.[facility]
--- OUTSIDE RECORDS SUMMARY | 2025-07-14 20:29 | XMS_ITS | Encounter Summary ---
Author Organization [facility] Address [address] [place] [address] [place] [address] Phone Care Team Providers Care Software Developer Manager Name Role Phone Robert Loredo DO Primary Care Provider [phone] Robert Loredo DO Unavailable Alejandra Reveles RN Unavailable [email or web address] Robert Loredo DO Unavailable Encounter Details Date Type Department Care Team (Late st Contact Info) Description 12/26/2017 Ancillary Orders [address] [address] Te Pendleton DO [address] [place] [address] Orthopedics & Sports Medicine, [place] [address] [email or web address] Pain in both knees, unspecified chronicity Social [...] st Contact Info) Description 07/05/2025 Procedure Pass [address] [place] [address] 07/26/2025 2:30 PM EST Appointment [address] [place] [address] Robert Loredo DO [address] [place] [address] documented as of this encounter Visit Diagnoses Diagnosis Pain in both knees, unspecified chronicity documented in this encounter Care Teams Software Developer Manager Relationship Specialty Start Date End Date Robert Loredo DO [address] [place] [address] PCP - General 07/28/17 Robert Loredo DO [address] [place] [address] Insurance Assigned Provider 03/25/18 Alejandra Reveles, DEBBY [address] [place] [address] [email or web address] PSYCHIATRIC Manager Public 01/21/2002/05 Robert Loredo DO [address] [place] [address] Insurance Assigned Provider 10/30/22 documented as of this encounter Additional Source Comments The information contained in this document represents components of the legal health record. It is not the complete legal health record.[facility]
--- OUTSIDE RECORDS SUMMARY | 2025-07-14 20:29 | XMS_ITS | Encounter Summary ---
Author Organization [facility] Address [address] [place] [address] [place] [address] Phone Care Team Providers Care Assignment Manager Name Role Phone Robert Loredo DO Primary Care Provider [phone] Encounter Details Date Type Department Care Team (Late st Contact Info) Description 07/10/2025 Ancillary Orders [facility],Outside Imaging [address] [place], [place] [phone] Unknown, Unknown, Social History Tobacco Use Types [...] st Contact Info) Description 07/05/2025 Procedure Pass [address] [place] [address] 07/26/2025 2:30 PM EST Appointment [address] [place] [address] Robert Loredo, DO [address] [facility] [place] [address] documented as of this encounter Results * MRI Abdomen Outside (No Interpretation) (06/25/2025 12:00 AM EST) Narrative Urszula Purvis - [...] documented as of this encounter Care Teams Assignment Manager Relationship Specialty Start Date End Date Robert Loredo DO [address] [place] [address] [email or web address] PCP - General 07/28/17 documented as of this encounter Additional Source Comments The information contained in this document represents components of the legal health record. It is not the complete legal health record.[facility]
--- OUTSIDE RECORDS SUMMARY | 2025-07-14 20:29 | XMS_ITS | Encounter Summary ---
Author Organization [facility] Address [address] [place] [address] Phone Care Team Providers Care Director Of Therapy Services Name Role Phone Robert Loredo DO Primary Care Provider [phone] Robert Loredo DO Unavailable Alejandra Reveles RN Unavailable [email or web address] Robert Loredo DO Unavailable Encounter Details Date Type Department Care Team (Late st Contact Info) Description 11/23/2017 Procedure Pass [facility],Outside Imaging [address] [place] [address] Social History Tobacco Use Types Packs/Day Years [...] Contact Info) Description 07/05/2025 Procedure Pass [address] [place] [address] 07/26/2025 2:30 PM EST Appointment [address] [place], [place] [address] Robert Loredo DO [address] [place] [address] documented as of this encounter Visit Diagnoses Not on filedocumented in this encounter Care Teams Director Of Therapy Services Relationship Specialty Start Date End Date Robert Loredo DO [address] [place] [address] [email or web address] PCP - General 07/28/17 Robert Loredo DO [address] [place] [address] Insurance Assigned Provider 03/25/18 Alejandra Reveles RN [address] [place] [address] [email or web address] 01/21/2002/05 Robert Loredo DO [address] [place] [address] Insurance Assigned Provider 10/30/22 documented as of this encounter Additional Source Comments The information contained in this document represents components of the legal health record. It is not the complete legal health record.[facility]
--- OUTSIDE RECORDS SUMMARY | 2025-07-14 20:29 | XMS_ITS | Encounter Summary ---
Author Organization [facility] Address [address] [place] [address] Phone Care Team Providers Care Blasting Cap Assembler Name Role Phone Robert Loredo DO Primary Care Provider [phone] Robert Loredo DO Unavailable Encounter Details Date Type Department Care Team (Late st Contact Info) Description 09/07/2022 Procedure Pass [facility] Endoscopy Admitting Dept Virtual Department [address] [place], [place] [id number] Social History Tobacco Use Types Packs/Day Years [...] high school, GED, job training, learning the Georgian language, technical skills, or developing parenting skills)? [...] st Contact Info) Description 07/05/2025 Procedure Pass [address] [place] [address] 07/26/2025 2:30 PM EST Appointment [address] [place] [address] Robert Loredo DO [address] [place] [address] [email or web address] documented as of this encounter Visit Diagnoses Not on filedocumented in this encounter Additional Health Concerns Assessment Noted Time PHQ-9 Depression Total Score: 6 07/14/20 9:18 AM EST PHQ-2 Depression Total Score: 3 07/14/20 9:18 AM EST documented as of this encounter Care Teams Blasting Cap Assembler Relationship Specialty Start Date End Date Robert Loredo DO 29 [place] [address] [email or web address] PCP - General 07/28/17 Robert Loredo DO [address] [place] [address] [email or web address] Insurance Assigned Provider 10/30/22 documented as of this encounter Additional Source Comments The information contained in this document represents components of the legal health record. It is not the complete legal health record.[facility]
--- OUTSIDE RECORDS SUMMARY | 2025-07-14 20:29 | XMS_ITS | Encounter Summary ---
Author Organization [facility] Address [address] [place] [address] Phone Care Team Providers Care Scrap Baller Name Role Phone Robert Loredo DO Primary Care Provider [phone] Robert Loredo DO Unavailable Alejandra Reveles RN Unavailable [email or web address] Robert Loredo DO Unavailable Reason for Referral * MRI/CAT Scan - Closed Specialty Diagnoses / Procedures Referred By Libertad ellis Referred To Contact Radiology Diagnoses Compression fracture of T6 vertebra . Procedures MRI Thoracic Spine Dru Nuñez MD Phone: tel: fax: [email or web address] Referral ID Status Reason Start Date Expiration Date Visits Re quested Visits Authorized [id number] Closed 12/05/2018 01/05/2019 1 1 Encounter Details Date Type Department Care Team (Latest Contact Info) Description 11/24/2018 Transcribe Orders [facility] Department [address] [place] [address] Dru Nuñez MD [address] [facility], [address] [place] [address] [email or web address] Compression fracture of T6 vertebra (Primary [...] high school, GED, job training, learning the Liberian language, technical skills, or developing parenting skills)? [...] st Contact Info) Description 07/05/2025 Procedure Pass [address] [place] [address] 07/26/2025 2:30 PM EST Appointment [address] [place] [address] Robert Loredo, DO [address] [place] [address] [email or web address] documented as of this encounter Results * [...] T6-T7, T9-T10 and T10-T11. POS - [id number] us Dru Nuñez MD IMG MR XSPECIALTY Final Resu lt documented in this encounter Visit Diagnoses Diagnosis Compression fracture of T6 vertebra- Primary Compression fracture of T6 vertebra documented in this encounter Care Teams Scrap Baller Relationship Specialty Start Date End Date Robert Loredo DO [address] [place] [address] [email or web address] PCP - General 07/28/17 Robert Loredo DO [address] [place] [address] [email or web address] Insurance Assigned Provider 03/25/18 Alejandra Reveles RN [address] [place] [address] [email or web address] Machine Helper 01/21/2002/05 Robert Loredo DO [address] [place] [address] [email or web address] Insurance Assigned Provider 10/30/22 documented as of this encounter Additional Source Comments The information contained in this document represents components of the legal health record. It is not the complete legal health record.[facility]
--- OUTSIDE RECORDS SUMMARY | 2025-07-14 20:29 | XMS_ITS | Encounter Summary ---
Author Organization [facility] Address [address] [place] [address] [place] [address] Phone Care Team Providers Care Director Multiple Sclerosis Center Name Role Phone Robert Loredo DO Primary Care Provider [phone] Reason for Visit * Reason Onset Date Comments same day cancel 05/24/2025 Encounter Details Date Type Department Care Team (Late st Contact Info) Description 05/24/2025 Telephone [facility] [address] [place] [address] Robert Loredo DO 29 [facility] [place] [address] [email or web address] same day cancel Social History Tobacco Use [...] can cancel appointments anytime through your [facility] [place]. We appreciate your understanding. Required Scripting for [...] can cancel appointments anytime through your [facility] [place]. documented in this encounter Plan of Treatment Upcoming Encounters Date Type Department Care Team (Late st Contact Info) Description 07/05/2025 Procedure Pass [address] [place] [address] 07/26/2025 2:30 PM EST Appointment [address] [place] [address] Robert Loredo, DO 29 [facility] [place] [address] documented as of this encounter Visit Diagnoses Not on filedocumented in this encounter Additional Health Concerns Assessment Noted Time PHQ-9 Depression Total Score: 6 07/14/20 21 9:18 AM EST PHQ-2 Depression Total Score: 3 07/14/20 9:18 AM EST documented as of this encounter Care Teams Director Multiple Sclerosis Center Relationship Specialty Start Date End Date Robert Loredo DO [address] [place] [address] [email or web address] PCP - General 07/28/17 documented as of this encounter Additional Source Comments The information contained in this document represents components of the legal health record. It is not the complete legal health record.[facility]
--- OUTSIDE RECORDS SUMMARY | 2025-07-14 20:29 | XMS_ITS | Encounter Summary ---
Author Organization [facility] Address [address] [place] [address] [place] [address] Phone Care Team Providers Care Industrial Coffee Grinder Name Role Phone Robert Loredo DO Primary Care Provider [phone] Reason for Visit * Reason Onset Date Comments Triage 07/01/2025 Abdominal pain N ew Pt has been to the hospital twice, with two different diag from two different doctors. Encounter Details Date Type Department Care Team (Late st Contact Info) Description 07/01/2025 Telephone [facility] [address] [place] [address] Robert Loredo DO 29 [facility] [place] [address] Triage (Abdominal pain New Pt has been to the hospital twice, with two different diag from two different doctors. ) Social History Tobacco Use Types Packs/Day Years [...] as of this encounter Progress Notes * Caro Garcia - 07/01/2025 1:32 PM EST Patient needs 3 days to contact PT1 for his ride is scheduled for 07/04 * Wan Mccloud - 07/01/2025 12:34 PM EST [facility] PEN Top Smart Phrases: Complete the Following for ALL Patient Symptoms [facility] Red [place] Yellow Green Tool Call Back Number: (& caller's name if not the patient) [phone] Description of Symptoms: What symptoms are you experiencing? Abdominal Pain, New When did the symptoms start? 1 month Has this happened before? No - symptoms started on Nov 1) Enter the Reason for Call (TRIAGE) & RFC Comment (COLOR + Symptom) (Ex: TRIAGE - YELLOW, tick bite ) 2) Select the color-based designation below before taking next steps & documenting the outcome Red Call Designation & Outcome Red Symptom(s): Triage (Abdominal pain New Pt has been to the hospital twice, with two different diag from two different doctors. ) Call Warm Transferred & TE Routed High Priority to Nurse: HP/TE Sent to [facility] Triage DO NOT DISCONNECT THE CALL Warm transfer live call to the Triage Team & Route TE HIGH Priority to the Individual Performing Triage documented in this encounter Plan of Treatment Upcoming Encounters Date Type Department Care Team (Late st Contact Info) Description 07/05/2025 Procedure Pass [address] [place] [address] 07/26/2025 2:30 PM EST Appointment [address] [place] [address] Robert Loredo DO 29 [place] [address] documented as of this encounter Visit Diagnoses Not on filedocumented in this encounter Additional Health Concerns Assessment Noted Time PHQ-9 Depression Total Score: 6 07/14/20 21 9:18 AM EST PHQ-2 Depression Total Score: 3 07/14/20 9:18 AM EST documented as of this encounter Care Teams Industrial Coffee Grinder Relationship Specialty Start Date End Date Robert Loredo DO [address] [place] [address] [email or web address] PCP - General 07/28/17 documented as of this encounter Additional Source Comments The information contained in this document represents components of the legal health record. It is not the complete legal health record.[facility]
--- OUTSIDE RECORDS SUMMARY | 2025-07-14 20:29 | XMS_ITS | Encounter Summary ---
Author Organization [facility] Address [address] [place] [address] Phone Care Team Providers Care Talking Books Library Clerk Name Role Phone Robert Loredo DO Primary Care Provider [phone] Robert Loredo DO Unavailable Alejandra Reveles RN Unavailable [email or web address] Robert Loredo DO Unavailable Encounter Details Date Type Department Care Team (Late st Contact Info) Description 10/27/2017 Procedure Pass [facility] Endoscopy Admitting Dept Virtual Department [address] [place] [address] Social History Tobacco Use Types Packs/Day Years [...] st Contact Info) Description 07/05/2025 Procedure Pass [address] [place] [address] 07/26/2025 2:30 PM EST Appointment [address] [place] [address] Robert Loredo DO [address] [place] [address] [email or web address] documented as of this encounter Visit Diagnoses Not on filedocumented in this encounter Care Teams Talking Books Library Clerk Relationship Specialty Start Date End Date Robert Loredo DO [address] [place] [address] [email or web address] PCP - General 07/28/17 Robert Loredo DO [address] [place] [address] [email or web address] Insurance Assigned Provider 03/25/18 Alejandra Reveles, DEBBY [address] [place] [address] [email or web address] [facility] Clinical Neuropsychologist 01/21/2002/05 Robert Loredo DO [address] [place] [address] [email or web address] Insurance Assigned Provider 10/30/22 documented as of this encounter Additional Source Comments The information contained in this document represents components of the legal health record. It is not the complete legal health record.[facility]
--- OUTSIDE RECORDS SUMMARY | 2025-07-14 20:29 | XMS_ITS | Encounter Summary ---
Author Organization [facility] Address [address] [place] [address] Phone Care Team Providers Care Senior Living Advisor Name Role Phone Robert Loredo DO Primary Care Provider [phone] Robert Loredo DO Unavailable Alejandra Reveles RN Unavailable [email or web address] Robert Loredo DO Unavailable Encounter Details Date Type Department Care Team (Late st Contact Info) Description 11/08/2017 Ancillary Orders Virtual Department 30 [place] [address] Dru Nuñez MD [address] [place] [address], [address] [place], [place] [id number] [email or web address] Ataxia; Seizure Social History Tobacco Use Types [...] st Contact Info) Description 07/05/2025 Procedure Pass [facility], [address] [place] [address] 07/26/2025 2:30 PM EST Appointment [address] [place] [address] Robert Loredo, DO 29 [place] [address] [email or web address] documented as of this encounter Results * [...] and diffusion-weighted imaging with ADC map, coronal I5HSIPA and STIR, sagittal T1 sequences were obtained. [...] by: Jaqui Jacobs on 11/25/2017 1:43 PM Dru Nuñez MD IMG MR HEAD/NECK Final Resul t documented in this encounter Visit Diagnoses Diagnosis Ataxia Lack of coordination Seizure Other convulsions Ataxia Lack of coordination Seizure Other convulsions documented in this encounter Care Teams Senior Living Advisor Relationship Specialty Start Date End Date Robert Loredo DO 29 [place] [address] PCP - General 07/28/17 Robert Loredo DO 29 [place] [address] Insurance Assigned Provider 03/25/18 Alejandra Reveles, DEBBY 29 [place] [address] [email or web address] [facility] 01/21/2002/05 Robert Loredo DO 29 [place] [address] Insurance Assigned Provider 10/30/22 documented as of this encounter Additional Source Comments The information contained in this document represents components of the legal health record. It is not the complete legal health record.[facility]
--- OUTSIDE RECORDS SUMMARY | 2025-07-14 20:29 | XMS_ITS | Encounter Summary ---
Author Organization [facility] Address [address] [place] [address] [place] [address] Phone Care Team Providers Care Driller Machine Name Role Phone Robert Loredo DO Primary Care Provider [phone] Robert Loredo DO Unavailable Alejandra Reveles RN Unavailable [email or web address] Robert Loredo DO Unavailable Encounter Details Date Type Department Care Team (Latest Contact Info) Description 04/04/2019 Transcribe Orders [address] [place] [address] Dru Nuñez MD [address] [place] [address], [address] [place], [place] [id number] [email or web address] Seizure (Primary Dx) Social History Tobacco [...] high school, GED, job training, learning the Portuguese language, technical skills, or developing parenting skills)? [...] st Contact Info) Description 07/05/2025 Procedure Pass [address] [place] [address] 07/26/2025 2:30 PM EST Appointment [address] [place] [address] Robert Loredo, DO [address] [place] [address] documented as of this encounter Results * Lamotrigine level (04/04/2019 12:40 PM EDT) LAMOTRIGINE 4.3 4.0 - 18.0 mg/L [facility] Blood 04/04/2019 12:4 0 PM EDT 04/04/2019 12:44 PM EDT us Dru Nuñez MD LAB BLOOD BKR ORDERABLES Fin al Result [facility] [address] [place] [address] documented in this encounter Visit Diagnoses Diagnosis Seizure- Primary Other convulsions documented in this encounter Care Teams Driller Machine Relationship Specialty Start Date End Date Robert Loredo DO [address] [place] [address] PCP - General 07/28/17 Robert Loredo DO [address] [place] [address] [email or web address] Insurance Assigned Provider 03/25/18 Alejandra Reveles, DEBBY [address] [place] [address] [email or web address] 01/21/2002/05 Robert Loredo DO [address] [place] [address] Insurance Assigned Provider 10/30/22 documented as of this encounter Additional Source Comments The information contained in this document represents components of the legal health record. It is not the complete legal health record.[facility]
--- OUTSIDE RECORDS SUMMARY | 2025-07-14 20:29 | XMS_ITS | Encounter Summary ---
Author Organization [facility] Address [address] [place] [address] Phone Care Team Providers Care Home Care Associate Name Role Phone Robert Loredo DO Primary Care Provider [phone] Robert Loredo DO Unavailable Alejandra Reveles RN Unavailable [email or web address] Robert Loredo DO Unavailable Encounter Details Date Type Department Care Team (Latest Contact Info) Description 11/14/2017 Transcribe Orders [facility] Phleb Main [address] [place] [address] Dru Nuñez MD [address] [place] [address], [address] [place], [place] [id number] [email or web address] Numbness (Primary Dx) Social History Tobacco [...] st Contact Info) Description 07/05/2025 Procedure Pass [address] [place] [address] 07/26/2025 2:30 PM EST Appointment [address] [place] [address] Robert Loredo, DO [address] [place] [address] [email or web address] documented as of this encounter Results * Vitamin B12 (11/14/2017 12:12 PM EDT) VITAMIN B12 827 232 - 1,245 pg/mL [facility] Comment:The reference range had been changed on November 04, 2017 from 243 - 894pg/mL to 232 - 1245 pg/mL. Blood 11/14/2017 12:1 2 PM EDT 11/14/2017 12:17 PM EDT us Dru Nuñez MD LAB BLOOD BKR ORDERABLES Fin al Result Performing Organization Address City/[facility]/ZIP Co de Phone Number [address] [address] * Ceruloplasmin (11/14/2017 12:12 PM EDT) CERULOPLASMIN,S 30.0 19.0 - 31.0 mg/dL [facility] DPT OF LAB MED AND PAT+ Blood 11/14/2017 12:1 2 PM EDT 11/14/2017 12:17 PM EDT us Dru Nuñez MD LAB BLOOD ORDERABLES Final R esult [facility] DPT OF LAB MED AND PAT+ [address] [place] [address] * (ABNORMAL) Monoclonal protein study, serum (11/14/2017 12:12 PM EDT) TOTAL PROTEIN 7.3 6.3 - 7.9 g/dL [facility] DPT OF LAB MED AND PAT+ ALBUMIN 3.5 3.4 - 4.7 g/dL [facility] DPT OF LAB MED AND PAT+ ALPHA-1 GLOBULIN 0.3 0.1 - 0.3 g/dL [facility] DPT OF LAB MED AND PAT+ ALPHA-2 GLOBULIN 1.3(H) 0.6 - 1.0 g/dL [facility] DPT OF LAB MED AND PAT+ BETA-GLOBULIN 1.0 0.7 - 1.2 g/dL [facility] DPT OF LAB MED AND PAT+ GAMMA-GLOBULIN 1.3 0.6 - 1.6 g/dL [facility] DPT OF LAB MED AND PAT+ A/G RATIO 0.91 [facility] MED AND PAT+ M SPIKE Test component not applicable or not reported. not reported [facility] DPT OF LAB MED AND PAT+ M SPIKE Test component not applicable or not reported. not reported [facility] DPT OF LAB MED AND PAT+ IMPRESSION SEE NOTE [facility] DPT OF LAB MED AND PAT+ Comment: (NOTE) No apparent monoclonal protein on serum electrophoresis. See Immunofixation. IMMUNOFIXATION No monoclonal protein detected. [facility] DPT OF LAB MED AND PAT+ Blood 11/14/2017 12:1 2 PM EDT 11/14/2017 12:17 PM EDT us Dru Nuñez MD LAB BLOOD BKR ORDERABLES Fin al Result [facility] DPT OF LAB MED AND PAT+ [address] [place] [address] * (ABNORMAL) TSH (11/14/2017 12:12 PM EDT) TSH 4.88(H) 0.27 - 4.20 uIU/mL [facility] Blood 11/14/2017 12:1 2 PM EDT 11/14/2017 12:17 PM EDT us Dru Nuñez MD LAB BLOOD BKR ORDERABLES Fin al Result Performing Organization Address City/[facility]/ZIP Co de Phone Number [address] [address] * (ABNORMAL) Antinuclear antibody (GIOVANNI) (11/14/2017 12:12 PM EDT) GIOVANNI SCREEN ON HEP 2 Positive(A ) Negative [facility] Comment:An GIOVANNI Titer has bee n reflexed. The results will follow. Blood 11/14/2017 12:1 2 PM EDT 11/14/2017 12:17 PM EDT us Dru Nuñez MD LAB BLOOD BKR ORDERABLES Fin al Result Performing Organization Address [facility] Co de Phone Number [address] [address] documented in this encounter Visit Diagnoses Diagnosis Numbness- Primary Disturbance of skin sensation documented in this encounter Care Teams Home Care Associate Relationship Specialty Start Date End Date Robert Loredo DO [address] [place] [address] [email or web address] PCP - General 07/28/17 Robert Loredo DO [address] [place] [address] [email or web address] Insurance Assigned Provider 03/25/18 Alejandra Reveles RN [address] [place] [address] [email or web address] 01/21/2002/05 Robert Loredo DO [address] [place] [address] [email or web address] Insurance Assigned Provider 10/30/22 documented as of this encounter Additional Source Comments The information contained in this document represents components of the legal health record. It is not the complete legal health record.[facility]
--- OUTSIDE RECORDS SUMMARY | 2025-07-14 20:29 | XMS_ITS | Encounter Summary ---
Author Organization [facility] Address [address] [place] [address] [place] [address] Phone Care Team Providers Care Wardrobe Technician Name Role Phone Robert Loredo DO Primary Care Provider [phone] Encounter Details Date Type Department Care Team (Late st Contact Info) Description 07/10/2025 Ancillary Orders [facility],Outside Imaging [address] [place], [place] [phone] Unknown, Unknown, Social History Tobacco Use Types [...] st Contact Info) Description 07/05/2025 Procedure Pass [address] [place] [address] 07/26/2025 2:30 PM EST Appointment [address] [place] [address] Robert Loredo, DO [address] [facility] [place] [address] documented as of this encounter Results * CT Abdomen/Pelvis Outside (No Interpretation) (04/25/2025 12:00 AM EDT) Narrative SYSTEMGENERATED, DOCUMENTATION - 07/10/2025 8:45 AM EST This study [...] documented as of this encounter Care Teams Wardrobe Technician Relationship Specialty Start Date End Date Robert Loredo DO [address] [place] [address] [email or web address] PCP - General 07/28/17 documented as of this encounter Additional Source Comments The information contained in this document represents components of the legal health record. It is not the complete legal health record.[facility]
--- OUTSIDE RECORDS SUMMARY | 2025-07-14 20:29 | XMS_ITS | Clinical Summary ---
Author Organization [facility] Address [address] [place] [id number] Phone Care Team Providers Care Hotel Operations Manager Name Role Phone Robert Loredo DO Primary Care Provider [phone] Allergies Active Allergy Reactions Criticality Noted Date [...] Take 180 mg by mouth daily. Active multivitamin per tablet Take 1 tablet by mouth daily. 90 tablet 3 11/17/19 25 Active carbidopa-levod opa (SINEMET) 25-100 mg per tabletIndicatio ns:Parkinson's disease TAKE 1 TABLET BY MOUTH 3 TIMES DAILY 300 tablet 2 12/07/19 25 Active levETIRAcetam (KEPPRA) 500 MG tablet TAKE 3 TABLETS BY MOUTH TWICE DAILY 600 tablet 2 12/07/19 25 Active acetaminophen (TYLENOL) 500 MG tablet TAKE 1 TABLET BY MOUTH EVERY 6 HOURS NEEDED FOR PAIN 360 tablet 3 02/02/20 25 Active lamoTRIgine (LAMICTAL) 150 MG IMMEDIATE release tabletIndicatio ns:Parkinson's disease TAKE 1 TABLET BY MOUTH TWICE DAILY 200 tablet 2 02/19/20 25 Active levothyroxine (SYNTHROID, LEVOTHROID) 112 MCG tabletIndicatio ns:Hypothyroidi sm, unspecified type TAKE 1 TABLET BY MOUTH EVERY MORNING 90 tablet 05/06/20 25 Active cetirizine (ZYRTEC) 10 MG tablet Take 1 tablet (10 mg total) by mouth 2 (two) times a day. 180 tablet 2 07/04/20 25 Active apixaban (ELIQUIS) 5 mg (74 tabs) tablets in DVT/PE starter pack Take by mouth as directed. Take 10mg by mouth twice daily for 7 days followed by 5mg twice daily. 74 tablet 07/05/20 25 Active cetirizine (ZYRTEC) 10 MG tablet Take 1 tablet (10 mg total) by mouth daily. 90 tablet 3 11/17/19 25 025 Discontinued(Re order) diclofenac sodium (VOLTAREN) 50 MG EC tablet TAKE 1 TABLET BY MOUTH TWICE DAILY 180 tablet 3 03/01/20 25 025 Discontinued Active Problems Problem Noted Date Diagnosed Date Portal vein thrombosis 07/05/2025 Assessment & Plan (07/05/2025 6:18 PM EST): Pt to be started on eliquis. He will hold diclofenac. He will require 3-6 months of treatment and will be establishing with GI. Pancreatic mass 07/05/2025 Assessment & Plan (07/05/2025 6:06 PM EST): MRCP showing a 1.7 x 1.3 cm mass of the pancreatic head. Will order MRI with contrast to further evaluate and refer to GI. Chronic pancreatitis 07/05/2025 Assessment & Plan (07/05/2025 6:06 PM EST): Pt advised to refrain from etoh. Symptoms have improved. Has GI f/u pending. Tolerating PO. Abdominal pain, epigastric 07/04/2025 Assessment & Plan (07/05/2025 6:20 PM EST): Improved. Appears to be related to pancreatitis. Pt advised to refrain from drinking etoh. Has GI eval pending. Abnormal findings on diagnostic imaging of abdom en 07/04/2025 Xanthelasma 11/16/2024 Assessment & Plan (11/16/2024 2:06 [...] and will be following with Neurology at [facility] as he is transferring care from Dr Nuñez. 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 He is advised to get exercise during the day such as taking a walk. He is advised to refrain from ETOH completely. He is working with his therapist and has an evaluation with [employer]Y HOUSE [employer]END[employer] pending. He will be started on SSRI and he may use benadryl or melatonin at night, We'll have close f/u and consider alternative regimens prn. 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 He is advised to get exercise during the day such as taking a walk. He is advised to refrain from ETOH completely. He has an evaluation with [employer]Y HOUSE ATTENDANT pending. In the interim we will rx [...] as well if his pending visit with [employer] HOUSE ATTENDANT is not scheduled in a reasonable time frame. Assessment & Plan (07/26/2019 12:01 PM EST): Following with therapist at [facility] and waiting to see psychiatrist. Assessment & Plan (04/04/2018 9:14 AM EDT): Intake with [employer] HOUSE ATTENDANT pending. Pt given short course of lorazepam [...] PM EDT): No recent seizures. Follows with [facility] Neurology. Pt previously followed with Dr Nuñez and given a dx of epilepsy. Currently on Keppra and lamictal. He is no longer driving and exercising caution with ladders etc. Assessment & Plan (10/28/2023 12:21 PM EDT): No recent seizures. Transferring care to [facility] Neurology. Pt previously followed with Dr Nuñez and given a dx of epilepsy. Currently on Keppra and lamictal. He is no longer driving and exercising caution with ladders etc. Assessment & Plan (04/08/2022 3:14 PM EDT): No recent seizures. Transferring care to [facility] Neurology. Pt previously followed with Dr Nuñez and given a dx of epilepsy. Currently on Keppra and lamictal. He is no longer driving and exercising caution with ladders etc. ? Whether medication could be contributing to fatigue? Assessment & Plan (07/14/2021 9:51 AM EST): No seizures this year. Transferring care to [facility].Pt previously followed with Dr Nuñez and given [...] Encounters Date Type Department Care Team Description 07/12/2025 Telephone [facility] [address] [place] [address] Keeley Fonseca 07/10/2025 Ancillary Orders [facility],Outside Imaging [address] [place] [address] Vince Clarke MD 07/10/2025 Ancillary Orders [facility]Outside Imaging [address] [place] [address] Vince Clarke MD 07/10/2025 Ancillary Orders [facility],Outside Imaging [address] [place] [address] Vince Clarke MD 07/04/2025 11:00 AM EST Office Visit [facility] [address] [address] Robert Loredo DO Pancreatic mass (Primary Dx); Abdominal pain, epigastric; Abnormal findings on diagnostic imaging of abdomen; Hypothyroidism, unspecified type; Seizure disorder; Chronic pancreatitis, unspecified pancreatitis type; Portal vein thrombosis 07/01/[address] [address] Robert Loredo DO Triage (Abdominal pain New Pt has been to the hospital twice, with two different diag from two different doctors. ) 06/25/2025 - 06/25/2025 11:59 PM EST Hospital Encounter [facility],Outside Imaging [address] [place] [address] Unknown, Vince, Discharge Disposition: Home or Self Care 06/24/2025 - 06/24/2025 11:59 PM EST Hospital Encounter [facility],Outside Imaging [address] [place] [address] Unknown, Unknown, Discharge Disposition: Home or Self Care 05/24/[address] [facility] [address] [place] [phone] Robert Loredo DO same day cancel 05/17/2025 Telephone [facility] [address] [address] Robert Loredo DO Triage (Green+Back and hip pain) 05/06/[address] [address] Robert Loredo DO Medication Refill 04/26/2025 Orders Only [facility] [address] [place] [address] Provider, MD Sabi 04/25/2025 - 04/25/2025 11:59 PM EDT Hospital Encounter [facility],Outside Imaging [address] [place] [address] Unknown, Unknown, Discharge Disposition: Home or Self Care from Last 3 Months Immunizations Immunization Administration Dates Next Due COVID-19 (Pre-05/16) Tigist Vaccine, rS-Ad26, P F 02/22/2021 COVID-19 Pfizer Comirnaty Vaccine 12+ 10/28/2023 Influenza Quadrivalent MDCK Preservative Free IM 05/21/2022 Influenza Quadrivalent Preservative Free IM 09/2020,04/12/2020 Influenza, Unspecified Formulation 04/12/2020, Pneumococcal conjugate, [...] Tobacco: Never Tobacco Cessation:Ready to Q uit: Not Asked; Counseling Given: Not Answered Alcohol Use Standard [...] Sign Reading Time Taken Comments Blood Pressure 150/89 07/04/2025 10:54 AM EST Pulse 87 07/04/2025 10:52 AM EST Temperature 36.5 C (97.7 F) 07/04/2025 10:52 AM EST Respiratory Rate 20 11/16/2024 1:06 PM EDT Oxygen Saturation 97% 07/04/2025 10:52 AM EST Inhaled Oxygen Concentration 24% 07/26/2018 1 0:55 AM EST Weight 70.8 kg (156 lb) 07/09/2025 7:02 PM EST Height 172.7 cm (5' 8 ) 07/09/2025 7:02 PM EST Body Mass Index 23.72 07/09/2025 7:02 PM EST Plan of Treatment Upcoming Encounters Date Type Department Care Team (Late st Contact Info) Description 07/05/2025 Procedure Pass [facility], [facility] - [place] [place] [address] 07/26/2025 2:30 PM EST Appointment [facility], [facility] - [address] [place], [place] [address] Robert Loredo DO [address] [facility] [place] [address] [email or web address] Health Maintenance Due Date Last Done Comments COLOGUARD 02/18/2013 COLONOSCOPY 02/18/2013 COLORECTAL CANCER SCREENING 02/18/2013 FIT TEST 02/18/2013 FOBT 02/18/2013 SIGMOIDOSCOPY 02/18/2013 VIRTUAL COLONOSCOPY 02/18/2013 ZOSTER VACCINES (1 of 2) 02/18/2018 DEPRESSION SCREENING 07/14/2022 07/14/2021, 07/14/20 21 PNEUMOCOCCAL VACCINES (50+ years) (2 of 2 - PCV) 07/14/2022 07/14/2021 INFLUENZA VACCINE (#1) 2025 , 05/21/2022, 05/27/2021, Additional history exists COVID-19 VACCINE ( season) 2025 10/28/2023, 05/21/2022, 06/02/2021, Additional history exists BLOOD PRESSURE 01/02/2026 07/04/2025 CREATININE LEVEL 07/04/2026 07/04/2025, , 07/14/2021, Additional history exists SMOKING Hx and SMOKELESS TOBACCO SCREENING 07/04/2026 07/04/2025 TSH LEVEL 07/04/2026 07/04/2025, 03/25, 07/14/2021, Additional history exists Adult Td,Tdap Booster 10/18/2026 10/18/2016, 001 LIPID PANEL 07/04/2030 07/04/2025, 06/25, 09/14/2016 RSV VACCINE (1 - 1-dose 75+ series) [...] Procedure Name Priority Date/Time Associated Diagnosis Comments FREE T4 Routine 07/04/2025 12:10 PM EST Hypothyroidism, unspecified type BILIRUBIN, DIRECT Routine 07/04/2025 12: 10 PM EST Hypothyroidism, unspecified type CBC AND DIFFERENTIAL Routine 07/04/2025 12:10 PM EST Hypothyroidism, unspecified type LIPASE Routine 07/04/2025 12:10 PM EST Abdominal pain, epigastric CBC AND DIFFERENTIAL Routine 07/04/2025 12:10 PM EST Hypothyroidism, unspecified type RHEUMATOID FACTOR Routine 07/04/2025 12: 10 PM EST Arthralgia, unspecified joint SEDIMENTATION RATE (ESR) Routine 07/04/2025 12:10 PM EST Arthralgia, unspecified joint C-REACTIVE PROTEIN (CRP) Routine 07/04/2025 12:10 PM EST Arthralgia, unspecified joint ANTINUCLEAR ANTIBODY (GIOVANNI) Routine 07/04/2025 12:10 PM EST Arthralgia, unspecified joint LAMOTRIGINE LEVEL Routine 07/04/2025 12: 10 PM EST Seizure disorder TSH WITH REFLEX Routine 07/04/2025 12:10 PM EST Hypothyroidism, unspecified type LIPID PANEL Routine 07/04/2025 12:10 PM EST Primary hypertension COMPREHENSIVE METABOLIC PANEL (CMP) Routine 07/04/2025 12:10 PM EST Primary hypertension LYME SCREEN WITH REFLEX TO WESTERN BLOT, BLOOD Routine 07/04/2025 12:10 PM EST Arthralgia, unspecified joint MRI ABDOMEN OUTSIDE (NO INTERPRETATION) Routine 06/25/2025 12:[address] ABDOMEN/PELVIS OUTSIDE (NO INTERPRETATION) Routine 06/24/2025 12:00 AM EST OUTSIDE IMAGING Routine 04/25/2025 8:[address] ABDOMEN/PELVIS OUTSIDE (NO INTERPRETATION) Routine 04/25/2025 12:00 AM EDT from Last 3 Months Results * Lyme Screen with Reflex to Immunoblot (07/04/2025 12:10 PM EST) Pathologist [facility] Lyme Ab IgG Negative Negative 07/05/2025 8:56 AM EST [facility] Lyme Ab IgM Negative Negative 07/05/2025 8:56 AM [facility] Comment:A negative result do es not rule out the possibility of B.burgdorferi infection in a patient. Patients in early stages of infection may not produce detectable levels of antibody. Blood (Blood) Venipuncture / Unknown 07/04/2025 12:10 PM EST 07/04/2025 12:10 PM EST us Robert Loredo DO LAB BLOOD BKR ORDERABLES Final R esult Performing Organization Address City/State/[facility] Co de Phone Number [address] [address] * (ABNORMAL) Comprehensive Metabolic Panel (CMP) (07/04/2025 12:10 PM EST) Pathologist [facility] Sodium 138 136 - 145 mmol/L 07/04/2025 4:58 PM EST [facility] Potassium 4.1 3.4 - 5.1 mmol/L 07/04/2025 4:58 PM [facility] Chloride 98 98 - 107 mmol/L 07/04/2025 4:58 PM EST [facility] CO2 30 20 - 31 mmol/L 07/04/2025 4:58 PM [facility] BUN 11 6 - 23 mg/dL 07/04/2025 4:58 PM [facility] Creatinine 0.80 0.60 - 1.30 mg/dL 07/04/2025 4:58 PM [facility] Glucose 84 70 - 99 mg/dL 07/04/2025 4:58 PM [facility] Calcium 9.9 8.5 - 10.5 mg/dL 07/04/2025 4:58 PM [facility] AST 44(H) <40 U/L 07/04/2025 4:58 PM [facility] ALT 13 <50 U/L 07/04/2025 4:58 PM [facility] Alkaline Phosphatase 106 40 - 130 U/L 07/04/2025 4:58 PM [facility] Bilirubin, Total <0.2 0.0 - 1.2 mg/dL 07/04/2025 4:58 PM [facility] Total Protein 7.6 6.4 - 8.3 g/dL 07/04/2025 4:58 PM [facility] Albumin 4.3 3.5 - 5.2 g/dL 07/04/2025 4:58 PM [facility] Globulin 3.3 1.9 - 4.1 g/dL 07/04/2025 4:58 PM [facility] eGFR 103 >59 mL/min/1.7 3m2 07/04/2025 4:58 PM [facility] Comment:Estimated glomerular filtration rate calculated using the CKD-EPI refit equation. Anion Gap 10 3 - 17 mmol/L 07/04/2025 4:58 PM [facility] Blood (Blood) Venipuncture / Unknown 07/04/2025 12:10 PM EST 07/04/2025 12:10 PM EST us Robert Loerdo DO LAB BLOOD BKR ORDERABLES Final R esult [facility] [address] [place], [place] [id number] * (ABNORMAL) CBC and Differential (07/04/2025 12:10 PM EST) WBC 12.12(H) 4.00 - 11.00 K/uL 07/04/2025 1:22 PM [facility] RBC 4.79 4.50 - 5.90 M/uL 07/04/2025 1:22 PM [facility] Hemoglobin 15.7 13.5 - 17.5 g/dL 07/04/2025 1:22 PM [facility] Hematocrit 47.5 41.0 - 53.0 % 07/04/2025 1:22 PM [facility] MCV 99.2 80.0 - 100.0 fL 07/04/2025 1:22 PM [facility] MCH 32.8(H) 27.0 - 31.0 pg 07/04/2025 1:22 PM [facility] MCHC 33.1 32.0 - 36.0 g/dL 07/04/2025 1:22 PM [facility] MPV 9.5 8.4 - 12.0 fL 07/04/2025 1:22 PM [facility] RDW-CV 13.9 11.5 - 14.5 % 07/04/2025 1:22 PM [facility] PLT 510(H) 150 - 450 K/uL 07/04/2025 1:22 PM [facility] Neutrophils 56.1 % 07/04/2025 1:22 PM [facility] Lymphocytes 23.9 % 07/04/2025 1:22 PM [facility] Monocytes 9.4 % 07/04/2025 1:22 PM [facility] Eosinophils 8.0 % 07/04/2025 1:22 PM [facility] Basophils 1.3 % 07/04/2025 1:22 PM [facility] Imm Grans 1.3 % 07/04/2025 1:22 PM [facility] NRBC 0.0 <=0.0 /100 WBCs 07/04/2025 1:22 PM [facility] Absolute Neutrophils 6.79 1.92 - 7.60 K/uL 07/04/2025 1:22 PM [facility] Absolute Lymphocytes 2.90 0.72 - 4.10 K/uL 07/04/2025 1:22 PM [facility] Absolute Monocytes 1.14(H) 0.16 - 1.10 K/uL 07/04/2025 1:22 PM [facility] Absolute Eosinophils 0.97(H) 0.00 - 0.50 K/uL 07/04/2025 1:22 PM [facility] Absolute Basophils 0.16(H) 0.00 - 0.15 K/uL 07/04/2025 1:22 PM [facility] Absolute Imm Grans 0.16(H) 0.00 - 0.09 K/uL 07/04/2025 1:22 PM [facility] Absolute NRBC 0.00 <=0.00 K cells/uL 07/04/2025 1:22 PM [facility] Absolute Neutrophils 6.79 1.92 - 7.60 K/uL 07/04/2025 1:22 PM [facility] Comment:Automated cell count . Manual ANC may differ if performed. Diff Type Auto 07/04/2025 1:22 PM [facility] Blood (Blood) Venipuncture / Unknown 07/04/2025 12:10 PM EST 07/04/2025 12:10 PM EST Robert Loredo DO LAB BLOOD BKR ORDERABLES Final R esult [address] [address] * (ABNORMAL) Thyroid Stimulating Hormone (TSH), with Reflex (07/04/2025 12:10 PM EST) TSH 7.02(H) 0.40 - 5.00 uIU/mL 07/04/2025 4:58 PM [facility] Blood (Blood) Venipuncture / Unknown 07/04/2025 12:10 PM EST 07/04/2025 12:10 PM EST Robert Loredo DO LAB BLOOD BKR ORDERABLES Final R esult [address] [place] [address] * LAMOTRIGINE LEVEL (07/04/2025 12:10 PM EST) Lamotrigine 6.1 4.0 - 18.0 mcg/mL 07/11/2025 9:27 AM EST [facility] Comment:Limit of detection: 2 mcg/mL Blood (Blood) Venipuncture / Unknown 07/04/2025 12:10 PM EST 07/04/2025 12:10 PM EST Narrative [facility] - 07/11/2025 9:27 AM EST This test was developed and its performance characteristics determined by [facility] Main Lab. It has not been cleared or approved by the U.S. Food and Drug Administration. This laboratory is certified under the Clinical Laboratory Improvement Amendments of 1988 (CLIA-88) as qualified to perform high complexity clinical laboratory testing. [employer] LAB BLOOD BKR ORDERABLES Final R esult [address] [address] * Erythrocyte Sedimentation Rate (ESR) (07/04/2025 12:10 PM EST) Pathologist [facility] ESR 4 0 - 20 mm/h 07/04/2025 1:31 PM EST [facility] Blood (Blood) Venipuncture / Unknown 07/04/2025 12:10 PM EST 07/04/2025 12:10 PM EST [employer] LAB BLOOD BKR ORDERABLES Final R esult [address] [address] * Rheumatoid Factor (07/04/2025 12:10 PM EST) Rheumatoid Factor (RF) <10 <=14 IU/ml 07/04/2025 4:58 PM EST [facility] Blood (Blood) Venipuncture / Unknown 07/04/2025 12:10 PM EST 07/04/2025 12:10 PM EST [employer] LAB BLOOD BKR ORDERABLES Final R esult Performing Organization Address [facility] Co de Phone Number [address] [address] * C-Reactive Protein (CRP) (07/04/2025 12:10 PM EST) Pathologist [facility] C Reactive Protein 9.1 <10.0 mg/L 07/04/2025 4:58 PM EST [facility] Comment:NOTE: This reference range is for the evaluation of inflammation. Order CRP, High Sensitivity for cardiac risk status evaluation. Blood (Blood) Venipuncture / Unknown 07/04/2025 12:10 PM EST 07/04/2025 12:10 PM EST [employer] LAB BLOOD BKR ORDERABLES Final R esult Performing Organization Address [facility] de Phone Number [address] [address] * Antinuclear Antibody (GIOVANNI) (07/04/2025 12:10 PM EST) Pathologist [facility] Antinuclear Antibody (GIOVANNI) Negative Negative 1:56 PM EST [facility] GIOVANNI Interpretation The indirect immunofluorescence test on Hep2 cell substrate shows that the serum of this patient does not produce appreciable fluorescent signal at a screening titer of 1:80. 1:56 PM EST [facility] Comment: . Blood (Blood) Venipuncture / Unknown 07/04/2025 12:10 PM EST 07/04/2025 12:10 PM EST [employer] LAB BLOOD BKR ORDERABLES Final R esult Performing Organization Address City/[facility]/ZIP Co de Phone Number [address] [address] * T4, Free (07/04/2025 12:10 PM EST) T4, Free 1.1 0.9 - 1.8 ng/dL 07/04/2025 5:21 PM EST [facility] Blood (Blood) Venipuncture / Unknown 07/04/2025 12:10 PM EST 07/04/2025 12:10 PM EST [employer] LAB BLOOD BKR ORDERABLES Final R esult Performing Organization Address City/[facility]/ZIP Co de Phone Number [address] [address] * (ABNORMAL) Lipase (07/04/2025 12:10 PM EST) Lipase 68(H) 13 - 60 U/L 07/04/2025 4:58 PM EST [facility] Blood (Blood) Venipuncture / Unknown 07/04/2025 12:10 PM EST 07/04/2025 12:10 PM EST [employer] LAB BLOOD BKR ORDERABLES Final R esult Performing Organization Address [facility]/ZIP Co de Phone Number [address] [address] * Bilirubin, Direct (07/04/2025 12:10 PM EST) Bilirubin, Direct 0.1 0.0 - 0.3 mg/dL 07/04/2025 4:58 PM EST [facility] Blood (Blood) Venipuncture / Unknown 07/04/2025 12:10 PM EST 07/04/2025 12:10 PM EST [employer] LAB BLOOD BKR ORDERABLES Final R esult Performing Organization Address City/[facility]/ZIP Co de Phone Number [address] [address] * (ABNORMAL) Lipid Panel (07/04/2025 12:10 PM EST) Cholesterol 135 <200 mg/dL 07/04/2025 4:58 PM [facility] HDL 50 >=40 mg/dL 07/04/2025 4:58 PM [facility] Calculated LDL 58 <130 mg/dL 07/04/2025 4:58 PM [facility] Comment:LDL is calculated us ing the Means-NIH equation (AUNG Cardiol. 2019November 22;5(5):540-548). Non-HDL Cholesterol 85 mg/dL 07/04/2025 4:58 PM [facility] Comment:Guidelines suggest a non-HDL cholesterol goal 30 mg/dL higher than the patient-specific LDL cholesterol goal. Cardiac Risk Ratio 2.7 0.0 - 5.0 2024 4:58 PM [facility] Triglycerides 160(H) <=150 mg/dL 07/04/2025 4:58 PM [facility] Blood (Blood) Venipuncture / Unknown 07/04/2025 12:10 PM EST 07/04/2025 12:10 PM EST us Robert Loredo DO LAB BLOOD BKR ORDERABLES Final R esult Performing Organization Address City/State/[facility] Co de Phone Number [address] [address] * MRI Abdomen Outside (No Interpretation) (06/25/2025 12:00 AM EST) Narrative Urszula Purvis - 07/10/2025 8:45 AM EST This study is for PACS storage only and not for interpretation. Procedure Note Urszula Purvis - 07/10/2025 This study is for PACS storage only and not for interpretation. us Unknown Unknown MD RODRIGUEZ OUTSIDE IMAGING W/OUT INT ERPRETATION Final Result * CT Abdomen/Pelvis Outside (No Interpretation) (06/24/2025 12:00 AM EST) Narrative Urszula Purvis - 07/10/2025 8:45 AM EST This study is for PACS storage only and not for interpretation. Procedure Note Urszula Purvis - 07/10/2025 This study is for PACS storage only and not for interpretation. us Unknown Unknown MD IMG OUTSIDE IMAGING W/OUT INT ERPRETATION Final Result * Outside Imaging Report Only (04/25/2025 8:24 AM EDT) us Historical Provider IMG XR CHEST Edited Re sult - Final * CT Abdomen/Pelvis Outside (No Interpretation) (04/25/2025 12:00 AM EDT) Narrative SYSTEMGENERATED, DOCUMENTATION - 07/10/2025 8:45 AM EST This study is for PACS storage only and not for interpretation. us Unknown Unknown MD IMG OUTSIDE IMAGING W/OUT INT ERPRETATION Final Result from Last 3 Months Insurance MEDICARE PART A & B [employer] MEDICARE [address] [place] [address] MEDICARE PART A & B MEDICARE REPLACEMENT Member Subscriber Plan / Payer (Ef fective 2024-) Name:Carlos Wiggins Relation to Subscriber:Self Name:Carlos Wiggins Payer ID:[id number] (NAIC) Group ID:[id number] Type:Medicare Address: [place] [id number] [place] [id number] MEDICARE PART A & B MEDICARE [address] [place] [id number] MEDICARE PART A & B [employer] MEDICARE REPLACEMENT MEDICARE PART A & B [facility] MEDICARE REPLACEMENT [address] [place] [address] MEDICARE PART A & B [facility] MEDICARE REPL[address]EMENT [address] [place] [address] MEDICARE PART A & B [address] [place] [address] [address]ARE [address] A & B [address] [place] [address] MEDICARE PART A & B Advance Directives For more information, please contact: [phone] (9AM - 5PM [facility], Tuesday-Tuesday) Documents on File Type Date Recorded Patient Medical Insurance Clerk Expl anation Healthcare Proxy 07/31/2018 12:19 PM [...] Agent (Proxy form on file) Care Teams Hotel Operations Manager Relationship Specialty Start Date End Date Robert Loredo DO [address] [place] [id number] [email or web address] PCP - General 07/28/17 Additional Source Comments The information contained in this document represents components of the legal health record. It is not the complete legal health record.[facility]
--- OUTSIDE RECORDS SUMMARY | 2025-07-14 20:29 | XMS_ITS | Encounter Summary ---
Author Organization [facility] Address [address] [place] [address] Phone Care Team Providers Care Children'S Service Supervisor Name Role Phone Robert Loredo DO Primary Care Provider [phone] Robert Loredo DO Unavailable Alejandra Reveles RN Unavailable [email or web address] Robert Loredo DO Unavailable Encounter Details Date Type Department Care Team (Late st Contact Info) Description 08/31/2018 Procedure Pass [facility], [address] [address] Social History Tobacco Use Types Packs/Day Years [...] st Contact Info) Description 07/05/2025 Procedure Pass [address] [place], [place] [address] 07/26/2025 2:30 PM EST Appointment [address] [place], [place] [address] Robert Loredo DO [address] [place] [address] documented as of this encounter Visit Diagnoses Not on filedocumented in this encounter Care Teams Children'S Service Supervisor Relationship Specialty Start Date End Date Robert Loredo DO [address] [place] [address] [email or web address] PCP - General 07/28/17 Robert Loredo DO [address] [place] [address] Insurance Assigned Provider 03/25/18 Alejandra Reveles RN [address] [place] [address] [email or web address] 01/21/2002/05 Robert Loredo DO [address] [place] [address] [email or web address] Insurance Assigned Provider 10/30/22 documented as of this encounter Additional Source Comments The information contained in this document represents components of the legal health record. It is not the complete legal health record.[facility]
--- OUTSIDE RECORDS SUMMARY | 2025-07-14 20:29 | XMS_ITS | Encounter Summary ---
Author Organization [facility] Address [address] [place] [address] [address] [place] [address] Phone Care Team Providers Care Generator Man Name Role Phone Robert Loredo DO Primary Care Provider [phone] Robert Loredo DO Unavailable Alejandra Reveles RN Unavailable [email or web address] Robert Loredo DO Unavailable Encounter Details Date Type Department Care Team (Late st Contact Info) Description 12/26/2017 Ancillary Orders [facility] [address] [place] [id number] Te Pendleton DO [address] [place] [address] Orthopedics & Sports Medicine, [facility] [place] [address] [email or web address] Social History Tobacco Use Types Packs/Day Years [...] st Contact Info) Description 07/05/2025 Procedure Pass [address] [place] [address] 07/26/2025 2:30 PM EST Appointment [address] [place] [address] Robert Loredo DO [address] [place] [address] documented as of this encounter Visit Diagnoses Not on filedocumented in this encounter Care Teams Generator Man Relationship Specialty Start Date End Date Robert Loredo DO [address] [place] [address] PCP - General 07/28/17 Robert Loredo DO [address] [place] [address] Insurance Assigned Provider 03/25/18 Alejandra Reveles RN [address] [place] [address] [email or web address] 01/21/2002/05 Robert Loredo DO [address] [place] [id number] Insurance Assigned Provider 10/30/22 documented as of this encounter Additional Source Comments The information contained in this document represents components of the legal health record. It is not the complete legal health record.[facility]
--- OUTSIDE RECORDS SUMMARY | 2025-07-14 20:29 | XMS_ITS | Encounter Summary ---
Author Organization [facility] Address [address] [place] [address] Phone Care Team Providers Care Harness Installer Name Role Phone Robert Loredo DO Primary Care Provider [phone] Robert Loredo DO Unavailable Alejandra Reveles RN Unavailable [email or web address] Robert Loredo DO Unavailable Encounter Details Date Type Department Care Team (Late st Contact Info) Description 11/24/2018 Procedure Pass [facility], [address] [address] Social History Tobacco Use Types Packs/Day Years [...] high school, GED, job training, learning the [place] language, technical skills, or developing parenting skills)? [...] st Contact Info) Description 07/05/2025 Procedure Pass [address] [place] [address] 07/26/2025 2:30 PM EST Appointment [address] [place] [address] Robert Loredo DO [address] [place] [address] [email or web address] documented as of this encounter Visit Diagnoses Not on filedocumented in this encounter Care Teams Harness Installer Relationship Specialty Start Date End Date oRbert Loredo DO [address] [place] [address] [email or web address] PCP - General 07/28/17 Robert Loredo DO [address] [place] [address] [email or web address] Insurance Assigned Provider 03/25/18 Alejandra Reveles RN [address] [place] [address] [email or web address] 01/21/2002/05 Robert Loredo DO [address] [place] [address] [email or web address] Insurance Assigned Provider 10/30/22 documented as of this encounter Additional Source Comments The information contained in this document represents components of the legal health record. It is not the complete legal health record.[facility]
--- NOTE | 2025-07-14 20:51 | ED.GENADULT ---
HPI - General Adult General Chief complaint: Upper Respiratory Symptoms Stated complaint: flu like symptoms Time Seen by Provider: 07/14/25 20:51 History of Present Illness ED Provider: Max MADRIGAL narrative: The patient is a 55-year old man with a history of a seizure disorder, hypothyroidism, and Parkinson's disease who was hospitalized 3 weeks ago for Pancreatitis andevaluation of a pancreatic mass. As part of his evaluation he was found to have a portal vein thrombus. He ultimately ended up signing out against medical advice from the hospitalist service. He was prescribed apixaban. He says that he has subsequently followed up with his primary care doctor and he has been taking the apixaban. He says that his primary care doctor has ordered some outpatient testing to further follow up on the problem for what she was hospitalized. The patient comes to the emergency room today by ambulance because of respiratory symptoms that has been bothering him for about 2 or 3 days. He says that he has had generalized body aches, chest congestion, cough with clear phlegm, sore throat, headache, and nasal congestion. He does not know if he has had a fever. He is concerned because his roommate, Who apparently has similar symptoms, was diagnosed first with bronchitis, and subsequently with pneumonia. he is a smoker who still smokes. the patient has been an alcoholic abuser but he says he has not been drinking for a few weeks since leaving the hospital. Related Data Home Medications ?Medication ?Instructions ?Recorded ?Confirmed acetaminophen 500 mg tablet 500 mg PO Q6H PRN Pain 06/25/25 06/25/25 carbidopa 25 mg-levodopa 100 mg 1 tab PO TID 06/25/25 06/25/25 tablet cetirizine 10 mg tablet 10 mg PO DAILY 06/25/25 06/25/25 diclofenac sodium 50 mg 50 mg PO BID 06/25/25 06/25/25 tablet,delayed release lamotrigine 150 mg tablet 150 mg PO BID 06/25/25 06/25/25 levetiracetam 500 mg tablet 1,500 mg PO BID 06/25/25 06/25/25 levothyroxine 112 mcg tablet 112 mcg PO DAILY@0600 06/25/25 06/25/25 multivitamin 1 tab PO DAILY 06/25/25 06/25/25 Previous Rx's ?Medication ?Instructions ?Recorded albuterol sulfate 90 mcg/actuation 2 puff inhalation Q4-6H PRN 07/14/25 aerosol inhaler (Ventolin HFA) shortness of breath or wheezing #8.5 grams oseltamivir 75 mg capsule 75 mg PO BID 5 days #10 caps 07/14/25 Allergies Allergy/AdvReac Type Severity Reaction Status Date / Time Seasonal Allergies Allergy Intermediate Itchy Eyes Verified 07/14/25 20:13 Review of Systems Review of Systems: Yes all other systems are reviewed and are negative [facility] Past Medical History Medical History Hypothyroid Seizures Parkinson's disease Social History Social History Household Members: Friend(s) Housing: Other Do you presently have visiting nurse or other home services: No Alcohol intake: current Alcohol intake frequency: a few times a week Patient Tobacco Use Status: Current everyday Tobacco user Tobacco use type: Cigarette Advance Directives: No Advance Directives Information Provided: No Do you have a plan to hurt others: No Plan service: No Physical Exam ED Vital Signs: Vital Signs - 24 hr 07/14/25 20:10 07/14/25 20:28 07/14/25 22:29 Temperature 99.6 F 99.8 F Pulse Rate 125 H 142 H Respiratory Rate 20 18 Blood Pressure 150/98 H 158/98 H Pulse Oximetry 98 98 95 Oxygen Delivery Method Room Air Room Air Room Air 07/14/25 23:43 07/15/25 00:57 07/15/25 02:02 Temperature 99.2 F 98.5 F Pulse Rate 129 H 125 H 113 H Respiratory Rate 20 18 13 Blood Pressure 152/99 H 124/85 146/89 H Pulse Oximetry 97 94 98 Oxygen Delivery Method Room Air Room Air Room Air 07/15/25 02:05 Temperature 98.5 F Pulse Rate 113 H Respiratory Rate 13 Blood Pressure 146/89 H Pulse Oximetry 98 Oxygen Delivery Method Room Air BMI result Body Mass Index 22.8 Const Other: The patient is a chronically ill-appearing 55-year-old. He was coughing frequently with what sounded like a congestive cough. He looked somewhat unwell but did not appear overtly short of breath or in significant discomfort however. Orientation/consciousness: patient oriented x3 HENMT Other: The face is symmetrical. Mucous membranes moist. Eyes Other: Pupils are round equal, conjunctivae are clear, extraocular movements intact, No scleral icterus Neck Neck: Yes normal visual inspection, Yes full ROM, Yes no lymphadenopathy and Yes no JVD Resp Other: there was no increased work of breathing. The patient's breath sounds were fairly clear except when he was coughing. When he was coughing there were wheezes apparent. Cardio Rate: tachycardic Rhythm: regular rhythm Heart sounds: S1 normal heart sound present and S2 normal heart sound present GI Other: Abdomen is soft and nontender Skin Other: skin is pale and dry Neuro General: patient oriented x3, tone normal, moves all extremities, no focal motor deficits and CN's II-XI intact bilaterally Extrem Other: no peripheral edema. No calf swelling or tenderness. Medications Administered Generic Name Dose Route Start Last Admin Trade Name Freq PRN Reason Stop Dose Admin Lactated Ringer's 1,000 mls @ 999 mls/hr 07/15/25 01:30 07/15/25 01:34 Lr IV 07/15/25 02:30 999 mls/hr .Q1H1M TAYLOR Administration Discontinued Medications Generic Name Dose Route Start Last Admin Trade Name Freq PRN Reason Stop Dose Admin Acetaminophen 975 mg 07/14/25 22:22 07/14/25 23:02 Acetaminophen 325 Mg Tablet PO 07/14/25 22:23 975 mg ONCE ONE Administration Albuterol Sulfate 4 puff 07/14/25 21:30 07/14/25 21:49 Albuterol Sulfate 90 Mcg 8 Gm Inhaler INHALE 07/14/25 21:31 4 puff ONCE ONE Administration Carbidopa/Levodopa 1 tab 07/14/25 22:52 07/14/25 23:03 Carbidopa/Levodopa 25/100 Tablet PO 07/14/25 22:53 1 tab ONCE ONE Administration Sodium Chloride 1,000 mls @ 999 mls/hr 07/15/25 00:45 07/15/25 01:33 Ns IV 07/15/25 01:45 Infused .Q1H1M TAYLOR Infusion Oseltamivir Phosphate 75 mg 07/14/25 21:39 07/14/25 21:49 Oseltamivir Phosphate 75 Mg Capsule PO 07/14/25 21:40 75 mg ONCE ONE Administration Medical Decision Making Medical Decision Making MDM Narrative: The patient is a 55-year-old male who has a history of a seizure disorder and Parkinson's disease. He was hospitalized 3 weeks ago after presenting with the upper abdominal pain. He was found to have pancreatitis and a pancreatic mass. He was also found to have a portal vein thrombosis. He was started on apixaban as an anticoagulant. He signed out AMA from the hospital on June 27. He apparently signed out because he felt too anxious in the hospital. The patient has been an alcoholic but he claims that he has not been drinking since his hospitalization. He presents today with 2 days of symptoms of generalized body aches, chest congestion, cough with clear sputum, sore throat, headache, and nasal congestion. He has a roommate who has had similar symptoms. Here the patient has tested positive for influenza. He has a clear chest x-ray. My initial impression was that the patient could be treated simply with oseltamivir and albuterol. The patient had arrived tachycardic, however after albuterol he became considerably more tachycardic with a heart rate as high as 142. The patient was observed for awhile after that. He was actually feeling much better after a dose of acetaminophen( he was not given ibuprofen because he is on apixaban ). The patient remained significantly tachycardic however. ultimately he was given an IV and IV fluids and we checked labs. Labs show a hemoglobin of 15.8 which is up from 12.8 on June 27. This suggests hemo concentration and possible some degree of dehydration. His white count is 11.0. 80% neutrophils. EKG shows sinus tachycardia with a right bundle branch block. There was no old 12 lead EKG but there is a rhythm strip from the patient has hospitalization earlier this month which showed evidence of a right bundle branch block. The patient had a normal troponin which was drawn several hours after the patient had presented to the emergency room. Clinically the patient certainly seems to have a cough and clinical appearance consistent with a viral respiratory infection. His heart rate improved although his tachycardia did not entirely resolve after 2 L of fluid. The patient continued to say that he was feeling well and much better. He has no chest pain. No pleuritic chest pain. He has no sense of shortness of breath at this point. I Think that pulmonary embolism is unlikely as he has been on apixaban for 3 weeks. I wondered if the patient is tachycardic be related to any degree of alcohol withdrawal. The patient however says that he has not had any alcohol for a few weeks. He should follow up with his regular doctor. He should return to the emergency room if significantly worse. Lab Data 07/15/25 00:52 07/15/25 00:52 Labs: Lab Results 07/14/25 07/15/25 07/15/25 Range/Units 20:19 00:52 00:56 WBC 11.0 H (4.8-10.8) X10*3/uL RBC 4.72 D (4.60-5.80) X10*6/uL Hgb 15.8 D (14.0-18.0) g/dl Hct 45.2 D (42.0-52.0) % MCV 95.8 (80.0-98.0) fL MCH 33.5 H (27.0-33.0) pg MCHC 35.0 (31.0-36.0) g/dl RDW 13.3 (11.0-16.0) % Plt Count 344 D (160-400) X10*3/uL MPV 9.5 (9.4-12.4) fL Immature Gran % (Auto) 1.0 H (0.0-0.4) % Neut % (Auto) 79.8 H (45-73) % Lymph % (Auto) 5.9 L (20-40) % Hart % (Auto) 11.5 H (2-11) % Eos % (Auto) 0.5 (0-4) % Baso % (Auto) 1.3 (0-2) % Lymph # (Auto) 0.7 L (1.2-4.9) X10*3/uL Hart # (Auto) 1.3 H (0.1-1.2) X10*3/uL Eos # (Auto) 0.1 (0.0-0.4) X10*3/uL Baso # (Auto) 0.1 (0.0-0.2) X10*3/uL Abs Immat Gran (auto) 0.11 H (0.00-0.03) X10*3/uL Absolute Neuts (auto) 8.8 H (2.0-8.3) x10*3/uL Absolute Nucleated RBC 0.000 (0.0-0.012) X10*3/uL Nucleated RBC % (auto) 0.0 (0.0-0.2) /100WBC PT 16.3 H (11.2-13.5) SEC INR 1.3 H (0.9-1.1) VBG pH (7.32-7.43) VBG pCO2 mmHg VBG pO2 mmHg VBG HCO3 (22-26) mmol/L VBG O2 Saturation % VBG Base Excess mmol/L Sodium 134 L (135-145) mmol/L Potassium 4.1 D (3.3-5.1) mmol/L Chloride 100 (96-108) mmol/L Carbon Dioxide 23 (22-29) mmol/L Anion Gap 15 (12-20) BUN 11 (9-16) mg/dL Creatinine 0.74 (0.5-1.4) mg/dL Estim Creat Clear Calc 105.9 Estimated GFR > 60 Random Glucose 114 (60-115) mg/dL Calcium 9.4 D (8.4-10.2) mg/dL Total Bilirubin 0.2 (0.0-1.0) mg/dL Direct Bilirubin < 0.2 (0.0-0.5) mg/dL AST 24 (5-37) U/L ALT < 6 (0-40) U/L Alkaline Phosphatase 84 (39-117) U/L Troponin I High Sens 11.9 (<3.5-35.0) ng/L C-Reactive Protein 4.10 H (< or = 0.50) mg/dL NT-Pro-B Natriuret Pep 505.1 H (<300) pg/mL Total Protein 7.4 (6.5-8.0) g/dL Albumin 4.7 (3.5-5.0) g/dL Urine Color Yellow Urine Appearance Clear Urine pH 6.0 (5.0-9.0) Ur Specific [place] 1.020 (1.005-1.025) Urine Protein Trace (Neg-Trace) mg/dL Urine Glucose (UA) Negative (Negative) mg/dL Urine Ketones Negative (Negative) mg/dL Urine Blood Negative (Negative) Urine Nitrite Negative (Negative) Ur Leukocyte Esterase Negative (Negative) Ethyl Alcohol < 10 mg/dL Influenza Type A (PCR) POSITIVE A (Negative) Influenza Type B (PCR) NEGATIVE (Negative) RSV RNA Qual (PCR) NEGATIVE (Negative) SARS-CoV-2 RNA (RT-PCR) NEGATIVE (Negative) 07/15/25 Range/Units 01:01 WBC (4.8-10.8) X10*3/uL RBC (4.60-5.80) X10*6/uL Hgb (14.0-18.0) g/dl Hct (42.0-52.0) % MCV (80.0-98.0) fL MCH (27.0-33.0) pg MCHC (31.0-36.0) g/dl RDW (11.0-16.0) % Plt Count (160-400) X10*3/uL MPV (9.4-12.4) fL Immature Gran % (Auto) (0.0-0.4) % Neut % (Auto) (45-73) % Lymph % (Auto) (20-40) % Hart % (Auto) (2-11) % Eos % (Auto) (0-4) % Baso % (Auto) (0-2) % Lymph # (Auto) (1.2-4.9) X10*3/uL Hart # (Auto) (0.1-1.2) X10*3/uL Eos # (Auto) (0.0-0.4) X10*3/uL Baso # (Auto) (0.0-0.2) X10*3/uL Abs Immat Gran (auto) (0.00-0.03) X10*3/uL Absolute Neuts (auto) (2.0-8.3) x10*3/uL Absolute Nucleated RBC (0.0-0.012) X10*3/uL Nucleated RBC % (auto) (0.0-0.2) /100WBC PT (11.2-13.5) SEC INR (0.9-1.1) VBG pH 7.43 (7.32-7.43) VBG pCO2 35 mmHg VBG pO2 55 mmHg VBG HCO3 24 (22-26) mmol/L VBG O2 Saturation 88.0 % VBG Base Excess 0.6 mmol/L Sodium (135-145) mmol/L Potassium (3.3-5.1) mmol/L Chloride (96-108) mmol/L Carbon Dioxide (22-29) mmol/L Anion Gap (12-20) BUN (9-16) mg/dL Creatinine (0.5-1.4) mg/dL Estim Creat Clear Calc Estimated GFR Random Glucose (60-115) mg/dL Calcium (8.4-10.2) mg/dL Total Bilirubin (0.0-1.0) mg/dL Direct Bilirubin (0.0-0.5) mg/dL AST (5-37) U/L ALT (0-40) U/L Alkaline Phosphatase (39-117) U/L Troponin I High Sens (<3.5-35.0) ng/L C-Reactive Protein (< or = 0.50) mg/dL NT-Pro-B Natriuret Pep (<300) pg/mL Total Protein (6.5-8.0) g/dL Albumin (3.5-5.0) g/dL Urine Color Urine Appearance Urine pH (5.0-9.0) Ur Specific [place] (1.005-1.025) Urine Protein (Neg-Trace) mg/dL Urine Glucose (UA) (Negative) mg/dL Urine Ketones (Negative) mg/dL Urine Blood (Negative) Urine Nitrite (Negative) Ur Leukocyte Esterase (Negative) Ethyl Alcohol mg/dL Influenza Type A (PCR) (Negative) Influenza Type B (PCR) (Negative) RSV RNA Qual (PCR) (Negative) SARS-CoV-2 RNA (RT-PCR) (Negative) Discharge Plan Discharge Clinical Impression: Influenza, Acute viral bronchitis Patient Disposition: Home, Self-Care Instructions: Influenza (ED) Additional Instructions: you have tested positive for the flu today. Specifically you tested positive for influenza A. Your chest x-ray does not show any signs of pneumonia however. You has been started on the anti viral medication oseltamivir. This medication can be helpful in reducing the symptoms of influenza. I have also sent a prescription for the medication albuterol. Please use the inhaler every 4-6 hours as needed for coughing. If you choose to use the albuterol please be aware that it seems to have a significant effect on your heart rate. It made your heart rate fairly fast here in the emergency room. You may use [id number] acetaminophen as needed for discomfort. Drink a lot of fluids. Continue your regular medications. Follow up with your regular doctor. Return to the emergency room if significantly worse. Prescriptions: New oseltamivir 75 mg capsule 75 mg PO BID 5 Days Qty: 10 0RF albuterol sulfate [Ventolin HFA] 90 mcg/actuation HFA aerosol inhaler 2 puff inhalation Q4-6H PRN (Reason: shortness of breath or wheezing) Qty: 8.5 0RF No Action multivitamin Tablet 1 tab PO DAILY lamotrigine 150 mg tablet 150 mg PO BID cetirizine 10 mg tablet 10 mg PO DAILY levetiracetam 500 mg tablet 1,500 mg PO BID acetaminophen 500 mg tablet 500 mg PO Q6H PRN (Reason: Pain) diclofenac sodium 50 mg tablet,delayed release (DR/EC) 50 mg PO BID carbidopa-levodopa 25-100 mg tablet 1 tab PO TID levothyroxine 112 mcg tablet 112 mcg PO DAILY@0600 Referrals: Robert Loredo MD [Physician, Medical] Interventions: ED Discharge Assessment Last Done: 07/15/25 02:05 Print Language: Indonesian
[2025-07-14 21:05] LABS: Resp Syncy Virus RNA Qual PCR NEGATIVE (Negative); SARS COV2 PCR INHOUSE NEGATIVE (Negative)
[2025-07-14] MEDS: Albuterol Sulfate 90 MCG 8 GM INHALER 4 PUFF INHALE (21:49)
[2025-07-14 22:29] VITALS: BP 158/98; PULSE 142; RESP 18; TEMP 37.7; O2SAT 95
--- NOTE | 2025-07-14 22:30 | PC.NURSE ---
Pt noted to be tachy during discharge with HR 140's. MD made aware. EKG done. Medicated as per SEP. Pt placed on the quality assurance monitor body and will be monitored as per MD orders. Pt noted to be shaking. States not taken Parkinson medication. MD made aware and one dose provided. Discharge on hold at this time. Monitoring is ongoing.
--- NOTE | 2025-07-14 22:53 | ECG_ITS ---
Test Reason : TACHY Blood Pressure : */* mmHG Vent. Rate : 137 BPM Atrial Rate : 137 BPM P-R Int : 136 ms QRS Dur : 136 ms QT Int : 306 ms P-R-T Axes : 28 108 10 degrees QTcB Int : 462 ms Sinus tachycardia with occasional Premature ventricular complexes Possible Left atrial enlargement Right bundle branch block Abnormal ECG When compared with ECG of 14-Jul-2025 20:37, Premature ventricular complexes are now Present Referred By: Malachi Santana Electronically Signed By: TAMIKO KATZ MD
[2025-07-14 23:43] VITALS: BP 152/99; PULSE 129; RESP 20; TEMP 37.3; O2SAT 97
[2025-07-15 00:57] VITALS: BP 124/85; PULSE 125; RESP 18; O2SAT 94
[2025-07-15 01:02] LABS: Hematocrit 45.2 % (42.0-52.0); Hemoglobin 15.8 g/dl (14.0-18.0); Imm Gran Abs Auto 0.11 X10*3/uL (0.00-0.03); Imm Gran Pct Auto 1.0 % (0.0-0.4); Lymphocytes Absolute Auto 0.7 X10*3/uL (1.2-4.9); Mean Corpuscular HGB Conc 35.0 g/dl (31.0-36.0); Mean Corpuscular Hemoglobin 33.5 pg (27.0-33.0); Mean Corpuscular Volume 95.8 fL (80.0-98.0); NRBC Abs Auto 0.000 X10*3/uL (0.0-0.012); NRBC Pct Auto 0.0 /100WBC (0.0-0.2); Platelet Count 344 X10*3/uL (160-400); Red Blood Count 4.72 X10*6/uL (4.60-5.80); White Blood Count 11.0 X10*3/uL (4.8-10.8)
[2025-07-15 01:02] LABS: Venous Blood Gas Refer to POC result
[2025-07-15 01:03] LABS: MANUAL DIFF FLAG NO
[2025-07-15 01:03] LABS: Appearance Urine Clear; Glucose Urine UA Negative (Negative); PH 6.0 (5.0-9.0); Specific Gravity - Urine 1.020 (1.005-1.025)
[2025-07-15 01:06] LABS: VBG HCO3 24 mmol/L (22-26); VBG O2 % Saturation 88.0 %
[2025-07-15 01:12] LABS: INTERNATIONAL NORM RATIO 1.3 (0.9-1.1); Prothrombin Time 16.3 SEC (11.2-13.5)
[2025-07-15 01:21] LABS: Alanine Aminotransferase < 6 U/L (0-40); Albumin Level 4.7 g/dL (3.5-5.0); Alkaline Phosphatase 84 U/L (39-117); Anion Gap 15 (12-20); Aspartate Amino Transferase 24 U/L (5-37); Blood Urea Nitrogen 11 mg/dL (9-16); Calcium 9.4 mg/dL (8.4-10.2); Carbon Dioxide 23 mmol/L (22-29); Chloride 100 mmol/L (96-108); Creatinine Clr Calc Pharmacy 105.9; Estimated Glomerular Filt Rate > 60; Potassium 4.1 mmol/L (3.3-5.1); Sodium 134 mmol/L (135-145); Total Protein 7.4 g/dL (6.5-8.0)
[2025-07-15 01:23] LABS: Troponin-I High Sensitivity 11.9 ng/L (<3.5-35.0)
[2025-07-15 01:26] LABS: NT Pro B Type Natriuretic Pept 505.1 pg/mL (<300)
[2025-07-15] MEDS: Lactated Ringers 1,000 ML 999 ML IV (01:34)
[2025-07-15 02:02] VITALS: BP 146/89; PULSE 113; RESP 13; TEMP 36.9; O2SAT 98
[2025-07-15 02:05] VITALS: BP 146/89; PULSE 113; RESP 13; TEMP 36.9; O2SAT 98
--- NOTE | 2025-08-04 02:57 | PC.NURSE ---
Late Entry: Total volume infused in the ED prior to departure: 0.9 % Sodium Chloride 1,000 ML IV.SOLUTION
== END 2025-07-15 02:12 | disposition home or self-care (01) ==
PROVIDERS: Emergency Provider Emergency Medicine
DX: J10.1 Influenza due to other identified influenza virus with other respiratory manifestations (principal); J20.9 Acute bronchitis, unspecified; R05.9 Cough, unspecified; R10.10 Upper abdominal pain, unspecified; R00.0 Tachycardia, unspecified; Z03.818 Encounter for observation for suspected exposure to other biological agents ruled out; G20.A1 Parkinson's disease without dyskinesia, without mention of fluctuations; E03.9 Hypothyroidism, unspecified; F17.210 Nicotine dependence, cigarettes, uncomplicated; Z79.899 Other long term (current) drug therapy
CPT/HCPCS: 36415; 71045; 80048; 80076; 80307; 81003; 82803; 83880; 84484; 85025; 85610; 86140; 87637; 93005; 96360; 99284; 99285; J7120

== ENCOUNTER → 2025-07-14 20:17 | Outpatient (BNV) | payer MEDICARE, SELFPAY | PROVIDERS: Emergency Provider Emergency Medicine; Visit Provider Internal Medicine Cardiovascular Disease | DX: I45.10 Unspecified right bundle-branch block (principal); R00.0 Tachycardia, unspecified | CPT/HCPCS: 93010 ==

== ENCOUNTER → 2025-07-14 20:22 | Outpatient (BNV) | payer MEDICARE, SELFPAY | PROVIDERS: Emergency Provider Emergency Medicine; Visit Provider Nuclear Medicine | DX: R05.9 Cough, unspecified (principal) | CPT/HCPCS: 71045 ==